=== PATIENT | female | born 1985 | race Caucasian/White ===

== ENCOUNTER 2017-05-18 12:57 | Emergency (ER) | payer OTHER, SELFPAY | END 2017-05-18 15:18 | disposition home or self-care (01) | PROVIDERS: Emergency Provider Nurse Practitioner Family; Visit Provider Nurse Practitioner Family | DX: N39.0 Urinary tract infection, site not specified (principal); R31.9 Hematuria, unspecified; F17.210 Nicotine dependence, cigarettes, uncomplicated; J45.909 Unspecified asthma, uncomplicated | CPT/HCPCS: 36415; 80053; 81003; 81025; 85025; 87086; 87804; 99201 ==

== ENCOUNTER 2017-05-21 15:09 | Emergency (ER) | payer OTHER, SELFPAY | END 2017-05-21 18:29 | disposition home or self-care (01) | PROVIDERS: Emergency Provider Emergency Medicine; Visit Provider Emergency Medicine | DX: R31.9 Hematuria, unspecified (principal); R30.0 Dysuria; J45.909 Unspecified asthma, uncomplicated; Z88.1 Allergy status to other antibiotic agents; Z88.0 Allergy status to penicillin; Z88.8 Allergy status to other drugs, medicaments and biological substances | CPT/HCPCS: 74177; 80053; 81003; 81025; 82150; 83690; 84703; 85025; 96374; 96375; 99284; J2405; Q9967 ==

== ENCOUNTER → 2017-06-22 10:43 | Outpatient (REF) | payer MEDICAID, SELFPAY ==
[2017-06-22 13:31] LABS: Basophils % 0.6 % (0.1-2.0); Eosinophils # 0.3 K/mm3 (0.0-0.4); Eosinophils % 3.8 % (0.1-12.0); Hematocrit 45.5 % (37.0-47.0); Hemoglobin 15.1 g/dL (12.2-16.2); Lymphocytes # 2.2 K/mm3 (0.7-4.5); Lymphocytes % 32.3 K/mm3 (10-50); Mean Corpuscular HGB Conc 33.1 g/dL (31.8-35.4); Mean Corpuscular Hemoglobin 29.9 pg (27.0-31.2); Mean Corpuscular Volume 90.3 fl (81-99); Mean Platelet Volume 7.8 fl (7.4-10.4); Monocytes # 0.4 K/mm3 (0.1-1.0); Monocytes % 5.1 % (1.7-9.3); Neutrophils % 58.2 % (37.0-80.0); Platelet Count 277 K/mm3 (142-424); Red Blood Count 5.04 M/mm3 (4.20-5.40); Red Cell Distribution Width 12.4 % (11.5-17.5); White Blood Count 6.9 K/mm3 (4.8-10.8)
[2017-06-22 13:44] LABS: Alanine Aminotransferase 34 U/L (12-78); Albumin Level 4.4 gm/dL (3.4-5.0); Albumin/Globulin Ratio 1.4 (1.1-1.8); Alkaline Phosphatase 64 U/L (46-116); Anion Gap 12.5 mEq/L (5-15); Aspartate Amino Transferase 17 U/L (15-37); Bilirubin,Total 0.4 mg/dL (0.2-1.0); Blood Urea Nitrogen 10 mg/dL (7-18); Carbon Dioxide 26 mmol/L (21.0-32.0); Chloride 104 mmol/L (98-107); Chol/HDL Ratio 4.1 (1-3.5); Cholesterol 203 mg/dL (140-200); Creatinine,Serum 0.58 mg/dL (0.55-1.02); Estimated Glomerular Filt Rate 123 ml/min (>60); GFR (African American) 149 ML/MIN (>60); Globulin 3.1 gm/dl (1.3-3.2); Glucose 93 mg/dL (74-106); HDL Cholesterol 49 mg/dL (29-89); LDL Cholesterol 114 mg/dL (0-130); Potassium 4.5 mmoL/L (3.5-5.1); Sodium 138 mmol/L (136-145); Thyroid Stimulating Hormone 2.61 uIU/ml (0.358-3.740); Total Protein,Serum 7.5 gm/dL (6.4-8.2); Triglycerides 201 mg/dL (30-200); VLDL Cholesterol 40 mg/dL (0-40)
[2017-06-23 12:17] LABS: Folate 10.5 ng/mL (>3.0); Vitamin B12 498 pg/mL (232-1245); Vitamin D 25 Hydroxy 25.4 ng/mL (30.0-100.0)
== END ==
LOC: LAB 10:43
PROVIDERS: Visit Provider Physician Assistant
DX: R07.89 Other chest pain (principal)
CPT/HCPCS: 80053; 80061; 82607; 82652; 82746; 84443; 85025

== ENCOUNTER → 2017-06-23 08:42 | Outpatient (CLI) | payer MEDICAID, SELFPAY ==
--- NOTE | 2017-06-23 08:46 | XR_ITS ---
XR chest 2V HISTORY: ITS.REASON: chest pain ORDERING PHYSICIAN: IRMA Camejo PATIENT AGE: 31 years COMPARISON: 11/01/2016 FINDINGS: The cardiomediastinal silhouette and pulmonary vascularity are within normal limits. The lungs are clear without infiltrates, suspicious nodules, or pleural effusions. No acute bony abnormalities. IMPRESSION: Negative chest, no acute finding
== END ==
PROVIDERS: PCP Physician Assistant; Visit Provider Physician Assistant
DX: R07.9 Chest pain, unspecified (principal)
CPT/HCPCS: 71046

== ENCOUNTER → 2018-01-10 13:32 | Outpatient (CLI) | payer MEDICAID, SELFPAY ==
--- NOTE | 2018-01-10 13:34 | MR_ITS ---
MR head/brain wo con HISTORY: Visual loss in the right eye with headache and blurred vision ITS.REASON: Vision loss ORDERING PHYSICIAN: IRMA Camejo PATIENT AGE: 32 years Comparison: 05/23/2014 TECHNIQUE: Standard multiplanar multiecho sequences are performed without contrast. FINDINGS: No midline shift, mass effect, intracranial hemorrhage, or hydrocephalus. No evidence of acute infarction. There is normal bettencourt-white matter differentiation. No abnormal white matter signal intensity evident. No obvious orbital or ocular mass. The pituitary gland is unremarkable as is the optic chiasm. The hippocampal gyri are unremarkable in the temporal horns are symmetric. Unremarkable craniocervical junction Minimal amount of fluid noted in the mastoid sinuses. No sinus air-fluid level. IMPRESSION: Negative MRI of the brain without contrast, no acute finding
== END ==
PROVIDERS: PCP Physician Assistant; Visit Provider Physician Assistant
DX: H54.61 Unqualified visual loss, right eye, normal vision left eye (principal)
CPT/HCPCS: 70551

== ENCOUNTER → 2018-02-28 10:53 | Outpatient (REF) | payer MEDICAID, SELFPAY | LOC: LAB 10:53 | PROVIDERS: Visit Provider Nurse Practitioner Family | DX: N39.0 Urinary tract infection, site not specified (principal); R31.9 Hematuria, unspecified | CPT/HCPCS: 87086; 87088; 87186 ==

== ENCOUNTER → 2018-05-08 18:18 | Outpatient (CLI) | payer MEDICAID, SELFPAY ==
[2018-05-08 19:10] LABS: HCG,Quantitative 0 mIU/mL
[2018-05-09 08:23] LABS: Basophils # 0.1 K/mm3 (0-0.2); Basophils % 1.1 % (0.1-2.0); Eosinophils # 0.2 K/mm3 (0.0-0.4); Eosinophils % 2.6 % (0.1-12.0); Hematocrit 45.4 % (37.0-47.0); Hemoglobin 14.5 g/dL (12.2-16.2); Lymphocytes # 1.5 K/mm3 (0.7-4.5); Lymphocytes % 22.2 % (10-50); Mean Corpuscular Hemoglobin 30.6 pg (27.0-31.2); Mean Corpuscular Volume 95.6 fl (81-99); Mean Platelet Volume 8.5 fl (7.4-10.4); Monocytes # 0.4 K/mm3 (0.1-1.0); Monocytes % 6.2 % (1.7-9.3); Neutrophils # 4.6 K/mm3 (1.8-7.8); Neutrophils % 67.9 % (37.0-80.0); Platelet Count 329 K/mm3 (142-424); Red Blood Count 4.75 M/mm3 (4.20-5.40); Red Cell Distribution Width 13.5 % (11.5-17.5); White Blood Count 6.8 K/mm3 (4.8-10.8)
[2018-05-09 09:11] LABS: Alanine Aminotransferase 45 U/L (12-78); Albumin/Globulin Ratio 1.3 (1.1-1.8); Alkaline Phosphatase 70 U/L (46-116); Anion Gap 14.4 mEq/L (5-15); Aspartate Amino Transferase 22 U/L (15-37); Bilirubin,Total 0.3 mg/dL (0.2-1.0); Blood Urea Nitrogen 8 mg/dL (7-18); Calcium 9.1 mg/dL (8.5-10.1); Carbon Dioxide 24 mmol/L (21.0-32.0); Chloride 104 mmol/L (98-107); Chol/HDL Ratio 3.3 (1-3.5); Cholesterol 187 mg/dL (140-200); Estimated Glomerular Filt Rate 117 ml/min (>60); GFR (African American) 142 ML/MIN (>60); Globulin 3.2 gm/dl (1.3-3.2); Glucose 89 mg/dL (74-106); HDL Cholesterol 57 mg/dL (29-89); LDL Cholesterol 94 mg/dL (0-130); Potassium 4.4 mmoL/L (3.5-5.1); Sodium 138 mmol/L (136-145); T4 (Thyroxine) 6.3 ug/dl (4.7-13.3); Thyroid Stimulating Hormone 1.62 uIU/ml (0.358-3.740); Total Protein,Serum 7.2 gm/dL (6.4-8.2); Triglycerides 182 mg/dL (30-200); VLDL Cholesterol 36 mg/dL (0-40)
[2018-05-10 14:20] LABS: Vitamin D 25 Hydroxy 27.9 ng/mL (30.0-100.0)
== END ==
PROVIDERS: Visit Provider Physician Assistant
DX: R53.81 Other malaise (principal); R23.8 Other skin changes
CPT/HCPCS: 80053; 80061; 82652; 84436; 84443; 84702; 85025; 87086

== ENCOUNTER → 2018-05-16 10:28 | Outpatient (CLI) | payer MEDICAID, SELFPAY ==
[2018-05-16 12:03] LABS: Activated Partial Thrombo Time 26.8 seconds (23.6-34.0); INR 0.98 (0.9-1.1); Prothrombin Time 10.1 seconds (9.4-11.8)
[2018-05-16 12:15] LABS: Erythrocyte Sedimentation Rate 11 mm/hr (0-20)
[2018-05-17 13:17] LABS: Anti-Centromere B Antibodies <0.2 AI (0.0-0.9); Anti-Jo-1 <0.2 AI (0.0-0.9); Anti-Smith Antibody <0.2 AI (0.0-0.9); Antichromatin Antibodies <0.2 AI (0.0-0.9); Antiscleroderma-70 Antibodies <0.2 AI (0.0-0.9); RNP Antibodies <0.2 AI (0.0-0.9); Sjogren's Anti-SS-A <0.2 AI (0.0-0.9); Sjogren's Anti-SS-B <0.2 AI (0.0-0.9)
[2018-05-17 15:42] LABS: Anti-DNA (DS) Ab Qn <1 IU/mL (0-9)
[2018-05-18 21:13] LABS: PTT-LA 36.4 sec (0.0-51.9); dRVVT 44.7 sec (0.0-47.0)
[2018-05-19 06:04] LABS: Lupus Reflex Interpretation Comment: (.)
== END ==
PROVIDERS: Visit Provider Physician Assistant
DX: R58 Hemorrhage, not elsewhere classified (principal)
CPT/HCPCS: 36415; 85610; 85613; 85651; 85730; 86225; 86235

== ENCOUNTER → 2018-05-23 10:32 | Outpatient (CLI) | payer MEDICAID, SELFPAY ==
--- NOTE | 2018-05-23 10:35 | US_ITS ---
US Arterial Ankle Brachial Ind History: ITS.REASON: bilateral foot pain, diminished pulses bilateral claudication, bilateral weak pulses, bilateral rest pain, current smoker ORDERING PHYSICIAN: IRMA Camejo PATIENT AGE: 32 years TECHNIQUE: Segmental pressures obtained of both right and left leg. These are compared to brachial blood pressure to yield index at each level sampled including summary ADRIANA. The data sheets from the procedure are available in PACS FINDINGS Rest study only performed today No prior studies available for comparison. Blood pressures reported are in millimeters mercury. RIGHT LEG ADRIANA = 1.2. RIGHT LEG TBI=0.9 Brachial BP: 132 Thigh BP: 137 Calf BP: 139 Ankle PT: 158 Ankle DP : 152 Digit =113 LEFT LEG ADRIANA = 1.1 LEFT LEG TBI= 1.0 Brachial BPD: 133 Thigh BP: 136 Calf BP: 141 Ankle PT:152 Ankle DP: 142 Digit = 135 Pulses and waveforms: Normal IMPRESSION: The ABIs as reported above are within normal limits. Waveforms and pulses are also unremarkable.
== END ==
PROVIDERS: PCP Physician Assistant; Visit Provider Physician Assistant
DX: M79.671 Pain in right foot (principal); M79.672 Pain in left foot; R09.89 Other specified symptoms and signs involving the circulatory and respiratory systems; R58 Hemorrhage, not elsewhere classified
CPT/HCPCS: 93922

== ENCOUNTER 2018-08-28 12:43 | Outpatient (RCR) | payer MEDICAID, SELFPAY ==
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
== END 2018-08-28 12:45 | disposition home or self-care (01) ==
LOC: PT 12:43
PROVIDERS: Visit Provider Emergency Medicine
DX: S89.91XA Unspecified injury of right lower leg, initial encounter (principal); M25.561 Pain in right knee
CPT/HCPCS: 97163

== ENCOUNTER → 2018-08-28 15:58 | Outpatient (CLI) | payer MEDICAID, SELFPAY ==
--- NOTE | 2018-08-28 15:59 | MR_ITS ---
MR knee RT wo con HISTORY: Right knee pain anteriorly with popping ITS.REASON: R knee pain, X-Ray WNL, extreme pain ORDERING PHYSICIAN: Faisal Kunz PATIENT AGE: 32 years Comparison: 08/14/2018 TECHNIQUE: Standard multiplanar multiecho sequences are performed without contrast. FINDINGS: The cruciate ligaments, collateral ligaments, patellar tendon, and quadriceps tendon have an unremarkable appearance. Patellar cartilage is well preserved. No evidence of meniscal tear. There is a small knee joint effusion. Varices are noted along the medial aspect of the knee within the subcutaneous soft tissues. The joint spaces are well-preserved. No bone bruise or bone marrow edema evident IMPRESSION: 1.Small knee joint effusion 2. Otherwise negative Negative MRI of the right knee with no evidence of internal derangement
== END ==
PROVIDERS: PCP Nurse Practitioner Family; Visit Provider Nurse Practitioner Family
DX: M25.561 Pain in right knee (principal)
CPT/HCPCS: 73721

== ENCOUNTER 2019-04-17 16:25 | Outpatient (CLI) | payer OTHER, SELFPAY ==
[2019-04-17 16:35] VITALS: BP 135/95; PULSE 109; RESP 18; O2SAT 95
[2019-04-17 17:37] VITALS: BP 135/94; PULSE 89; RESP 18
== END 2019-04-17 17:37 | disposition home or self-care (01) ==
LOC: INF 16:26
PROVIDERS: PCP Physician Assistant; Visit Provider Physician Assistant
DX: E86.0 Dehydration (principal); R11.2 Nausea with vomiting, unspecified
CPT/HCPCS: 96360; 96375

== ENCOUNTER → 2019-08-14 09:14 | Outpatient (CLI) | payer OTHER, SELFPAY ==
--- NOTE | 2019-08-14 09:45 | CT_ITS ---
PROCEDURE: CT ANGIO CHEST CLINCIAL INDICATION: Dyspnea, chest pain, HTN, tachycardia Shortness of breath, chest pain, hypertension COMPARISON: XR CHEST 2V from 08/02/2019 TECHNIQUE: IV Contrast: 70ML OPTIRAY 350 Axial images obtained with sagittal and coronal reformats. All CT scans at the facility use one or more dose reduction, viz: automated exposure control, ma/kV adjustment per patient size (including targeted exams where dose is matched to indication, i.e. head), or iterative reconstruction technique. FINDINGS: HEART AND MEDIASTINAL STRUCTURES: No evidence of aortic aneurysm, pulmonary embolus, or aortic dissection. LUNGS AND PLEURAL SPACES: 4 mm noncalcified nodule right upper lobe nonspecific too small to categorize image 35 series 3. No other abnormalities are evident. BONY STRUCTURES: No acute bony abnormalities apparent. UPPER ABDOMEN: Unremarkable. ADDITIONAL FINDINGS: No other significant abnormalities. IMPRESSION: No acute finding. Dictated by: Cristi Guy MD 08/14/2019 12:11 Electronically signed by Cristi Guy MD in [place] 08/14/2019 12:11
== END ==
PROVIDERS: PCP Physician Assistant; Visit Provider Physician Assistant
DX: R06.00 Dyspnea, unspecified (principal); R00.0 Tachycardia, unspecified; R07.9 Chest pain, unspecified; I10 Essential (primary) hypertension
CPT/HCPCS: 71275; 93306; Q9967

== ENCOUNTER → 2019-08-24 08:56 | Outpatient (CLI) | payer OTHER, SELFPAY ==
--- NOTE | 2019-08-24 | CA_ITS ---
APPROVED REPORT Exam: Exercise Treadmill Technologist: Lachelle Hubbard, Ht: 5 ft 8 in Wt: 223 lbs BSA: 2.14 m2 HR: 108 bpm BP: 129/86 mmHg Medical History Medical History: HTN Medications: BuspAR,,,,, PropANOLOL,,,,, Cardiac Risk Factors: HTN, FHX of CAD Stress Test Details Test: Dejon HR Resting HR: 102 bpm Max Heart Rate (APMHR): 189 bpm Max HR Achieved: 172 bpm Target HR (85% APMHR): 160 bpm % of APMHR: 91 Recovery HR: 122 bpm BP Resting BP: 131.0/87.0 mmHg Max BP: 158.0/90.0 mmHg Recovery BP: 154.0/100.0 mmHg ECG Resting ECG: SINUS TACHYCARDIA Clinical Exercise duration: 07:17 min Highest Stage Achieved: Exercise capacity: 10.1 METs Stress ECG Conclusion DEJON PROTOCOL COMPLETED. EXERCISED 7:17. METS =10.1. TEST STOPPED DUE TO SHORTNESS OF BREATH RESOLVED IN RECOVERY. NO CHEST PAIN. POSITIVE SOA AT PEAK EXERICSE. NO ECTOPY NOTED. LESS THAN 1.5MM ST DEPRESSION. GXT ONLY. APPROPRIATE BP RESPONSE. NO ECTOPY. GOOD EXERCISE CAPACITY. NORMAL GXT Test Summary REST . . . . . . . Standing REST . . . . . . . Sitting REST 02:51 0.0 0.0 102 . 131/ 87 . . Stage 1 01:00 10.0 1.7 119 . . . . Stage 1 02:00 10.0 1.7 131 . . . . Stage 1 03:00 10.0 1.7 129 . 142/ 90 . . Stage 2 01:00 12.0 2.5 144 . . . . Stage 2 02:00 12.0 2.5 151 . 158/ 90 . . Stage 2 03:00 12.0 2.5 154 . 158/ 90 . . Stage 3 01:00 14.0 3.4 169 . . . . Stage 3 01:17 14.0 3.4 171 . . . Stop exercise at 07:17 RECOVERY 01:00 0.0 0.0 149 . . . . RECOVERY 02:00 0.0 0.0 127 . 154/100 . . RECOVERY 03:00 0.0 0.0 126 . 144/ 97 . . RECOVERY 04:00 0.0 0.0 117 . 151/ 92 . . RECOVERY 05:00 0.0 0.0 116 . 151/ 92 . . RECOVERY 05:37 0.0 0.0 106 . 138/ 88 . . Electronically signed by : Will Le, 08/27/2019 13:45:17
== END ==
PROVIDERS: PCP Physician Assistant; Visit Provider Nurse Practitioner Family
DX: R07.9 Chest pain, unspecified (principal); R06.02 Shortness of breath
CPT/HCPCS: 93017

== ENCOUNTER 2019-10-13 21:52 | Emergency (ER) | payer OTHER, SELFPAY ==
[2019-10-13 22:05] VITALS: BP 138/98; PULSE 112; RESP 18; TEMP 36.7; O2SAT 99; BMI 32.1
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
[2019-10-13 22:21] VITALS: BP 142/74; PULSE 81; RESP 19; TEMP 36.7; O2SAT 98
== END 2019-10-13 22:31 | disposition home or self-care (01) ==
PROVIDERS: Emergency Provider Emergency Medicine; PCP Physician Assistant
DX: T23.061A Burn of unspecified degree of back of right hand, initial encounter (principal); Y92.89 Other specified places as the place of occurrence of the external cause; X17.XXXA Contact with hot engines, machinery and tools, initial encounter; F41.8 Other specified anxiety disorders; I10 Essential (primary) hypertension; Z87.442 Personal history of urinary calculi; F17.210 Nicotine dependence, cigarettes, uncomplicated; Z88.0 Allergy status to penicillin; Z90.09 Acquired absence of other part of head and neck
CPT/HCPCS: 99281

== ENCOUNTER → 2019-10-15 09:58 | Outpatient (CLI) | payer OTHER, SELFPAY ==
--- NOTE | 2019-10-15 10:09 | XR_ITS ---
PROCEDURE: XR CHEST 2V CLINICAL HISTORY: Cough (COVID 19 negative) COMPARISON: CXR CHEST(2 VIEWS-NOT PORTABLE) from 11/01/2016 CXR2V XR chest 2V from 06/23/2017 XR CHEST 2V from 08/02/2019 FINDINGS: The cardiomediastinal silhouette and pulmonary vascularity are within normal limits. The lungs are clear without infiltrates, suspicious nodules, or pleural effusions. No acute bony abnormalities. IMPRESSION: No acute findings. Dictated by: Cristi Guy MD 10/15/2019 10:55 Electronically signed by Cristi Guy MD in [place] 10/15/2019 10:55
== END ==
PROVIDERS: PCP Physician Assistant; Visit Provider Physician Assistant
DX: R05 Cough (principal)
CPT/HCPCS: 71046

== ENCOUNTER → 2019-10-30 15:27 | Outpatient (CLI) | payer OTHER, SELFPAY ==
[2019-10-30 22:56] LABS: Coronavirus 19 IgG Antibody Negative (Negative); Coronavirus 19 IgM Antibody Negative (Negative)
== END ==
PROVIDERS: Visit Provider Physician Assistant
DX: Z03.818 Encounter for observation for suspected exposure to other biological agents ruled out (principal)
CPT/HCPCS: 36415; 86328

== ENCOUNTER → 2020-02-07 16:00 | Outpatient (CLI) | payer OTHER, SELFPAY ==
[2020-02-12 16:01] LABS: Adenovirus F 40/41, stool Not Detected (NotDetected); Astrovirus Not Detected (NotDetected); Campylobacter Not Detected (NotDetected); Clostridium Difficile A/B, PCR Not Detected (NotDetected); Cryptosporidium Not Detected (NotDetected); Cyclospora Cayetanesis Not Detected (NotDetected); Entamoeba histolytica Not Detected (NotDetected); Enteroaggregative E coli Not Detected (NotDetected); Enteropathogenic E coli Not Detected (NotDetected); Enterotoxigenic E coli Not Detected (NotDetected); Giardia lamblia Not Detected (NotDetected); Norovirus Not Detected (NotDetected); Plesimonas Shigalloides, PCR Not Detected (NotDetected); Rotavirus A Not Detected (NotDetected); Salmonella, PCR Not Detected (NotDetected); Sapovirus Not Detected (NotDetected); Shiga-like toxin E coli Not Detected (NotDetected); Shigella Enterovasive E coli Not Detected (NotDetected); Vibrio Cholerae Not Detected (NotDetected); Vibrio, PCR Not Detected (NotDetected); Yersinia Entercolitica, PCR Not Detected (NotDetected)
== END ==
PROVIDERS: Visit Provider Nurse Practitioner Family
DX: R19.7 Diarrhea, unspecified (principal)
CPT/HCPCS: 87506

== ENCOUNTER → 2020-02-27 16:25 | Outpatient (CLI) | payer OTHER, SELFPAY | PROVIDERS: Visit Provider Physician Assistant | DX: N20.0 Calculus of kidney (principal) | CPT/HCPCS: 87086; 87088; 87186 ==

== ENCOUNTER 2020-02-29 15:20 | Outpatient (CLI) | payer OTHER, SELFPAY ==
[2020-02-29 15:22] VITALS: BMI 32.5
[2020-02-29 15:43] LABS: Chloride 106 mmol/L (98-107); Sodium 137 mmol/L (136-145)
[2020-02-29 15:44] LABS: Potassium 3.5 mmoL/L (3.5-5.1)
[2020-02-29 15:45] VITALS: BP 131/91; PULSE 85; RESP 20; TEMP 36.4; O2SAT 95
[2020-02-29 15:46] LABS: Blood Urea Nitrogen 12 mg/dl (7-17)
[2020-02-29 15:47] LABS: Anion Gap 12.5 mEq/L (5-15); Calcium 9.1 mg/dl (8.4-10.2); Carbon Dioxide 22 mmol/L (22.0-30.0); Creatinine Clearance Estimated 206 mL/min (50-200); Estimated Glomerular Filt Rate 116 ml/min (>60); GFR (African American) 140 ML/MIN (>60); Glucose 166 mg/dl (74-100)
== END 2020-02-29 15:45 | disposition home or self-care (01) ==
LOC: INF 15:20
PROVIDERS: Visit Provider Nurse Practitioner Family
DX: N39.0 Urinary tract infection, site not specified (principal); Z16.12 Extended spectrum beta lactamase (ESBL) resistance
CPT/HCPCS: 80048; 96372; J1335

== ENCOUNTER 2020-03-01 06:47 | Outpatient (CLI) | payer OTHER, SELFPAY ==
[2020-03-01 07:12] VITALS: BP 113/69; PULSE 88; RESP 18; O2SAT 97
== END 2020-03-01 07:30 | disposition home or self-care (01) ==
LOC: INF 06:48
PROVIDERS: PCP Physician Assistant; Visit Provider Nurse Practitioner Family
DX: N39.0 Urinary tract infection, site not specified (principal); Z16.12 Extended spectrum beta lactamase (ESBL) resistance
CPT/HCPCS: 96372; 96374; J1335

== ENCOUNTER 2020-03-02 06:42 | Outpatient (CLI) | payer OTHER, SELFPAY ==
[2020-03-02 06:52] VITALS: BMI 32.5
[2020-03-02 07:15] VITALS: BP 131/84; PULSE 99; RESP 20; TEMP 36.9; O2SAT 95
--- NOTE | 2020-03-02 07:15 | PC.NURSE ---
verified reconstitution dose and substance with agata nath from pharmacy. 3.2 ml of lidocaine
[2020-03-02 07:16] VITALS: BP 131/84; PULSE 99; RESP 20; TEMP 36.9; O2SAT 95
--- NOTE | 2020-03-02 07:21 | PC.NURSE ---
tolerated both IM injections well to both left and right gluteus medius.
--- NOTE | 2020-03-02 07:25 | PC.NURSE ---
pt reports throat soreness and pain. nurse examined throat. told patient we would talk with md to see about ordering something because that likelihood of her developing thrush
[2020-03-02 07:30] VITALS: BP 131/84; PULSE 99; RESP 20; TEMP 36.9; O2SAT 95
--- NOTE | 2020-03-02 07:30 | PC.NURSE ---
patient off unit at this time. no distress noted
== END 2020-03-02 07:30 | disposition home or self-care (01) ==
LOC: INF 06:43
PROVIDERS: PCP Physician Assistant; Visit Provider Nurse Practitioner Family
DX: N39.0 Urinary tract infection, site not specified (principal); Z16.12 Extended spectrum beta lactamase (ESBL) resistance
CPT/HCPCS: 96372; 96374; J1335

== ENCOUNTER 2020-03-03 08:10 | Outpatient (CLI) | payer OTHER, SELFPAY ==
[2020-03-03 08:27] VITALS: BP 128/70; PULSE 102; RESP 18; TEMP 36.8; O2SAT 96
== END 2020-03-03 08:27 | disposition home or self-care (01) ==
LOC: INF 08:12
PROVIDERS: Visit Provider Nurse Practitioner Family
DX: N39.0 Urinary tract infection, site not specified (principal); Z16.12 Extended spectrum beta lactamase (ESBL) resistance
CPT/HCPCS: 96372; J1335

== ENCOUNTER → 2020-03-04 11:52 | Outpatient (CLI) | payer OTHER, SELFPAY ==
[2020-03-04 11:56] VITALS: BMI 32.5
--- NOTE | 2020-03-04 12:26 | XR_ITS ---
PROCEDURE: XR CHEST PORTABLE PICC PLAC CLINICAL HISTORY: PICC line placement COMPARISON: CR CXR2V XR chest 2V from 06/23/2017 CR XR CHEST 2V from 08/02/[address] ANGIO CHEST from 08/14/2019 DX XR CHEST 2V from 10/15/2019 FINDINGS: A PICC line has been inserted by the left subclavian approach. The tip is in satisfactory position in the region of the superior vena cava. Normal heart size. The lungs are clear without infiltrates, suspicious nodules, or pleural effusions. No acute bony abnormalities. IMPRESSION: PICC line in good position. Dictated by: Cristi Guy MD 03/04/2020 12:45 Cristi Guy MD in [place] 03/04/2020 12:45
[2020-03-04 13:00] VITALS: BP 122/74; PULSE 78; RESP 20; TEMP 36.9; O2SAT 95
[2020-03-04 13:30] VITALS: BP 118/74; PULSE 78; RESP 20; TEMP 36.9; O2SAT 95
== END ==
PROVIDERS: Visit Provider Nurse Practitioner Family
DX: N39.0 Urinary tract infection, site not specified (principal); Z16.12 Extended spectrum beta lactamase (ESBL) resistance
CPT/HCPCS: 36569; 71045; 96365; C1751; J1335

== ENCOUNTER → 2020-03-05 08:25 | Outpatient (CLI) | payer OTHER, SELFPAY ==
[2020-03-05 08:42] VITALS: BP 137/87; PULSE 88; RESP 18; TEMP 37.3; O2SAT 97
[2020-03-05 09:25] VITALS: BP 137/91; PULSE 76; RESP 18; TEMP 37.1; O2SAT 97
== END ==
PROVIDERS: Visit Provider Nurse Practitioner
DX: N39.0 Urinary tract infection, site not specified (principal); Z16.12 Extended spectrum beta lactamase (ESBL) resistance
CPT/HCPCS: 96365; J1335

== ENCOUNTER → 2020-03-05 15:11 | Outpatient (CLI) | payer OTHER, SELFPAY ==
[2020-03-05 16:58] LABS: Hemoglobin A1C 5.5 % (4.0-6.0)
[2020-03-05 22:11] LABS: Adenovirus F 40/41, stool Not Detected (NotDetected); Astrovirus Not Detected (NotDetected); Campylobacter Not Detected (NotDetected); Clostridium Difficile A/B, PCR Not Detected (NotDetected); Cryptosporidium Not Detected (NotDetected); Cyclospora Cayetanesis Not Detected (NotDetected); Enteroaggregative E coli Not Detected (NotDetected); Enteropathogenic E coli Not Detected (NotDetected); Enterotoxigenic E coli Not Detected (NotDetected); Giardia lamblia Not Detected (NotDetected); Norovirus Not Detected (NotDetected); Plesimonas Shigalloides, PCR Not Detected (NotDetected); Rotavirus A Not Detected (NotDetected); Salmonella, PCR Not Detected (NotDetected); Sapovirus Not Detected (NotDetected); Shiga-like toxin E coli Not Detected (NotDetected); Shigella Enterovasive E coli Not Detected (NotDetected); Vibrio Cholerae Not Detected (NotDetected); Vibrio, PCR Not Detected (NotDetected); Yersinia Entercolitica, PCR Not Detected (NotDetected)
[2020-03-06 00:40] LABS: Entamoeba histolytica Not Detected (NotDetected)
== END ==
PROVIDERS: Physician Assistant; Visit Provider Nurse Practitioner Family
DX: E11.9 Type 2 diabetes mellitus without complications (principal); A04.72 Enterocolitis due to Clostridium difficile, not specified as recurrent; R13.10 Dysphagia, unspecified
CPT/HCPCS: 83036; 87507

== ENCOUNTER 2020-03-06 08:18 | Outpatient (CLI) | payer OTHER, SELFPAY ==
[2020-03-06 08:21] VITALS: BP 148/82; PULSE 80; RESP 18; TEMP 36.6; O2SAT 98
[2020-03-06 09:05] VITALS: BP 132/74; PULSE 74; RESP 16; TEMP 36.6; O2SAT 98
== END 2020-03-06 09:05 | disposition home or self-care (01) ==
LOC: INF 08:19
PROVIDERS: Visit Provider Physician Assistant
DX: N39.0 Urinary tract infection, site not specified (principal); Z16.12 Extended spectrum beta lactamase (ESBL) resistance
CPT/HCPCS: 96365; J1335

== ENCOUNTER 2020-03-07 08:11 | Outpatient (CLI) | payer OTHER, SELFPAY ==
[2020-03-07 08:51] VITALS: BMI 32.5
[2020-03-07 09:05] LABS: Microscopic, Urine URINE MICROSCOPIC (MICROSCOPIC)
[2020-03-07 09:08] LABS: Appearance,Urine CLEAR (Clear); Bilirubin,Urine Negative (Negative); Blood, Urine Negative (Negative); Color,Urine DK YELLOW (Yellow); Glucose,Urine (UA) Negative (Negative); Ketones,Urine Negative (Negative); Leukocyte Esterase,Urine 1+ (Negative); Nitrate,Urine POSITIVE (Negative); PH,Urine 7.5 (5.0-8.5); Protein,Urine Negative (Negative); Specific Gravity, Urine 1.015 (1.005-1.030); Urobilinogen,Urine 0.2 EU/dl (0.2)
[2020-03-07 09:25] LABS: Bacteria,Urine 2+ /lpf; WBC,Urine 20-50 #/hpf (0-3)
== END 2020-03-07 09:05 | disposition home or self-care (01) ==
LOC: INF 08:11
PROVIDERS: Visit Provider Physician Assistant
DX: N39.0 Urinary tract infection, site not specified (principal); Z16.12 Extended spectrum beta lactamase (ESBL) resistance
CPT/HCPCS: 81001; 87086; G0463

== ENCOUNTER → 2020-04-23 10:56 | Outpatient (CLI) | payer OTHER, SELFPAY | PROVIDERS: PCP Physician Assistant; Visit Provider Physician Assistant | DX: Z03.818 Encounter for observation for suspected exposure to other biological agents ruled out (principal) | CPT/HCPCS: U0003 ==

== ENCOUNTER → 2020-04-24 11:39 | Outpatient (CLI) | payer OTHER, SELFPAY ==
--- NOTE | 2020-04-24 11:43 | XR_ITS ---
PROCEDURE: XR ANKLE LT MIN 3V CLINICAL INDICATION: left ankle pain COMPARISON: No exams were available for comparison FINDINGS: No fracture or dislocation. No lytic or blastic change. There is normal mineralization. The joint spaces are well-preserved. No significant degenerative/arthritic changes. No erosive changes evident. Other findings:None. IMPRESSION: No acute findings. Dictated by: Cristi Guy MD 04/24/2020 11:55 Cristi Guy MD in [place] 04/24/2020 11:55
== END ==
PROVIDERS: PCP Physician Assistant; Visit Provider Physician Assistant
DX: M25.572 Pain in left ankle and joints of left foot (principal)
CPT/HCPCS: 73610

== ENCOUNTER 2020-04-24 11:55 | Outpatient (RCR) | payer OTHER, SELFPAY | END 2020-04-24 12:30 | disposition home or self-care (01) | LOC: PT 11:55 | PROVIDERS: Visit Provider Physician Assistant | DX: M25.572 Pain in left ankle and joints of left foot (principal) ==

== ENCOUNTER → 2020-06-16 15:14 | Outpatient (CLI) | payer OTHER, SELFPAY | PROVIDERS: PCP Physician Assistant; Visit Provider Physician Assistant | DX: Z11.52 Encounter for screening for COVID-19 (principal) | CPT/HCPCS: U0003 ==

== ENCOUNTER → 2020-07-10 17:00 | Outpatient (CLI) | payer OTHER, SELFPAY | PROVIDERS: Visit Provider Physician Assistant | DX: L02.216 Cutaneous abscess of umbilicus (principal); T14.8XXA Other injury of unspecified body region, initial encounter | CPT/HCPCS: 87070; 87077; 87186; 87205 ==

== ENCOUNTER → 2020-10-17 11:54 | Outpatient (CLI) | payer OTHER, SELFPAY ==
[2020-10-17 12:30] LABS: Basophils # 0.1 K/mm3 (0-0.2); Basophils % 0.5 % (0.1-2.0); Eosinophils # 0.2 K/mm3 (0.0-0.4); Eosinophils % 2.1 % (0.1-12.0); Hematocrit 45.5 % (37.0-47.0); Lymphocytes # 2.3 K/mm3 (0.7-4.5); Lymphocytes % 21.9 % (10-50); Mean Corpuscular Volume 90.9 fl (81-99); Mean Platelet Volume 7.5 fl (7.4-10.4); Monocytes # 0.4 K/mm3 (0.1-1.0); Monocytes % 3.4 % (1.7-9.3); Neutrophils # 7.5 K/mm3 (1.8-7.8); Neutrophils % 72.1 % (37.0-80.0); Platelet Count 340 K/mm3 (142-424); Red Blood Count 5.01 M/mm3 (4.20-5.40); Red Cell Distribution Width 12.8 % (11.5-17.5); White Blood Count 10.4 K/mm3 (4.8-10.8)
[2020-10-17 12:43] LABS: Alanine Aminotransferase 26 U/L (12-78); Albumin Level 4.8 g/dl (3.5-5.0); Albumin/Globulin Ratio 1.7 (1.1-1.8); Alkaline Phosphatase 69 U/L (38-126); Aspartate Amino Transferase 25 U/L (14-36); Bilirubin,Total 0.5 mg/dl (0.2-1.3); Blood Urea Nitrogen 13 mg/dl (7-17); Carbon Dioxide 29 mmol/L (22.0-30.0); Chloride 106 mmol/L (98-107); Estimated Glomerular Filt Rate 96 ml/min (>60); GFR (African American) 117 ML/MIN (>60); Globulin 2.9 g/dL (1.3-3.2); Glucose 104 mg/dl (74-100); Sodium 140 mmol/L (136-145); Total Protein,Serum 7.7 g/dl (6.3-8.2)
[2020-10-17 12:45] LABS: Amphetamine/Metha Screen,Urine Negative ng/ml (<1000); Benzodiazepines Screen,Urine Negative ng/ml (<200)
[2020-10-17 12:46] LABS: Barbiturates Screen,Urine Negative ng/ml (<200)
[2020-10-17 12:47] LABS: Cannabinoid Screen,Urine Positive ng/ml (<50); Methadone Screen,Urine Negative ng/ml (<300)
[2020-10-17 12:48] LABS: Cocaine Screen,Urine Negative ng/ml (<300); Opiate Screen,Urine Negative ng/ml (<300)
[2020-10-17 12:49] LABS: Phencyclidine Screen,Urine Negative ng/ml (<25)
== END ==
PROVIDERS: Visit Provider Nurse Practitioner Psychiatric/Mental Health
DX: Z00.00 Encounter for general adult medical examination without abnormal findings (principal); Z02.83 Encounter for blood-alcohol and blood-drug test; F31.9 Bipolar disorder, unspecified; F10.20 Alcohol dependence, uncomplicated; Z79.899 Other long term (current) drug therapy
CPT/HCPCS: 36415; 80053; 80305; 85025

== ENCOUNTER 2020-11-17 17:54 | Emergency (ER) | payer OTHER, SELFPAY ==
[2020-11-17 17:59] VITALS: BP 132/77; PULSE 109; RESP 16; TEMP 36.8; O2SAT 98; BMI 30.4
--- NOTE | 2020-11-17 18:26 | HMH.EDUTC ---
[facility] [place]ression: Pleurisy Acute bronchitis Qualifiers: Bronchitis organism: unspecified organism Qualified Code(s): J20.9 - Acute bronchitis, unspecified Disposition: Home, Self-Care Condition on Discharge: Good Instructions: DI for Acute Bronchitis, Preventing the Spread of Coronavirus Discharge Instructions Additional Instructions: Drink plenty of fluids. Take tylenol for pain or fever. Return if you begin to have difficulty breathing. Follow up with your regular doctor. GO TO THE ER FOR ANY WORSENING SYMPTOMS Prescriptions: Brompheniramine/Pseudoephed/Dm [Bromfed Dm Cough Syrup] 5 ml PO Q6HP PRN #240 syrup PRN Reason: Cough Transmission Status: Received by [facility] methylPREDNISolone [Medrol] 4 mg PO DIRECTED 6 Days #21 tab.ds.pk Transmission Status: Received by [facility] Azithromycin [Z-Stoney 250mg Tab*] 250 mg PO UD DOSE PK #6 tab Transmission Status: Received by [facility] Referrals: Neema Leslie PA [Primary Care Provider] - Forms: Work/School Release Time of Disposition: 19:07 Medical Decision Making - Medical Records Medical records reviewed: No: I reviewed the patient's medical records. - Louie Inquiry Pt receiving controlled substance: No Vital Signs: 11/17/20 17:59 11/17/20 18:37 Temperature 98.3 F 98.3 F Temperature Source Oral Pulse Rate 109 H Pulse Rate [Left] 109 H Respiratory Rate 16 20 Blood Pressure 132/77 Blood Pressure [Right Arm] 132/77 Blood Pressure Mean [Right Arm] 95 02 Sat by Pulse Oximetry 98 - Lab Data Lab Results 11/17/20 18:38: Influenza Type A Ag Negative, Influenza Type B Ag Negative 11/17/20 18:38: Strep Scn [facility] Negative Orders (Tests/Meds): ED MEDICATIONS Discontinued Medications Generic Name Dose Route Start Last Admin Trade Name Freq PRN Reason Stop Dose Admin Azithromycin 500 mg 11/17/20 19:00 11/17/20 19:08 Azithromycin 250mg Tablet PO 11/17/20 19:01 500 mg ONCE ONE Administration Protocol Ibuprofen 800 mg 11/17/20 19:00 11/17/20 19:08 Ibuprofen 400 Mg Tablet PO 11/17/20 19:01 800 mg ONCE ONE Administration [facility] [place] - General Stated complaint: pain when breathing, fever Time Seen by Provider: 11/17/20 18:27 Mode of Arrival: Ambulatory Source of Information: Patient Limitations: No Limitations Description of Symptoms (Recalled from Triage Doc. by RN): Pt states that she has had a fever, right flank pain going into the hip and painful breathing for two days. HEENT Symptoms (Recalled from RN notes): No Resp Symptoms (Recalled from RN notes): Yes Skin Symptoms (Recalled from RN notes): No MS Symptoms (Recalled from RN notes): No Functional Status (Recalled from RN notes): wnl - History of Present Illness Provider Complaint: She states that for the past 2 days she has had chilling, body aches, cough and she has felt bad. She has not been vaccinated against covid. She denies sore throat. - Related Data Previous Rx's Medication Instructions Recorded ascorbic acid (vitamin C) 1,000 mg 1 g PO DAILY #90 tab 09/01/20 tablet cholecalciferol (vitamin D3) 50 100 mcg PO DAILY #180 cap 09/01/20 mcg (2,000 unit) capsule multivitamin 1 tab PO DAILY #90 tab 09/01/20 vitamin B complex 1 tab PO DAILY #90 tab 09/01/20 ammonium lactate 5 % lotion 1 applic TOPICAL BID #226 g 09/16/20 bupropion HCl 150 mg 24 hr tablet, 150 mg PO DAILY #90 tab 11/14/20 extended release cariprazine 1.5 mg capsule 1.5 mg PO DAILY #30 cap 11/14/20 fluoxetine 20 mg capsule 20 mg PO DAILY #14 cap 11/14/20 prazosin 2 mg capsule 2 mg PO QHS #30 cap 11/14/20 Azithromycin [Z-Stoney 250mg Tab*] 250 mg PO UD DOSE PK #6 tab 11/17/20 Brompheniramine/Pseudoephed/Dm 5 ml PO Q6HP PRN #240 syrup 11/17/20 [Bromfed Dm Cough Syrup] methylPREDNISolone [Medrol] 4 mg PO DIRECTED 6 Days #21 11/17/20 tab.ds.pk Allergies
[2020-11-17 18:37] VITALS: BP 132/77; PULSE 109; RESP 20; TEMP 36.8; O2SAT 98
[2020-11-17 18:46] LABS: UTC Strep Screen (Rapid) Negative (Negative)
[2020-11-17 18:48] LABS: UTC Influenza A Antigen Negative (Negative)
[2020-11-17 18:49] LABS: UTC Influenza B Antigen Negative (Negative)
== END 2020-11-17 19:09 | disposition home or self-care (01) ==
PROVIDERS: Emergency Provider Nurse Practitioner Family; PCP Physician Assistant
DX: R09.1 Pleurisy (principal); J20.9 Acute bronchitis, unspecified; I10 Essential (primary) hypertension; F41.8 Other specified anxiety disorders; F17.210 Nicotine dependence, cigarettes, uncomplicated
CPT/HCPCS: 87804; 87880; 99202; G0463

== ENCOUNTER 2021-01-24 17:28 | Emergency (ER) | payer OTHER, SELFPAY ==
[2021-01-24 18:30] VITALS: BP 102/76; PULSE 86; RESP 19; TEMP 37; O2SAT 99; BMI 30.4
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
[2021-01-24 19:02] VITALS: BP 102/76; PULSE 86; RESP 19; TEMP 37; O2SAT 99
== END 2021-01-24 19:05 | disposition home or self-care (01) ==
PROVIDERS: Emergency Provider Nurse Practitioner; PCP Physician Assistant
DX: Z20.822 Contact with and (suspected) exposure to COVID-19 (principal); R11.10 Vomiting, unspecified; F41.8 Other specified anxiety disorders; I10 Essential (primary) hypertension; Z87.442 Personal history of urinary calculi; F17.210 Nicotine dependence, cigarettes, uncomplicated
CPT/HCPCS: 99202; G0463; U0003

== ENCOUNTER → 2021-03-30 09:15 | Outpatient (CLI) | payer OTHER, SELFPAY ==
[2021-03-30 09:58] LABS: Basophils # 0.1 K/mm3 (0-0.2); Eosinophils # 0.3 K/mm3 (0.0-0.4); Eosinophils % 3.1 % (0.1-12.0); Hematocrit 46.3 % (37.0-47.0); Hemoglobin 15.5 g/dL (12.2-16.2); Lymphocytes # 2.4 K/mm3 (0.7-4.5); Lymphocytes % 27.1 % (10-50); Mean Corpuscular HGB Conc 33.5 g/dL (31.8-35.4); Mean Corpuscular Hemoglobin 31.8 pg (27.0-31.2); Mean Corpuscular Volume 94.9 fl (81-99); Mean Platelet Volume 7.8 fl (7.4-10.4); Monocytes # 0.5 K/mm3 (0.1-1.0); Monocytes % 5.8 % (1.7-9.3); Neutrophils # 5.5 K/mm3 (1.8-7.8); Platelet Count 338 K/mm3 (142-424); Red Blood Count 4.88 M/mm3 (4.20-5.40); Red Cell Distribution Width 14.2 % (11.5-17.5); White Blood Count 8.7 K/mm3 (4.8-10.8)
[2021-03-30 10:37] LABS: Chloride 109 mmol/L (98-107); Potassium 4.2 mmoL/L (3.5-5.1); Sodium 140 mmol/L (136-145)
[2021-03-30 10:39] LABS: Alanine Aminotransferase 25 U/L (12-78); Alkaline Phosphatase 72 U/L (38-126); Aspartate Amino Transferase 27 U/L (14-36); Blood Urea Nitrogen 5 mg/dl (7-17); Estimated Glomerular Filt Rate 142 ml/min (>60); GFR (African American) 172 ML/MIN (>60)
[2021-03-30 10:40] LABS: Albumin Level 3.7 g/dl (3.5-5.0); Albumin/Globulin Ratio 1.6 (1.1-1.8); Anion Gap 11.2 mEq/L (5-15); Carbon Dioxide 24 mmol/L (22.0-30.0); Globulin 2.3 g/dL (1.3-3.2); Glucose 89 mg/dl (74-100); Iron 66 ug/dL (37-170)
[2021-03-30 10:44] LABS: Bilirubin,Total 0.1 mg/dl (0.2-1.3)
[2021-03-30 10:50] LABS: Total Iron Binding Capacity 373 ug/dL (265-497)
[2021-03-30 10:53] LABS: 25-OH Vitamin D, Total 47.5 ng/mL (30-100)
[2021-03-30 11:11] LABS: Thyroid Stimulating Hormone 3.38 uIU/mL (0.465-4.68)
[2021-03-30 11:15] LABS: Ferritin 26.7 ng/ml (6.24-137)
== END ==
PROVIDERS: PCP Physician Assistant; Visit Provider Physician Assistant
DX: R00.0 Tachycardia, unspecified (principal); E66.3 Overweight; Z68.31 Body mass index [BMI] 31.0-31.9, adult
CPT/HCPCS: 36415; 80053; 82306; 82728; 83540; 83550; 84443; 85025; 93225; 93226

== ENCOUNTER → 2021-04-13 13:26 | Outpatient (CLI) | payer OTHER, SELFPAY ==
--- NOTE | 2021-04-13 13:27 | CA_ITS ---
APPROVED REPORT EXAM: Comprehensive 2D, Doppler, and color-flow Echocardiogram Dispatcher Maintenance Service: Karrie Metz RVT Ht: 5 ft 8 in Wt: 204lbs BSA: 2.06 BP: 122/70 mmHg Indications: TACHYCARDIA,SMOKER,HTN 2D Dimensions LVOT 2.15 cm (M/F) 1.5-2.5 LA Volume 31.40 mL LA Volume Index 15.24 mL/m2 (M/F) 16-34 M-Mode Dimensions RVDd 3.11 cm (0.9-2.6) LA Diam 3.25 cm (1.9-4.0) LVDd 3.33 cm (3.5-5.7) Ao Diam 2.89 cm (2.0-3.7) LVDs 2.04 cm (3.5-5.7) IVSd 1.14 cm (0.6-1.1) PWd 1.07 cm (0.6-1.1) EF (Teich) 70.30% FS 38.70% EDV (Teich) 45.10 mL TAPSE 1.90 (<1.7) ESV (Teich) 13.40 mL LV Diastology E Decel Time 150.00 (160-240 msec) E/A Ratio 0.7 MED E' 3.80 (< 7 cm/sec) E'/MED E' Ratio 17.50 (>14) LAT E' 15.40 (<10 cm/sec) E/LAT E' Ratio 4.32 (>14) Aortic Valve AO VTI 19.76 (18-25 cm) Mitral Valve MV E Max Russel. 66.00 (40-130 cm/s) MV A Velocity 98.00 (40-130 cm/s) E/A Ratio 0.68 MV Decel. Time 150.00 (160-240 ms) MV PHT 44.00 ms Pulmonary Valve PV Peak Velocity 118.00 (50-150 cm/s) Tricuspid Valve TR P. Velocity 146.00 cm/s RAP Estimate 10.00 mmHg RVSP 18.50 mmHg Left Ventricle Left atrium is upper limit of normal size, left ventricle is normal size, hyperdynamic left ventricular systolic function, visually estimated ejection fraction 55 to 60% with no obvious regional wall motion abnormality. Diastolic parameters are inconclusive. Right Ventricle Right atrium and right ventricle qualitatively normal size and contractility. Aortic Valve Aortic valve is grossly normal, there is no aortic stenosis or aortic insufficiency. Mitral Valve Mitral valve grossly normal, there is trace mitral regurgitation. Tricuspid Valve Tricuspid valve grossly normal, there is trace tricuspid regurgitation, tricuspid regurgitation jet velocity is inadequate for calculation of the right ventricular systolic pressure. Pulmonic Valve Pulmonic valve is poorly visualized. Great Vessels Aortic root is normal size. Inferior vena cava is normal size with normal inspiratory collapse. Pericardium No significant pericardial effusion noted. Conclusion 1. Technically difficult study, patient was tachycardic throughout the study, normal left ventricular size, hyperdynamic left ventricular systolic function, visually estimated ejection fraction 55 to 60% with no regional wall motion abnormality, diastolic parameters are inconclusive. 2. Trace mitral and tricuspid regurgitation. 3. No significant pericardial effusion noted. 4. Inferior vena cava is normal size with normal inspiratory collapse. Electronically signed by : Kwabena Rider MD 04/14/2021 06:36:42
== END ==
PROVIDERS: PCP Physician Assistant; Visit Provider Physician Assistant
DX: R00.0 Tachycardia, unspecified (principal)
CPT/HCPCS: 93306

== ENCOUNTER → 2021-06-10 18:24 | Outpatient (CLI) | payer OTHER, SELFPAY ==
[2021-06-12 22:07] LABS: Neisseria gonorrhoeae, NAA Negative (Negative)
== END ==
PROVIDERS: Visit Provider Nurse Practitioner Family
DX: L29.2 Pruritus vulvae (principal); R20.8 Other disturbances of skin sensation; N76.0 Acute vaginitis
CPT/HCPCS: 87491; 87591

== ENCOUNTER → 2021-07-02 13:07 | Outpatient (CLI) | payer OTHER, SELFPAY | PROVIDERS: Visit Provider Nurse Practitioner | DX: Z20.822 Contact with and (suspected) exposure to COVID-19 (principal) | CPT/HCPCS: C9803; U0003; U0005 ==

== ENCOUNTER → 2021-09-15 16:25 | Outpatient (CLI) | payer OTHER, SELFPAY ==
[2021-09-15 17:36] LABS: Basophils # 0.1 K/mm3 (0-0.2); Basophils % 1.5 % (0.1-2.0); Eosinophils # 0.3 K/mm3 (0.0-0.4); Eosinophils % 3.5 % (0.1-12.0); Hematocrit 43.7 % (37.0-47.0); Hemoglobin 14.5 g/dL (12.2-16.2); Lymphocytes # 2.4 K/mm3 (0.7-4.5); Mean Corpuscular HGB Conc 33.1 g/dL (31.8-35.4); Mean Corpuscular Hemoglobin 31.7 pg (27.0-31.2); Mean Corpuscular Volume 95.7 fl (81-99); Mean Platelet Volume 8.3 fl (7.4-10.4); Monocytes # 0.5 K/mm3 (0.1-1.0); Monocytes % 5.9 % (1.7-9.3); Neutrophils # 4.6 K/mm3 (1.8-7.8); Neutrophils % 58.1 % (37.0-80.0); Platelet Count 352 K/mm3 (142-424); Red Blood Count 4.57 M/mm3 (4.20-5.40); Red Cell Distribution Width 13.5 % (11.5-17.5); White Blood Count 7.9 K/mm3 (4.8-10.8)
[2021-09-15 18:33] LABS: Alanine Aminotransferase 88 U/L (12-78); Albumin Level 4.2 g/dl (3.5-5.0); Albumin/Globulin Ratio 1.7 (1.1-1.8); Alkaline Phosphatase 69 U/L (38-126); Amylase 37 U/L (30-110); Anion Gap 10.8 mEq/L (5-15); Aspartate Amino Transferase 44 U/L (14-36); Bilirubin,Total 0.3 mg/dl (0.2-1.3); Blood Urea Nitrogen 9 mg/dl (7-17); Calcium 9.4 mg/dl (8.4-10.2); Carbon Dioxide 26 mmol/L (22.0-30.0); Chloride 108 mmol/L (98-107); Estimated Glomerular Filt Rate 114 ml/min (>60); GFR (African American) 138 ML/MIN (>60); Globulin 2.5 g/dL (1.3-3.2); Glucose 79 mg/dl (74-100); Lipase 58 U/L (23-300); Potassium 4.8 mmoL/L (3.5-5.1); Sodium 140 mmol/L (136-145); Total Protein,Serum 6.7 g/dl (6.3-8.2)
[2021-09-15 18:55] LABS: HCG,Quantitative < 2 mIU/ml (0-5.42)
== END ==
PROVIDERS: PCP Physician Assistant; Visit Provider Physician Assistant
DX: R10.13 Epigastric pain (principal); R11.2 Nausea with vomiting, unspecified
CPT/HCPCS: 36415; 80053; 82150; 83690; 84702; 85025

== ENCOUNTER → 2021-10-03 13:54 | Outpatient (CLI) | payer OTHER, SELFPAY | PROVIDERS: PCP Physician Assistant; Visit Provider Physician Assistant | DX: Z11.52 Encounter for screening for COVID-19 (principal) | CPT/HCPCS: C9803; U0003; U0005 ==

== ENCOUNTER 2021-10-06 09:12 | Day surgery (SDC) | payer OTHER, SELFPAY ==
[2021-10-05 09:05] VITALS: BMI 34.3
[2021-10-06 09:33] LABS: Urine Pregnancy, HCG Qual. Negative (Negative)
[2021-10-06 09:37] VITALS: BP 117/79; PULSE 83; RESP 16; TEMP 36.4; O2SAT 96
--- NOTE | 2021-10-06 09:38 | P.PN_ITS ---
[facility] Anest[facility] Check[facility] - Patient Identification Patient Identification: Arm Band - Structural Data Admitted From: Home Planned Operative Procedure/s: EGD Consent for Planned Operative Procedure(s) Verified: Yes - NPO Status Verified Time NPO: 00:00 - Airway Assessment C-Spine Mobility Assessed: Yes TMJ Mobility Assessed: Yes Dentition: Good Dentition - Neurological Assessment Level of Consciousness: Awake Hx Seizures: No Numbness or tingling in extremities: No - Anesthesia Plan Anesthesia Risk discussed: Yes Anesthesia Plan: Verified ASA Class: II Anesthesia Type: [facility] History I have reviewed the patient's past medical history: Yes Medical History: Reports:: Anxiety, Depression, Hypertension, Kidney Stones Denies:: Cancer, Diabetes Mellitus Type 1, Diabetes Mellitus Type 2, Internal Pacemaker, MRSA *Have you ever received a pneumonia vaccine?: No *Have you received a flu vaccine this season?: No Other Medical History: Reports: Other Anesthesia experience/problems:: None Laterality Cases: Bilateral: Myringotomy (Ear Tubes), Tonsillectomy Other Surgeries: Yes: Tubal Ligation, Other. No: Pacemaker Amputation: No Fractures: No - *Social History Last grade of school completed: High school graduate Smoking Status: Current every day smoker Tobacco Type: cigarettes # Packs/Day (cigarettes): 1 Alcohol Intake: current Alcohol Intake Frequency:: a few times a week Substance Use Type: marijuana *Occupational Status:: unemployed Housing: apartment Household Members: children *Travel in the last 8 weeks: None - Psychiatric History Pschychiatric History:: Reports:: Anxiety, Depression Family Hx:: Cancer
[2021-10-06 09:51] VITALS: O2SAT 97
--- NOTE | 2021-10-06 10:03 | [facility].SCOPE ---
- Procedure: Date: 10/06/21 Patient Date of :: 1985 Procedure Performed:: Esophagogastroduodenoscopy with biopsy Indications:: Melena Epigastric pain History of peptic ulcer disease Nausea/vomiting Performing Provider:: Joseph Olsno MD Referring Provider:: . Sedation:: Monitored anesthesia care Procedure:: After informed consent was obtained the patient was taken to the endoscopy suite. Sedation ensued after the patient was transferred to the left lateral decubitus position. Pulse, blood pressure, and oxygen saturation were monitored throughout the procedure. The endoscope was advanced beyond the duodenal bulb. Retroflexion within the gastric lumen was accomplished. The gastroscope was carefully removed and the patient was transferred to recovery in stable condition. Please see findings and specimens below for detail. Findings:: Gastroesophageal junction at 36 cm Sliding hiatal hernia Mild gastritis No obvious ulceration No sign of active or recent hemorrhage Specimens:: Antral biopsy Recommendations:: Follow-up pathology Consider UGI/SBFT followed by capsule endoscopy Consider gastric emptying scan Complications:: No immediate Estimated blood obtained (mL): 1
[2021-10-06 10:04] VITALS: BP 111/68; PULSE 110; RESP 16; TEMP 36.5; O2SAT 95
[2021-10-06 10:14] VITALS: BP 130/79; PULSE 83; RESP 16; O2SAT 97
[2021-10-06 10:24] VITALS: BP 126/76; PULSE 82; RESP 16; O2SAT 98
[2021-10-06 10:38] VITALS: BP 121/77; PULSE 80; RESP 16; TEMP 36.5; O2SAT 97
== END 2021-10-06 10:38 | disposition home or self-care (01) ==
LOC: OUTP 09:13
PROVIDERS: PCP Physician Assistant; Visit Provider Surgery
PROC: 0DJ08ZZ Inspection of Upper Intestinal Tract, Via Natural or Artificial Opening Endoscopic (ICD-10-PCS; CPT 43235; principal; 2021-10-06 11:30)
DX: K92.1 Melena (principal); Z87.11 Personal history of peptic ulcer disease; K29.70 Gastritis, unspecified, without bleeding; K44.9 Diaphragmatic hernia without obstruction or gangrene; R10.13 Epigastric pain; R11.2 Nausea with vomiting, unspecified; F41.9 Anxiety disorder, unspecified; F32.A Depression, unspecified; I10 Essential (primary) hypertension; Z72.0 Tobacco use; Z80.9 Family history of malignant neoplasm, unspecified; Z88.1 Allergy status to other antibiotic agents
CPT/HCPCS: 43239; 81025

== ENCOUNTER → 2021-12-16 14:23 | Outpatient (CLI) | payer OTHER, SELFPAY ==
[2021-12-16 13:45] LABS: Adenovirus,PCR Not Detected (NotDetected); Bordetella Pertussis Not Detected (NotDetected); Chlamydophila Pneumoniae, PCR Not Detected (NotDetected); Coronavirus 19, PCR Not Detected (NotDetected); Coronavirus 229E Not Detected (NotDetected); Coronavirus NL63 Not Detected (NotDetected); Coronavirus OC43 Not Detected (NotDetected); Coronovirus HKU1,PCR Not Detected (NotDetected); Human Metapneumovirus Not Detected (NotDetected); Influenza A, PCR Not Detected (NotDetected); Influenza AH1, 2009 Not Detected (NotDetected); Influenza AH1, PCR Not Detected (NotDetected); Influenza AH3,PCR Not Detected (NotDetected); Influenza B, PCR Not Detected (NotDetected); Mycoplasma Pneumoniae, PCR Not Detected (NotDetected); Parainfluenza 1, PCR Not Detected (NotDetected); Parainfluenza 2, PCR Not Detected (NotDetected); Parainfluenza 3, PCR Not Detected (NotDetected); Parainfluenza 4, PCR Not Detected (NotDetected); Respiratory Syncytial Virus Not Detected (NotDetected); Rhinovirus/Enterovirus Not Detected (NotDetected)
== END ==
PROVIDERS: PCP Nurse Practitioner Family; Visit Provider Nurse Practitioner Family
DX: Z20.822 Contact with and (suspected) exposure to COVID-19 (principal); R05.9 Cough, unspecified
CPT/HCPCS: 87581; 87632; 87798; C9803; U0003; U0005

== ENCOUNTER → 2022-05-04 15:59 | Outpatient (CLI) | payer OTHER, SELFPAY ==
--- NOTE | 2022-05-04 16:01 | CA_ITS ---
FINAL REPORT TECHNIQUE: Graded compression, spectral analysis and ultrasound images of the venous system of the right upper extremity were obtained. CLINICAL HISTORY: pain swelling picc line. Patient had PICC line placed today at outside hospital. She received antibiotics and heparin thru the PICC. She states it's been bleeding so came to one of our providers. Provider had dressing changed and ordered Ultrasound to rule out DVT. Patient in extreme pain proximal to PICC into the neck and collarbone area, FINDINGS: The jugular vein, subclavian vein, axillary vein, brachial vein, cephalic vein and basilic venous system are fully compressible and demonstrate no evidence of thrombosis. Multiple attempts to localize the intravascular portion of the PICC line were unsuccessful. IMPRESSION: No evidence of thrombosis of the venous system of the right upper extremity. Reviewed, Interpreted and Dictated by Jett Pimentel MD Transcribed by Kimberlee Owusu Authenticated and . [facility]
== END ==
PROVIDERS: PCP Physician Assistant; Visit Provider Physician Assistant
DX: T82.838A Hemorrhage due to vascular prosthetic devices, implants and grafts, initial encounter (principal)
CPT/HCPCS: 93971

== ENCOUNTER 2022-05-04 17:03 | Emergency (ER) | payer OTHER, SELFPAY ==
[2022-05-04 18:20] VITALS: BP 136/89; PULSE 104; RESP 16; TEMP 36.5; O2SAT 97; BMI 32.8
--- NOTE | 2022-05-04 18:20 | XR_ITS ---
PROCEDURE INFORMATION: Exam: XR Chest Exam date and time: 05/04/2022 6:31 PM Age: 36 years old Clinical indication: Other: Generalized pain; Patient HX: Patient had a picc line placed at another facility today. She is having arm, shoulder, and chest pain. Additional info: Picc line placement TECHNIQUE: Imaging protocol: Radiologic exam of the chest. Views: 2 views. COMPARISON: CR XR CHEST PORTABLE PICC PLAC 03/04/2020 12:28 PM FINDINGS: Tubes, catheters and devices: Right subclavian PICC line is present, distal tip overlying the approximate location of the proximal SVC. Lungs: The lungs appear clear. No focal areas of consolidation. Minor elevation the right hemidiaphragm is stable. Pleural spaces: No pleural effusions or appreciable adenopathy. Negative for pneumothorax. Heart/Mediastinum: Cardiac silhouette and pulmonary vasculature are within range of normal. Bones/joints: There is no evidence of acute fracture. IMPRESSION: Negative for an acute cardiopulmonary abnormality. Right subclavian PICC line distal tip overlying the approximate location of the proximal SVC.
--- NOTE | 2022-05-04 18:23 | PC.NURSE ---
pt triaged and back to lobby related no bed available at this time in ER, pt verbalized understanding. ER MD aware of pt presenting s/s and verbal orders were received from ER MD
--- NOTE | 2022-05-04 19:49 | PC.NURSE ---
shift change report given to coltrn
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
[2022-05-04 20:04] VITALS: BP 0/0; PULSE 0; RESP 0; TEMP -17.7; TEMP 0
== END 2022-05-04 20:23 | disposition left against medical advice (07) ==
PROVIDERS: Emergency Provider Emergency Medicine; PCP Physician Assistant
DX: M79.601 Pain in right arm (principal); Z53.21 Procedure and treatment not carried out due to patient leaving prior to being seen by health care provider
CPT/HCPCS: 71046; 99211

== ENCOUNTER → 2022-05-11 08:27 | Outpatient (CLI) | payer OTHER, SELFPAY ==
--- NOTE | 2022-05-11 08:27 | CT_ITS ---
FINAL REPORT TECHNIQUE: Axial images were obtained from the lung apex to the mid abdomen by computed tomography. Coronal reformatted images were obtained. This study was performed with techniques to keep radiation doses as low as reasonably achievable, (ALARA). Individualized dose reduction techniques using automated exposure control or adjustment of mA and/or kV according to the patient''s size were employed. CLINICAL HISTORY: right sided chest pain h/o abscess hysterectomy mar 16, hx abscesses since surgery COMPARISON: 04/14/2022 and 12/10/2021 FINDINGS: A right-sided PICC line is present. There is no axillary adenopathy. There is no hilar or mediastinal adenopathy. Heart size is normal. There is no pericardial or pleural effusion. Limited images of the upper abdomen are unremarkable. There is a stable 4 mm ground-glass nodule in the right upper lobe. IMPRESSION: Stable 4 mm ground-glass nodule in the right upper lobe. Reviewed, Interpreted and Dictated by Power Jonas III, MD Transcribed by Kimberlee Owusu Authenticated and [facility]
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
== END ==
PROVIDERS: PCP Physician Assistant; Visit Provider Physician Assistant
DX: R07.9 Chest pain, unspecified (principal); L02.91 Cutaneous abscess, unspecified
CPT/HCPCS: 71250; 74176

== ENCOUNTER → 2022-09-16 18:02 | Outpatient (CLI) | payer OTHER, SELFPAY ==
[2022-09-24 09:08] LABS: Adenovirus F 40/41, stool Not Detected (NotDetected); Astrovirus Not Detected (NotDetected); Campylobacter Not Detected (NotDetected); Cryptosporidium Not Detected (NotDetected); Cyclospora Cayetanesis Not Detected (NotDetected); Entamoeba histolytica Not Detected (NotDetected); Enteroaggregative E coli Not Detected (NotDetected); Enteropathogenic E coli Not Detected (NotDetected); Enterotoxigenic E coli Not Detected (NotDetected); Giardia lamblia Not Detected (NotDetected); Norovirus Not Detected (NotDetected); Plesimonas Shigalloides, PCR Not Detected (NotDetected); Rotavirus A Not Detected (NotDetected); Salmonella, PCR Not Detected (NotDetected); Sapovirus Not Detected (NotDetected); Shiga-like toxin E coli Not Detected (NotDetected); Shigella Enterovasive E coli Not Detected (NotDetected); Vibrio Cholerae Not Detected (NotDetected); Vibrio, PCR Not Detected (NotDetected)
[2022-09-24 13:12] LABS: Clostridium Difficile A/B, PCR Detected (NotDetected)
[2022-09-24 13:13] LABS: Yersinia Entercolitica, PCR Detected (NotDetected)
== END ==
PROVIDERS: PCP Nurse Practitioner Family; Visit Provider Nurse Practitioner Family
DX: M54.50 Low back pain, unspecified (principal); B96.1 Klebsiella pneumoniae [K. pneumoniae] as the cause of diseases classified elsewhere
CPT/HCPCS: 87086; 87088; 87186; 87507

== ENCOUNTER → 2022-09-19 10:03 | Outpatient (CLI) | payer OTHER, SELFPAY | LOC: LAB 10:20 → LAB.DROPOF 10:28 | PROVIDERS: PCP Physician Assistant; Visit Provider Nurse Practitioner Family | DX: M54.50 Low back pain, unspecified (principal) ==

== ENCOUNTER → 2022-09-23 10:39 | Outpatient (CLI) | payer OTHER, SELFPAY ==
--- NOTE | 2022-09-23 10:48 | US_ITS ---
FINAL REPORT CLINICAL HISTORY: .pelvic pain FINDINGS: Transvaginal sonographic images of the pelvis were obtained. The uterus is surgically absent. There is large postvoid residual of the bladder. The right ovary measures 3.5 x 2.8 x 2.5 cm. The left ovary measures 3.1 x 2.6 x 2.7 cm. Right ovarian cysts are identified measuring up to 2.2 cm. There is a left ovarian cyst measuring 1.7 cm. There is nonspecific complex free fluid, abscess is not excluded. IMPRESSION: Bilateral ovarian cysts. Complex free fluid, abscess is not excluded. If indicated, consider follow-up ultrasound or CT. Reviewed, Interpreted and Dictated by Power Jonas III, MD Transcribed by Alka Galvan Authenticated and [facility]
== END ==
PROVIDERS: PCP Physician Assistant; Visit Provider Nurse Practitioner Family
DX: N83.201 Unspecified ovarian cyst, right side (principal); N83.202 Unspecified ovarian cyst, left side
CPT/HCPCS: 76830

== ENCOUNTER → 2022-09-25 08:37 | Outpatient (CLI) | payer OTHER, SELFPAY ==
[2022-09-25 08:54] LABS: Basophils % 0.4 % (0.1-2.0); Eosinophils # 0.4 K/mm3 (0.0-0.4); Eosinophils % 4.1 % (0.1-12.0); Hematocrit 45.5 % (37.0-47.0); Hemoglobin 15.2 g/dL (12.2-16.2); Mean Corpuscular HGB Conc 33.3 g/dL (31.8-35.4); Mean Corpuscular Hemoglobin 32.1 pg (27.0-31.2); Mean Corpuscular Volume 96.4 fl (81-99); Mean Platelet Volume 7.5 fl (7.4-10.4); Monocytes # 0.4 K/mm3 (0.1-1.0); Monocytes % 3.9 % (1.7-9.3); Neutrophils # 6.5 K/mm3 (1.8-7.8); Neutrophils % 62.5 % (37.0-80.0); Platelet Count 312 K/mm3 (142-424); Red Blood Count 4.72 M/mm3 (4.20-5.40); Red Cell Distribution Width 14.1 % (11.5-17.5); White Blood Count 10.4 K/mm3 (4.8-10.8)
[2022-09-25 09:12] LABS: Hemoglobin A1C 5.4 % (4.0-6.0)
[2022-09-25 09:21] LABS: Alanine Aminotransferase 39 U/L (12-78); Albumin Level 4.1 g/dl (3.5-5.0); Albumin/Globulin Ratio 1.7 (1.1-1.8); Alkaline Phosphatase 71 U/L (38-126); Anion Gap 10.8 mEq/L (5-15); Aspartate Amino Transferase 34 U/L (14-36); Bilirubin,Total 0.4 mg/dl (0.2-1.3); Blood Urea Nitrogen 12 mg/dl (7-17); Calcium 8.8 mg/dl (8.4-10.2); Carbon Dioxide 26 mmol/L (22.0-30.0); Chloride 105 mmol/L (98-107); Chol/HDL Ratio 3.4 (1-3.5); Cholesterol 227 mg/dl (140-200); Estimated Glomerular Filt Rate 114 ml/min (>60); GFR (African American) 138 ML/MIN (>60); Globulin 2.4 g/dL (1.3-3.2); Glucose 93 mg/dl (74-100); HDL Cholesterol 66 mg/dl (40-60); Potassium 4.8 mmoL/L (3.5-5.1); Sodium 137 mmol/L (136-145); Total Protein,Serum 6.5 g/dl (6.3-8.2); Triglycerides 189 mg/dl (30-150); VLDL Cholesterol 38 mg/dL (0-40)
[2022-09-25 09:32] LABS: Direct LDL Cholesterol 113.26 mg/dL (100-129)
[2022-09-25 09:36] LABS: 25-OH Vitamin D, Total 31.2 ng/mL (30-100)
[2022-09-25 09:50] LABS: Thyroid Stimulating Hormone 2.43 uIU/mL (0.465-4.68)
== END ==
PROVIDERS: PCP Nurse Practitioner Family; Visit Provider Nurse Practitioner Family
DX: R53.83 Other fatigue (principal); E11.9 Type 2 diabetes mellitus without complications; E55.9 Vitamin D deficiency, unspecified
CPT/HCPCS: 36415; 80053; 80061; 82306; 83036; 84443; 85025

== ENCOUNTER → 2022-10-05 15:33 | Outpatient (CLI) | payer OTHER, SELFPAY ==
--- NOTE | 2022-10-05 15:33 | US_ITS ---
FINAL REPORT CLINICAL HISTORY: N83.201 - Unspecified ovarian cyst, right side COMPARISON: 09/23/2022 FINDINGS: Sonographic images of the pelvis were obtained. The uterus is surgically absent. There are small anechoic structures in the right ovary which are favored to represent small follicles. Previously noted 2.2 cm complex cyst is a not seen on today's exam. Within the left ovary, there is a 2.0 cm benign-appearing cyst which appears similar to the prior exam. There is no significant free fluid in the pelvis. IMPRESSION: Stable left ovarian cyst. Resolution of previously noted complex right ovarian cyst. Reviewed, Interpreted and Dictated by Jaun Mg MD Transcribed by Alisson Fox Authenticated and [facility]
== END ==
PROVIDERS: PCP Nurse Practitioner Family; Visit Provider Nurse Practitioner Family
DX: N83.201 Unspecified ovarian cyst, right side (principal); N83.202 Unspecified ovarian cyst, left side
CPT/HCPCS: 76830

== ENCOUNTER 2022-10-26 20:12 | Emergency (ER) | payer OTHER, SELFPAY ==
[2022-10-26 20:13] VITALS: BP 144/93; PULSE 120; RESP 17; TEMP 37.3; O2SAT 98; BMI 32.8
[2022-10-26 20:14] VITALS: BMI 32.8
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
--- NOTE | 2022-10-26 20:34 | PC.NURSE ---
Dr. Cai s/w MISTIAD
[2022-10-26 20:35] LABS: Basophils # 0.1 K/mm3 (0-0.2); Basophils % 0.8 % (0.1-2.0); Eosinophils # 0.3 K/mm3 (0.0-0.4); Eosinophils % 2.9 % (0.1-12.0); Hemoglobin 14.2 g/dL (12.2-16.2); Lymphocytes # 2.3 K/mm3 (0.7-4.5); Lymphocytes % 25.2 % (10-50); Mean Corpuscular HGB Conc 33.8 g/dL (31.8-35.4); Mean Corpuscular Volume 94.8 fl (81-99); Mean Platelet Volume 7.2 fl (7.4-10.4); Monocytes # 0.4 K/mm3 (0.1-1.0); Monocytes % 4.3 % (1.7-9.3); Neutrophils % 66.8 % (37.0-80.0); Platelet Count 346 K/mm3 (142-424); Red Blood Count 4.43 M/mm3 (4.20-5.40); Red Cell Distribution Width 14.1 % (11.5-17.5)
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
[2022-10-26 20:46] LABS: Chloride 101 mmol/L (98-107)
[2022-10-26 20:47] LABS: Potassium 3.2 mmoL/L (3.5-5.1); Sodium 141 mmol/L (136-145)
[2022-10-26 20:50] LABS: Alanine Aminotransferase 42 U/L (12-78); Albumin Level 4.8 g/dl (3.5-5.0); Albumin/Globulin Ratio 1.7 (1.1-1.8); Alkaline Phosphatase 58 U/L (38-126); Anion Gap 16.2 mEq/L (5-15); Aspartate Amino Transferase 50 U/L (14-36); Bilirubin,Total 0.5 mg/dl (0.2-1.3); Blood Urea Nitrogen 7 mg/dl (7-17); Calcium 9.6 mg/dl (8.4-10.2); Carbon Dioxide 27 mmol/L (22.0-30.0); Creatinine Clearance Estimated 173 mL/min (50-200); Estimated Glomerular Filt Rate 95 ml/min (>60); GFR (African American) 115 ML/MIN (>60); Globulin 2.9 g/dL (1.3-3.2); Glucose 96 mg/dl (74-100); Total Protein,Serum 7.7 g/dl (6.3-8.2)
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
[2022-10-26 21:55] VITALS: BP 144/93; PULSE 79; RESP 19; TEMP 36.8; O2SAT 98
== END 2022-10-26 22:14 | disposition home or self-care (01) ==
PROVIDERS: Emergency Provider Emergency Medicine; PCP Emergency Medicine
DX: S06.0XAA Concussion with loss of consciousness status unknown, initial encounter (principal); S16.1XXA Strain of muscle, fascia and tendon at neck level, initial encounter; M25.521 Pain in right elbow; V47.0XXA Car driver injured in collision with fixed or stationary object in nontraffic accident, initial encounter; F17.210 Nicotine dependence, cigarettes, uncomplicated
CPT/HCPCS: 70450; 71045; 72125; 72170; 73080; 73090; 80053; 85025; 96361; 96374; 96375; 99284; 99285; J2405

== ENCOUNTER → 2022-10-28 11:02 | Outpatient (CLI) | payer OTHER, SELFPAY ==
--- NOTE | 2022-10-28 11:07 | XR_ITS ---
FINAL REPORT CLINICAL HISTORY: right shoulder pain COMPARISON: None FINDINGS: RIGHT SHOULDER Four views demonstrate no acute fracture or dislocation. The joint spaces appear normal. The visualized bony structures are well aligned. No soft tissue abnormality is seen. IMPRESSION: No acute bony abnormality. Reviewed, Interpreted and Dictated by Power Jonas III, MD Transcribed by Adamaris Cole Authenticated and [facility]
== END ==
PROVIDERS: PCP Physician Assistant; Visit Provider Physician Assistant
DX: M25.511 Pain in right shoulder (principal)
CPT/HCPCS: 73030

== ENCOUNTER → 2022-12-30 11:24 | Outpatient (CLI) | payer OTHER, SELFPAY ==
--- NOTE | 2022-12-30 11:30 | XR_ITS ---
FINAL REPORT CLINICAL HISTORY: left foot pain COMPARISON: None FINDINGS: Three views of the left foot show no evidence of acute displaced fracture or dislocation of the visualized bony architecture. The joint spaces appear normal. IMPRESSION: Unremarkable exam. Reviewed, Interpreted and Dictated by Jett Pimetnel MD Transcribed by Adamaris Cole Authenticated and [facility]
--- NOTE | 2022-12-30 11:30 | XR_ITS ---
FINAL REPORT CLINICAL HISTORY: left ankle pain COMPARISON: None FINDINGS: Three views of the left ankle show no evidence of acute displaced fracture or dislocation of the visualized bony architecture. The joint spaces appear normal. IMPRESSION: Unremarkable exam. Reviewed, Interpreted and Dictated by Jett Pimentel MD Transcribed by Adamaris Cole Authenticated and [facility]
== END ==
PROVIDERS: PCP Physician Assistant; Visit Provider Physician Assistant
DX: M25.572 Pain in left ankle and joints of left foot (principal); M79.672 Pain in left foot
CPT/HCPCS: 73610; 73630

== ENCOUNTER 2022-12-30 12:18 | Outpatient (RCR) | payer OTHER, SELFPAY | END 2022-12-30 13:30 | disposition home or self-care (01) | LOC: PT 12:18 | PROVIDERS: Visit Provider Physician Assistant | DX: S93.402A Sprain of unspecified ligament of left ankle, initial encounter (principal) | CPT/HCPCS: 97760 ==

== ENCOUNTER → 2023-01-31 23:41 | Outpatient (CLI) | payer OTHER, SELFPAY | PROVIDERS: PCP Student in an Organized Health Care Education/Training Program; Visit Provider Student in an Organized Health Care Education/Training Program | DX: R11.2 Nausea with vomiting, unspecified (principal); R10.11 Right upper quadrant pain; J02.9 Acute pharyngitis, unspecified | CPT/HCPCS: 87086; 87635 ==

== ENCOUNTER → 2023-02-08 08:55 | Outpatient (CLI) | payer OTHER, SELFPAY ==
--- NOTE | 2023-02-08 09:04 | US_ITS ---
FINAL REPORT CLINICAL HISTORY: ruq pain COMPARISON: None FINDINGS: Sonographic images of the right upper quadrant were obtained. The pancreas is partially obscured. There is mild fatty infiltration of the liver. The gallbladder appears normal without evidence of gallstones.There is no evidence of biliary ductal dilatation.The common duct measures 3 mm. Limited images of the right kidney are unremarkable. IMPRESSION: Mild fatty infiltration of the liver. Reviewed, Interpreted and Dictated by Power Jonas III, MD Transcribed by Vivi Arvizu Authenticated and . [facility]
== END ==
PROVIDERS: PCP Student in an Organized Health Care Education/Training Program; Visit Provider Student in an Organized Health Care Education/Training Program
DX: R10.11 Right upper quadrant pain (principal)
CPT/HCPCS: 76705

== ENCOUNTER → 2023-02-22 09:41 | Outpatient (CLI) | payer OTHER, SELFPAY ==
--- NOTE | 2023-02-22 09:44 | XR_ITS ---
FINAL REPORT CLINICAL HISTORY: abd pain for 2 weeks. surgery in mar to remove abscess in intestines FINDINGS: Flat and upright views of the abdomen demonstrate a nonobstructive bowel gas pattern. There is no free air. There is a 1.3 cm stone in the lower pole of the left kidney. IMPRESSION: Left renal stone. Reviewed, Interpreted and Dictated by Jaun Mg MD Transcribed by Brigido Nath Authenticated and [facility]
[2023-02-22 10:08] LABS: Microscopic, Urine URINE MICROSCOPIC (MICROSCOPIC)
[2023-02-22 10:34] LABS: Appearance,Urine CLEAR (Clear); Bilirubin,Urine Negative (Negative); Blood, Urine Negative (Negative); Color,Urine YELLOW (Yellow); Glucose,Urine (UA) Negative (Negative); Ketones,Urine Negative (Negative); Leukocyte Esterase,Urine Negative (Negative); Nitrate,Urine Negative (Negative); PH,Urine 7.5 (5.0-8.5); Protein,Urine TRACE (Negative)
[2023-02-22 10:39] LABS: Basophils % 0.5 % (0.1-2.0); Eosinophils # 0.1 K/mm3 (0.0-0.4); Hematocrit 49.9 % (37.0-47.0); Hemoglobin 16.1 g/dL (12.2-16.2); Lymphocytes # 2.1 K/mm3 (0.7-4.5); Lymphocytes % 26.7 % (10-50); Mean Corpuscular HGB Conc 32.2 g/dL (31.8-35.4); Mean Corpuscular Volume 96.1 fl (81-99); Mean Platelet Volume 7.9 fl (7.4-10.4); Monocytes # 0.4 K/mm3 (0.1-1.0); Monocytes % 5.1 % (1.7-9.3); Neutrophils # 5.3 K/mm3 (1.8-7.8); Neutrophils % 66.6 % (37.0-80.0); Platelet Count 329 K/mm3 (142-424); Red Blood Count 5.19 M/mm3 (4.20-5.40); Red Cell Distribution Width 13.2 % (11.5-17.5)
[2023-02-22 11:03] LABS: Alanine Aminotransferase 30 U/L (12-78); Albumin Level 4.9 g/dl (3.5-5.0); Albumin/Globulin Ratio 1.6 (1.1-1.8); Alkaline Phosphatase 69 U/L (38-126); Amylase 33 U/L (30-110); Anion Gap 14.3 mEq/L (5-15); Aspartate Amino Transferase 28 U/L (14-36); Bilirubin,Total 0.7 mg/dl (0.2-1.3); Blood Urea Nitrogen 7 mg/dl (7-17); Calcium 9.3 mg/dl (8.4-10.2); Carbon Dioxide 24 mmol/L (22.0-30.0); Chloride 104 mmol/L (98-107); Chol/HDL Ratio 3.5 (1-3.5); Cholesterol 214 mg/dl (140-200); Estimated Glomerular Filt Rate 114 ml/min (>60); GFR (African American) 138 ML/MIN (>60); Glucose 106 mg/dl (74-100); HDL Cholesterol 62 mg/dl (40-60); Potassium 4.3 mmoL/L (3.5-5.1); Sodium 138 mmol/L (136-145); Total Protein,Serum 7.9 g/dl (6.3-8.2); Triglycerides 177 mg/dl (30-150); VLDL Cholesterol 35 mg/dL (0-40)
[2023-02-22 11:05] LABS: Bacteria,Urine 1+ /lpf
[2023-02-22 11:06] LABS: Amorphous Sediment,Urine 1+ /lpf
[2023-02-22 11:14] LABS: Direct LDL Cholesterol 101.68 mg/dL (100-129)
[2023-02-22 11:34] LABS: Erythrocyte Sedimentation Rate 36 mm/hr (0-20)
[2023-02-23 07:00] LABS: HBsAg Screen Negative (Negative); HCV Ab Non Reactive (Non Reactive); Hep A Ab, IGM Negative (Negative); Hep B Core Ab, IgM Negative (Negative)
[2023-02-23 12:48] LABS: C-Reactive Protein 1.6 mg/L (0-4)
[2023-02-23 13:45] LABS: Rapid Plasma Reagin Ab Titer Non Reactive titer (NonRea<1:1)
== END ==
LOC: RAD 09:42
PROVIDERS: PCP Physician Assistant; Visit Provider Nurse Practitioner Family
DX: R10.11 Right upper quadrant pain (principal); R11.2 Nausea with vomiting, unspecified; R19.7 Diarrhea, unspecified; K76.0 Fatty (change of) liver, not elsewhere classified
CPT/HCPCS: 36415; 74019; 80053; 80061; 80074; 81001; 82150; 85025; 85651; 86140; 86593; 87086

== ENCOUNTER → 2023-04-05 10:27 | Outpatient (CLI) | payer OTHER, SELFPAY ==
--- NOTE | 2023-04-05 10:30 | XR_ITS ---
FINAL REPORT CLINICAL HISTORY: Chest pain, SOA FINDINGS: Two views of the chest were obtained. The heart size and pulmonary vascularity are within normal limits. The mediastinum is normal. No acute pulmonary abnormality is identified. There is no pneumothorax. The bony thorax is intact. IMPRESSION: No active cardiopulmonary disease. Reviewed, Interpreted and Dictated by Power Jonas III, MD Transcribed by Alka Galvan Authenticated and [facility]
== END ==
PROVIDERS: PCP Physician Assistant; Visit Provider Nurse Practitioner Family
DX: R06.02 Shortness of breath (principal); R07.89 Other chest pain
CPT/HCPCS: 71046

== ENCOUNTER → 2023-04-05 14:35 | Outpatient (CLI) | payer OTHER, SELFPAY ==
[2023-04-05 10:24] LABS: Microscopic, Urine URINE MICROSCOPIC (MICROSCOPIC)
[2023-04-05 10:32] LABS: Basophils # 0.1 K/mm3 (0-0.2); Basophils % 0.5 % (0.1-2.0); Eosinophils # 0.2 K/mm3 (0.0-0.4); Eosinophils % 1.4 % (0.1-12.0); Hematocrit 49.4 % (37.0-47.0); Lymphocytes % 24.4 % (10-50); Mean Corpuscular HGB Conc 34.4 g/dL (31.8-35.4); Mean Corpuscular Hemoglobin 32.6 pg (27.0-31.2); Mean Corpuscular Volume 94.8 fl (81-99); Mean Platelet Volume 7.5 fl (7.4-10.4); Monocytes # 0.5 K/mm3 (0.1-1.0); Monocytes % 3.9 % (1.7-9.3); Neutrophils # 8.5 K/mm3 (1.8-7.8); Neutrophils % 69.9 % (37.0-80.0); Platelet Count 346 K/mm3 (142-424); Red Blood Count 5.21 M/mm3 (4.20-5.40); Red Cell Distribution Width 13.2 % (11.5-17.5); White Blood Count 12.1 K/mm3 (4.8-10.8)
[2023-04-05 10:44] LABS: Chloride 105 mmol/L (98-107); Sodium 140 mmol/L (136-145)
[2023-04-05 10:45] LABS: Potassium 4.5 mmoL/L (3.5-5.1)
[2023-04-05 10:47] LABS: Alanine Aminotransferase 40 U/L (12-78); Albumin Level 5.5 g/dl (3.5-5.0); Albumin/Globulin Ratio 1.7 (1.1-1.8); Alkaline Phosphatase 64 U/L (38-126); Amylase 31 U/L (30-110); Anion Gap 15.5 mEq/L (5-15); Aspartate Amino Transferase 34 U/L (14-36); Bilirubin,Total 0.6 mg/dl (0.2-1.3); Blood Urea Nitrogen 11 mg/dl (7-17); Calcium 9.8 mg/dl (8.4-10.2); Carbon Dioxide 24 mmol/L (22.0-30.0); Estimated Glomerular Filt Rate 95 ml/min (>60); GFR (African American) 115 ML/MIN (>60); Globulin 3.2 g/dL (1.3-3.2); Glucose 99 mg/dl (74-100); Lipase 42 U/L (23-300); Magnesium 1.7 mg/dl (1.6-2.3); Total Protein,Serum 8.7 g/dl (6.3-8.2)
[2023-04-05 10:48] LABS: Appearance,Urine CLEAR (Clear); Bilirubin,Urine Negative (Negative); Blood, Urine Negative (Negative); Color,Urine YELLOW (Yellow); Glucose,Urine (UA) Negative (Negative); Ketones,Urine Negative (Negative); Leukocyte Esterase,Urine Negative (Negative); Nitrate,Urine Negative (Negative); Protein,Urine 1+ (Negative); Specific Gravity, Urine >= 1.030 (1.005-1.030); Urobilinogen,Urine 0.2 EU/dl (0.2)
[2023-04-05 10:55] LABS: WBC,Urine Occasional #/hpf (0-3)
[2023-04-05 10:56] LABS: Bacteria,Urine Trace /lpf; Mucus,Urine Trace /lpf; Squamous Epithelial Cell,Urine Occasional #/hpf (0-5)
[2023-04-05 11:18] LABS: Thyroid Stimulating Hormone 4.13 uIU/mL (0.465-4.68)
[2023-04-05 11:44] LABS: Troponin I < 0.01 ng/ml (0.00-0.034)
== END ==
PROVIDERS: PCP Nurse Practitioner Family; Visit Provider Nurse Practitioner Family
DX: R06.02 Shortness of breath (principal); R07.89 Other chest pain; R11.10 Vomiting, unspecified; R10.11 Right upper quadrant pain; D72.829 Elevated white blood cell count, unspecified
CPT/HCPCS: 80053; 81001; 82150; 83690; 83735; 84443; 84484; 85025

== ENCOUNTER → 2023-04-21 08:32 | Outpatient (CLI) | payer OTHER, SELFPAY ==
--- NOTE | 2023-04-21 08:33 | CT_ITS ---
FINAL REPORT TECHNIQUE: Axial CT images of the abdomen were obtained with IV contrast only. Coronal and sagittal reformatted images were also obtained. This study was performed with techniques to keep radiation doses as low as reasonably achievable (ALARA). Individualized dose reduction techniques using automated exposure control or adjustment of mA and/or kV according to the patient's size were employed. CLINICAL HISTORY: RUQ abd pain, vomiting, elevated WBC count COMPARISON: 05/11/2022 FINDINGS: The lung bases are clear. The liver reveals mild fatty infiltration, without evidence of mass. The gallbladder appears normal without evidence of gallstones. There is no evidence of biliary ductal dilatation. The pancreas appears normal. The spleen size is within normal limits. There is a 1.5 cm nonobstructing renal stone present in the left kidney, lower pole, stable since the prior CT. There is no evidence of adenopathy. No abnormal fluid collection is seen. No localized inflammatory processes identified. The appendix is unremarkable in appearance. IMPRESSION: No mass or localized inflammatory process identified. 1.5 cm nonobstructing renal stone lower pole left kidney, stable since prior CT of 2021. Reviewed, Interpreted and Dictated by Jaun Mg MD Transcribed by Vivi Arvizu Authenticated and . [facility]
== END ==
PROVIDERS: PCP Nurse Practitioner Family; Visit Provider Nurse Practitioner Family
DX: D72.829 Elevated white blood cell count, unspecified (principal); R10.11 Right upper quadrant pain; R11.10 Vomiting, unspecified
CPT/HCPCS: 74160; Q9967

== ENCOUNTER 2023-06-02 22:22 | Emergency (ER) | payer OTHER, SELFPAY ==
[2023-06-02 22:24] VITALS: BP 132/99; PULSE 115; RESP 18; TEMP 36.8; O2SAT 98; BMI 30.4
[2023-06-02 22:30] VITALS: BP 132/99; PULSE 113; O2SAT 98
--- NOTE | 2023-06-02 22:50 | ED_ITS ---
Discharge Plan Disposition Patient Disposition: Home, Self-Care Condition: Good Prescriptions Prescriptions: New lidocaine [Lidoderm] 5 % adhesive patch,medicated 1 patch topical DAILY Qty: 15 0RF Rx Instructions: leave on most painful area for up to 12 hrs methocarbamol 750 mg tablet 750 mg PO Q8H PRN (Reason: pain) Qty: 20 0RF No Action ondansetron 4 mg tablet,disintegrating 4 mg PO Q8H PRN (Reason: nausea and vomiting) Qty: 30 0RF omeprazole 20 mg capsule,delayed release(DR/EC) 20 mg PO DAILY Qty: 30 2RF Referrals Follow up/Referrals: Power Cohen MD [Staff Physician] - See instructions Kena Lynne APRN [Primary Care Provider] - See instructions Activity Restrictions/Add. Instructions Additional Instructions/Restrictions: You were evaluated in the emergency department today. Please follow-up with general surgery for further evaluation and management. I recommend follow-up with your primary care provider as well. As an outpatient, providers can do more testing than we can do in the emergency department, such as MRI and other testing as indicated. Return to the emergency department for new or worsening symptoms. 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 Clinical Impressions Clinical Impression: Postprandial RUQ pain, Chronic right flank pain Instructions Patient Instructions: DI for Low Back Pain Discharge ED Provider: Anjali Andrews General Adult HPI <J Faisal Ivey MD - Last Filed: 06/02/23 22:55> General Chief complaint: Back Pain/Injury Stated complaint: RT side abd pain, SOA Time Seen by Provider: 06/02/23 22:39 Mode of Arrival: Ambulatory Source of Information: Patient Limitations: No Limitations Description of Symptoms (Recalled from ER Triage Doc. by RN): pt reports increase in upper right side pain that radiates back around to spine after a coughing spell. reports having this pain for awhile but worse since coughing s melinda a couple hours ago, reports taking tylenol and motrin and no help. reports it as a burning pain. History of Present Illness HPI narrative: Patient is a 37-year-old female who presents today with chronic right flank pain. This has been ongoing for 3 to 4 months she has had multiple CT scans with contrast including here and at [facility] without any abnormalities noted to explain her symptoms. Of note she has been diagnosed with a 1.5 intrarenal stone on the left side but no symptoms on the right. She also had a right upper quadrant ultrasound done in February that showed fatty liver but no other abnormality specifically no evidence of stone. Patient states that her symptoms are postprandial in nature. Looking on the right side of the right upper quadrant radiating to the right flank area. Denies any hematuria frequency urgency dysuria. Related Data Previous Rx's Medication Instructions Recorded omeprazole 20 mg capsule,delayed 20 mg PO DAILY #30 caps 01/31/23 release ondansetron 4 mg disintegrating 4 mg PO Q8H PRN nausea and 04/05/23 tablet vomiting #30 tabs lidocaine 5 % topical patch 1 patch topical DAILY #15 ea 06/03/23 (Lidoderm) methocarbamol 750 mg tablet 750 mg PO Q8H PRN pain #20 tabs 06/03/23 Allergies Allergy/AdvReac Type Severity Reaction Status Date / Time amoxicillin Allergy Mild Rash Verified 04/05/23 09:21 [facility] <Tom Ivey MD - Last Filed: 06/02/23 22:55> [facility] Disclaimer: The information contained in this section may have been updated after the patient was seen, as this information can be updated by other users. Medical History Acute lumbar myofascial strain Alcoholism Anxiety Anxiety and depression Attention deficit hyperactivity disorder (ADHD) Bipolar depression Chest pain Depression Diarrhea Insomnia OCD (obsessive compulsive disorder) Restless leg syndrome Right sided sciatica UTI (urinary tract infection), uncomplicated Vision loss of right eye Vitamin D deficiency (~06/2017) Surgical History No significant past surgical history Family History Family/Other No significant family history Social History Smoking Status: Current every day smoker tobacco type: cigarettes packs per day: 1 second hand exposure: No alcohol intake: current substance use type: marijuana current occupational status: unemployed Travel in the last 8 weeks: None household members: children housing: apartment number of children: 2 current occupation: [employer] current occupational exposures/hazards: No caffeine: Yes <Tom Ivey MD - Last Filed: 06/02/23 22:55> ROS Obtained: Yes All systems reviewed & no additional complaints except as documented Physical Exam <Tom Ivey MD - Last Filed: 06/02/23 22:55> General General appearance: alert and anxious (Crying) Respiratory Respiratory exam: Present normal lung sounds bilaterally and respiratory distress Cardiovascular Cardiovascular exam: Present regular rate; Absent tachycardia Abdominal Exam Abdominal exam: Present soft; Absent distention, tenderness or guarding Back Exam Back exam: Absent CVA tenderness (R) or CVA tenderness (L) Neurological Exam Neurological exam: Present alert and oriented X3 Medical Decision Making <Tom Ivey MD - Last Filed: 06/02/23 22:55> Louie Inquiry Pt receiving controlled substance: No Vital Signs: 06/02/23 22:24 06/02/23 22:30 06/02/23 23:00 Temperature 98.3 F Temperature Source Oral Pulse Rate 113 H 98 H Pulse Rate [Right] 115 H Respiratory Rate 18 Blood Pressure 132/99 H 123/77 Blood Pressure [Right Arm] 132/99 H Blood Pressure Mean [Right Arm] 110 Blood Pressure Source [Right Arm] Automatic Cuff Blood Pressure Position [Right Arm] Sitting 02 Sat by Pulse Oximetry 98 98 96 Oxygen Delivery Method Room Air 06/02/23 23:30 06/03/23 00:16 Temperature 97.8 F Temperature Source Pulse Rate 98 H 99 H Pulse Rate [Right] Respiratory Rate 15 Blood Pressure 115/76 129/86 Blood Pressure [Right Arm] Blood Pressure Mean [Right Arm] Blood Pressure Source [Right Arm] Blood Pressure Position [Right Arm] 02 Sat by Pulse Oximetry 94 L Oxygen Delivery Method Lab Data Lab Results 06/02/23 22:25: WBC 10.1, RBC 4.66, Hgb 15.1, Hct 43.7, MCV 93.8, MCH 32.4 H, MCHC 34.6, RDW 13.5, Plt Count 326, MPV 7.4, Neut % (Auto) 83.2 H, Lymph % (Auto) 11.5, [place] % (Auto) 3.3, Eos % (Auto) 1.5, Baso % (Auto) 0.4, Neut # (Auto) 8.4 H, Lymph # (Auto) 1.2, [place] # (Auto) 0.3, Eos # (Auto) 0.2, Baso # (Auto) 0.0, Sodium 139, Potassium 3.8, Chloride 105, Carbon Dioxide 23, Anion Gap 14.8, BUN 8, Creatinine 0.80, Estimated Creat Clear 141, Estimated GFR 82, Est GFR ( Amer) 99, Glucose 120 H, Calcium 9.4, Total Bilirubin 0.6, AST 34, ALT 35, Alkaline Phosphatase 69, Total Protein 7.7, Albumin 4.7, Globulin 3.0, Albumin/Globulin Ratio 1.6, Lipase 48, Urine Color Yellow, Urine Appearance Clear, Urine pH 6.5, Ur Specific [place] 1.025, Urine Protein Negative, Urine Glucose (UA) Negative, Urine Ketones Negative, Urine Blood Negative, Urine Nitrate Negative, Urine Bilirubin Negative, Urine Urobilinogen 0.2, Ur Leukocyte Esterase Negative, Urine RBC None, Urine WBC None, Ur Squamous Epith Cells Occasional, Urine Bacteria None 06/02/23 22:25 06/02/23 22:25 Orders (Tests/Meds): ED MEDICATIONS Discontinued Medications Generic Name Dose Route Start Last Admin Trade Name Freq PRN Reason Stop Dose Admin Belladonna Alkaloids 60 ml 06/02/23 22:49 06/02/23 23:17 Belladonna Alkaloids 60 Ml Ml PO 06/02/23 22:50 60 ml ONCE ONE Administration Famotidine 20 mg 06/02/23 22:49 06/02/23 23:17 Famotidine 20mg/2ml Vial IV 06/02/23 22:50 20 mg ONCE ONE Administration Lactated Ringer's 1,000 mls @ 999 mls/hr 06/02/23 23:00 06/02/23 23:17 Lactated Ringer's 1000 Ml Bag IV 06/03/23 00:00 999 mls/hr .Q1H1M BRODERICK Administration Ketorolac Tromethamine 15 mg 06/02/23 22:49 06/02/23 23:17 Ketorolac 30mg/Ml Vial IV 06/02/23 22:50 15 mg ONCE ONE Administration Lidocaine 1 each 06/03/23 00:04 06/03/23 00:09 Lidocaine 5% Transdermal Patch TP 06/03/23 00:05 1 each ONCE ONE Administration Methocarbamol 1,000 mg 06/03/23 00:04 06/03/23 00:09 Methocarbamol 500mg Tablet PO 06/03/23 00:05 1,000 mg ONCE ONE Administration Sodium Chloride 8 ml 06/02/23 22:49 Sodium Chloride 0.9% 10ml Vial IV 07/02/23 22:48 NEEDED PRN dilute pepcid ORDERS Category Date Time Status CBC w/Auto Diff [Complete Blood Count Auto Diff] Stat Lab 06/02/23 22:25 Completed CMP [Comprehensive Metabolic Panel] Stat Lab 06/02/23 22:25 Completed Lipase Stat Lab 06/02/23 22:25 Completed UA [Urinalysis and Microscopic] Stat Lab 06/02/23 22:25 Completed Medical Decision Narrative: Is a tearful 37-year-old with chronic right flank pain has had multiple CAT scans and ultrasounds which were unremarkable. I did another bedside ultrasound of her right upper quadrant and right renal area which was all normal no evidence of cholecystitis choledocholithiasis \cholelithiasis or evidence of hydronephrosis. Will hold off on further CAT scan imaging as she had significant radiation exposure. Will give her Pepcid and GI cocktail Toradol and reassess. I advised that she follow-up with the surgeon to have an endoscopy done to evaluate for possible peptic ulcer disease causing her symptoms as it has been primarily postprandial in nature also she may choose in consultation with a surgeon to have a HIDA scan and further evaluation of functional abnormalities of her gallbladder. Care will be transitioned to Dr. Anjali Andrews at 11 PM for further evaluation and treatment. <Anjali Andrews, DO - Last Filed: 06/03/23 01:16> Vital Signs: 06/02/23 22:24 06/02/23 22:30 06/02/23 23:00 Temperature 98.3 F Temperature Source Oral Pulse Rate 113 H 98 H Pulse Rate [Right] 115 H Respiratory Rate 18 Blood Pressure 132/99 H 123/77 Blood Pressure [Right Arm] 132/99 H Blood Pressure Mean [Right Arm] 110 Blood Pressure Source [Right Arm] Automatic Cuff Blood Pressure Position [Right Arm] Sitting 02 Sat by Pulse Oximetry 98 98 96 Oxygen Delivery Method Room Air 06/02/23 23:30 06/03/23 00:16 Temperature 97.8 F Temperature Source Pulse Rate 98 H 99 H Pulse Rate [Right] Respiratory Rate 15 Blood Pressure 115/76 129/86 Blood Pressure [Right Arm] Blood Pressure Mean [Right Arm] Blood Pressure Source [Right Arm] Blood Pressure Position [Right Arm] 02 Sat by Pulse Oximetry 94 L Oxygen Delivery Method Lab Data Lab Results 06/02/23 22:25: WBC 10.1, RBC 4.66, Hgb 15.1, Hct 43.7, MCV 93.8, MCH 32.4 H, MCHC 34.6, RDW 13.5, Plt Count 326, MPV 7.4, Neut % (Auto) 83.2 H, Lymph % (Auto) 11.5, [place] % (Auto) 3.3, Eos % (Auto) 1.5, Baso % (Auto) 0.4, Neut # (Auto) 8.4 H, Lymph # (Auto) 1.2, [place] # (Auto) 0.3, Eos # (Auto) 0.2, Baso # (Auto) 0.0, Sodium 139, Potassium 3.8, Chloride 105, Carbon Dioxide 23, Anion Gap 14.8, BUN 8, Creatinine 0.80, Estimated Creat Clear 141, Estimated GFR 82, Est GFR ( Amer) 99, Glucose 120 H, Calcium 9.4, Total Bilirubin 0.6, AST 34, ALT 35, Alkaline Phosphatase 69, Total Protein 7.7, Albumin 4.7, Globulin 3.0, Albumin/Globulin Ratio 1.6, Lipase 48, Urine Color Yellow, Urine Appearance Clear, Urine pH 6.5, Ur Specific [place] 1.025, Urine Protein Negative, Urine Glucose (UA) Negative, Urine Ketones Negative, Urine Blood Negative, Urine Nitrate Negative, Urine Bilirubin Negative, Urine Urobilinogen 0.2, Ur Leukocyte Esterase Negative, Urine RBC None, Urine WBC None, Ur Squamous Epith Cells Occasional, Urine Bacteria None Orders (Tests/Meds): ED MEDICATIONS Discontinued Medications Generic Name Dose Route Start Last Admin Trade Name Freq PRN Reason Stop Dose Admin Belladonna Alkaloids 60 ml 06/02/23 22:49 06/02/23 23:17 Belladonna Alkaloids 60 Ml Ml PO 06/02/23 22:50 60 ml ONCE ONE Administration Famotidine 20 mg 06/02/23 22:49 06/02/23 23:17 Famotidine 20mg/2ml Vial IV 06/02/23 22:50 20 mg ONCE ONE Administration Lactated Ringer's 1,000 mls @ 999 mls/hr 06/02/23 23:00 06/02/23 23:17 Lactated Ringer's 1000 Ml Bag IV 06/03/23 00:00 999 mls/hr .Q1H1M BRODERICK Administration Ketorolac Tromethamine 15 mg 06/02/23 22:49 06/02/23 23:17 Ketorolac 30mg/Ml Vial IV 06/02/23 22:50 15 mg ONCE ONE Administration Lidocaine 1 each 06/03/23 00:04 06/03/23 00:09 Lidocaine 5% Transdermal Patch TP 06/03/23 00:05 1 each ONCE ONE Administration Methocarbamol 1,000 mg 06/03/23 00:04 06/03/23 00:09 Methocarbamol 500mg Tablet PO 06/03/23 00:05 1,000 mg ONCE ONE Administration Sodium Chloride 8 ml 06/02/23 22:49 Sodium Chloride 0.9% 10ml Vial IV 07/02/23 22:48 NEEDED PRN dilute pepcid ORDERS Category Date Time Status CBC w/Auto Diff [Complete Blood Count Auto Diff] Stat Lab 06/02/23 22:25 Completed CMP [Comprehensive Metabolic Panel] Stat Lab 06/02/23 22:25 Completed Lipase Stat Lab 06/02/23 22:25 Completed UA [Urinalysis and Microscopic] Stat Lab 06/02/23 22:25 Completed Medical Decision Narrative: Roshni a tearful 37-year-old with chronic right flank pain has had multiple CAT scans and ultrasounds which were unremarkable. I did another bedside ultrasound of her right upper quadrant and right renal area which was all normal no evidence of cholecystitis choledocholithiasis \cholelithiasis or evidence of hydronephrosis. Will hold off on further CAT scan imaging as she had significant radiation exposure. Will give her Pepcid and GI cocktail Toradol an d reassess. I advised that she follow-up with the surgeon to have an endoscopy done to evaluate for possible peptic ulcer disease causing her symptoms as it has been primarily postprandial in nature also she may choose in consultation with a surgeon to have a HIDA scan and further evaluation of functional abnormalities of her gallbladder. Care will be transitioned to Dr. Anjali Andrews at 11 PM for further evaluation and treatment. Darryl DO: On my. The patient, she complains of continued pain. It appears to musculoskeletal with tenderness to palpation of her right paraspinal and lower back muscles. Her labs and urinalysis are reassuring. She was given oral Robaxin and a topical Lidoderm patch for symptomatic improvement. At this time, based on reassuring workup and exam, feel she is appropriate for discharge. I counseled her on the importance of close a patient follow-up, as more studies and testing can be ordered as an outpatient to determine the etiology of her chronic pain. She was given strict return precautions and was discharged in stable condition. Procedures <Tom Ivey MD - Last Filed: 06/02/23 22:55> Miscellaneous Procedure Procedure Performed: Limited RUQ ultrasound Indication: Flank pain Identified structures: -Gallbladder -Gallbladder wall -Common bile duct -Liver Findings: Negative sonographic Valenzuela's no evidence of gallstones sludge anterior bladder wall is normal no pericholecystic fluid common bile duct visualized and is normal Impression: Normal gallbladder without any evidence of cholecystitis cholelithiasis or choledocholithiasis Images were saved to permanent archive The study was technically adequate CPT 90796-06 This study was performed by tn, and I personally interpreted all images/videos. Based on my clinical judgement, these images were adequate and did not necessitate further imaging. Limited renal ultrasound Indication: A focused ultrasound of the kidneys was performed to evaluate for hydronephrosis and nephrolithiasis. The ultrasound was performed with the following indications, as noted in the H&P: Flank pain Identified structures: Right kidney Findings: No evidence of hydronephrosis Impression: No evidence of hydronephrosis or renal calculi Images were saved to permanent archive The study was technically adequate CPT: 51408-00 This study was performed by tn, and I personally interpreted all images/videos. Based on my clinical judgement, these images were adequate and did not necessitate further imaging. Critical Care <Tom Ivey MD - Last Filed: 06/02/23 22:55> Critical Care Time Critical Care Time: No
[2023-06-02 22:56] LABS: Basophils % 0.4 % (0.1-2.0); Eosinophils # 0.2 K/mm3 (0.0-0.4); Eosinophils % 1.5 % (0.1-12.0); Hematocrit 43.7 % (37.0-47.0); Hemoglobin 15.1 g/dL (12.2-16.2); Lymphocytes # 1.2 K/mm3 (0.7-4.5); Lymphocytes % 11.5 % (10-50); Mean Corpuscular HGB Conc 34.6 g/dL (31.8-35.4); Mean Corpuscular Hemoglobin 32.4 pg (27.0-31.2); Mean Corpuscular Volume 93.8 fl (81-99); Mean Platelet Volume 7.4 fl (7.4-10.4); Monocytes # 0.3 K/mm3 (0.1-1.0); Monocytes % 3.3 % (1.7-9.3); Neutrophils # 8.4 K/mm3 (1.8-7.8); Neutrophils % 83.2 % (37.0-80.0); Platelet Count 326 K/mm3 (142-424); Red Blood Count 4.66 M/mm3 (4.20-5.40); Red Cell Distribution Width 13.5 % (11.5-17.5); White Blood Count 10.1 K/mm3 (4.8-10.8)
[2023-06-02 22:57] LABS: Chloride 105 mmol/L (98-107); Potassium 3.8 mmoL/L (3.5-5.1); Sodium 139 mmol/L (136-145)
[2023-06-02 23:00] VITALS: BP 123/77; PULSE 98; O2SAT 96
[2023-06-02 23:00] LABS: Alanine Aminotransferase 35 U/L (12-78); Albumin Level 4.7 g/dl (3.5-5.0); Albumin/Globulin Ratio 1.6 (1.1-1.8); Alkaline Phosphatase 69 U/L (38-126); Anion Gap 14.8 mEq/L (5-15); Aspartate Amino Transferase 34 U/L (14-36); Bilirubin,Total 0.6 mg/dl (0.2-1.3); Blood Urea Nitrogen 8 mg/dl (7-17); Calcium 9.4 mg/dl (8.4-10.2); Carbon Dioxide 23 mmol/L (22.0-30.0); Creatinine Clearance Estimated 141 mL/min (50-200); Estimated Glomerular Filt Rate 82 ml/min (>60); GFR (African American) 99 ML/MIN (>60); Glucose 120 mg/dl (74-100); Lipase 48 U/L (23-300); Total Protein,Serum 7.7 g/dl (6.3-8.2)
[2023-06-02 23:13] LABS: Microscopic, Urine URINE MICROSCOPIC (MICROSCOPIC)
[2023-06-02] MEDS: KETOROLAC 30MG/ML VIAL 15 MG IV (23:17)
[2023-06-02] MEDS: FAMOTIDINE 20MG/2ML VIAL 20 MG IV (23:17)
[2023-06-02] MEDS: LACTATED RINGERS 1000ML 1,000 ML 999 ML IV (23:17)
[2023-06-02] MEDS: BELLADONNA ALKALOIDS 60 ML ML PO (23:17)
[2023-06-02 23:30] VITALS: BP 115/76; PULSE 98; O2SAT 94
[2023-06-02 23:36] LABS: Appearance,Urine CLEAR (Clear); Bilirubin,Urine Negative (Negative); Blood, Urine Negative (Negative); Color,Urine YELLOW (Yellow); Glucose,Urine (UA) Negative (Negative); Ketones,Urine Negative (Negative); Leukocyte Esterase,Urine Negative (Negative); Nitrate,Urine Negative (Negative); PH,Urine 6.5 (5.0-8.5); Protein,Urine Negative (Negative); Specific Gravity, Urine 1.025 (1.005-1.030); Urobilinogen,Urine 0.2 EU/dl (0.2)
[2023-06-02 23:46] LABS: Squamous Epithelial Cell,Urine Occasional #/hpf (0-5)
--- NOTE | 2023-06-02 23:59 | PC.NURSE ---
in room talking with patient at this time.
[2023-06-03] MEDS: METHOCARBAMOL 500MG TABLET 1000 MG PO (00:09)
[2023-06-03] MEDS: LIDOCAINE 5% TRANSDERMAL PATCH 1 EACH TP (00:09)
[2023-06-03 00:16] VITALS: BP 129/86; PULSE 99; RESP 15; TEMP 36.6; O2SAT 96
== END 2023-06-03 00:18 | disposition home or self-care (01) ==
PROVIDERS: Student in an Organized Health Care Education/Training Program; Emergency Provider Emergency Medicine; PCP Nurse Practitioner Family
DX: R10.11 Right upper quadrant pain (principal); F17.210 Nicotine dependence, cigarettes, uncomplicated
CPT/HCPCS: 80053; 81001; 83690; 85025; 96361; 96374; 96375; 99285

== ENCOUNTER → 2023-06-03 14:21 | Outpatient (CLI) | payer OTHER, SELFPAY ==
--- NOTE | 2023-06-03 14:29 | XR_ITS ---
FINAL REPORT CLINICAL HISTORY: Precordial chest pain FINDINGS: COMPARISON: None FINDINGS: Two views of the chest were obtained. The heart size is normal. The mediastinum is normal. No acute pulmonary abnormality is identified. There is no pneumothorax. The bony thorax is intact. IMPRESSION: No acute cardiopulmonary process. Reviewed, Interpreted and Dictated by Krissy Guillaume MD Transcribed by Alisson Fox Authenticated and [facility]
== END ==
LOC: RAD 14:24
PROVIDERS: PCP Physician Assistant; Visit Provider Family Medicine
DX: R07.89 Other chest pain (principal); R05.9 Cough, unspecified
CPT/HCPCS: 71046; 87635

== ENCOUNTER 2023-06-20 15:28 | Emergency (ER) | payer OTHER, SELFPAY ==
--- NOTE | 2023-06-20 15:27 | ECG_ITS ---
APPROVED REPORT Exam: Resting ECG HR:102 bpm ECG Measurements Heart Rate 102 AXES AR 164 P 55 QRSd 93 QRS 61 QT 326 T 34 QTc 384 Conclusion SINUS TACHYCARDIA ABNORMAL RHYTHM ECG UNCONFIRMED REPORT Electronically signed by : Edson Colin MD 06/20/2023 20:15:14
[2023-06-20 15:28] VITALS: BP 145/114; PULSE 99; RESP 18; TEMP 36.7; O2SAT 100; BMI 30.4
--- NOTE | 2023-06-20 15:35 | XR_ITS ---
FINAL REPORT CLINICAL HISTORY: chest pressure, soa smoker COMPARISON: 06/03/2023 FINDINGS: A single portable view of the chest was obtained. The heart size and pulmonary vascularity are within normal limits. The mediastinum is within normal limits. Mild bronchial wall thickening is present worrisome for bronchitis. The bony thorax is intact. IMPRESSION: Mild bronchial wall thickening is present, worrisome for bronchitis. Reviewed, Interpreted and Dictated by Power Jonas III, MD Transcribed by Vivi Arvizu Authenticated and [facility]
[2023-06-20 15:36] VITALS: PULSE 102
--- NOTE | 2023-06-20 15:41 | PC.NURSE ---
Dr. Joseph at [facility] for pt eval
[2023-06-20 15:45] LABS: Basophils # 0.1 K/mm3 (0-0.2); Basophils % 0.8 % (0.1-2.0); Eosinophils # 0.2 K/mm3 (0.0-0.4); Eosinophils % 1.5 % (0.1-12.0); Hematocrit 47.5 % (37.0-47.0); Hemoglobin 16.4 g/dL (12.2-16.2); Lymphocytes # 2.4 K/mm3 (0.7-4.5); Lymphocytes % 23.7 % (10-50); Mean Corpuscular HGB Conc 34.4 g/dL (31.8-35.4); Mean Corpuscular Hemoglobin 32.5 pg (27.0-31.2); Mean Corpuscular Volume 94.5 fl (81-99); Mean Platelet Volume 7.9 fl (7.4-10.4); Monocytes # 0.4 K/mm3 (0.1-1.0); Monocytes % 3.8 % (1.7-9.3); Neutrophils # 7.1 K/mm3 (1.8-7.8); Platelet Count 331 K/mm3 (142-424); Red Blood Count 5.03 M/mm3 (4.20-5.40); White Blood Count 10.1 K/mm3 (4.8-10.8)
--- NOTE | 2023-06-20 15:52 | [facility].EDCP ---
Discharge Plan Disposition Patient Disposition: Home, Self-Care Prescriptions Prescriptions: New prednisone 20 mg tablet 40 mg PO DAILY 5 Days Qty: 10 0RF No Action omeprazole 20 mg capsule,delayed release(DR/EC) 20 mg PO DAILY Qty: 30 2RF albuterol sulfate 90 mcg/actuation HFA aerosol inhaler inhalation ondansetron 4 mg tablet,disintegrating 4 mg PO DAILY 5 Days Qty: 5 0RF lidocaine [Lidoderm] 5 % adhesive patch,medicated 1 patch topical DAILY Qty: 15 0RF Rx Instructions: leave on most painful area for up to 12 hrs methocarbamol 750 mg tablet 750 mg PO Q8H PRN (Reason: pain) Qty: 20 0RF Referrals Follow up/Referrals: Neema Leslie PA [Primary Care Provider] - See instructions Activity Restrictions/Add. Instructions Additional Instructions/Restrictions: Call your family doctor to establish care for this visit to the emergency department and schedule follow-up within 48 hours to ensure improvement. If you have any worsening of your condition or any other concerning signs or symptoms, return to the emergency department or your primary care doctor for further evaluation. Prednisone every day for 5 days with food and water. Clinical Impressions Clinical Impression: Bronchitis Discharge ED Provider: Huy Joseph HPI General Chief Complaint: Chest Pain Stated Complaint: Chest Pressure Time Seen by Provider: 06/20/23 15:30 Mode of Arrival: Ambulatory Source of Information: Patient Limitations: No Limitations Description of Symptoms (Recalled from ER Triage Doc. by RN): Patient complaint of pain and chest pressure since 3am on Tuesday. States that it began to radiate to her left arm and left side of her face today. History of Present Illness HPI narrative: 37 female history of anxiety, depression, hysterectomy without oophorectomy presenting with shortness of breath and chest pain. Patient states 3 AM on 06/19 she began having chest pain and pressure substernally and left of sternum. Since that time, it has intermittently radiated to her left shoulder. It is a pressure at baseline, intermittently turns into a stabbing pain and radiates to her left shoulder. Associated with shortness of breath. Patient denies weakness, nausea or vomiting, diaphoresis, or any other concerns Related Data Home Medications Medication Instructions Recorded Confirmed albuterol sulfate 90 mcg/actuation inhalation 12/29/23 01/15/24 aerosol inhaler Previous Rx's Medication Instructions Recorded omeprazole 20 mg capsule,delayed 20 mg PO DAILY #30 caps 01/31/23 release lidocaine 5 % topical patch 1 patch topical DAILY #15 ea 06/03/23 (Lidoderm) methocarbamol 750 mg tablet 750 mg PO Q8H PRN pain #20 tabs 06/03/23 ondansetron 4 mg disintegrating 4 mg PO DAILY 5 days #5 tabs 06/03/23 tablet prednisone 20 mg tablet 40 mg PO DAILY 5 days #10 tabs 06/20/23 Allergies Allergy/AdvReac Type Severity Reaction Status Date / Time amoxicillin Allergy Mild Rash Verified 06/20/23 15:03 aspirin AdvReac Rash Verified 06/20/23 15:36 [facility] Disclaimer: The information contained in this section may have been updated after the patient was seen, as this information can be updated by other users. Medical History Acute lumbar myofascial strain Alcoholism Anxiety Anxiety and depression Attention deficit hyperactivity disorder (ADHD) Bipolar depression Chest pain Depression Diarrhea Insomnia OCD (obsessive compulsive disorder) Restless leg syndrome Right sided sciatica UTI (urinary tract infection), uncomplicated Vision loss of right eye Vitamin D deficiency (~06/2017) Surgical History No significant past surgical history Family History Family/Other No significant family history Social History Smoking Status: Current every day smoker tobacco type: cigarettes packs per day: 1 second hand exposure: No alcohol intake: current substance use type: marijuana current occupational status: unemployed Travel in the last 8 weeks: None household members: children housing: apartment number of children: 2 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[employer] current occupational exposures/hazards: No caffeine: Yes ROS Obtained: Yes All systems reviewed & no additional complaints except as documented Physical Exam General General appearance: alert and anxious Neck Neck exam: Present trachea midline Chest Chest inspection: Present normal inspection and symmetric chest wall rise Respiratory Respiratory exam: Present normal lung sounds bilaterally and other (Tachypneic 25-27 breaths/min); Absent respiratory distress, wheezes, stridor, accessory muscle use or prolonged expiratory phase Cardiovascular Cardiovascular exam: Present normal rhythm and tachycardia Extremities Exam Extremities exam: Absent edema Neurological Exam Neurological exam: Present alert, oriented X3 and CN II-XII intact Skin Skin exam: Present warm and dry; Absent cyanosis, diaphoresis or pallor HEART Score HEART Score HEART Score assessment performed?: Yes History (anamnesis): Slightly suspicious ECG: Normal Age: <45 years Risk factors: No known risk factors Troponin: </= normal limit HEART Score: 0 Critical Care Critical Care Time Critical Care Time: No Medical Decision Making Medical Records Medical records reviewed: Yes I reviewed the patient's medical records. Louie Inquiry Pt receiving controlled substance: No Louie was queried for this patient: No Vital Signs Vital Signs: 06/20/23 15:28 06/20/23 16:30 06/20/23 17:00 Temperature 98.1 F Temperature Source Oral Pulse Rate 99 H 93 H Pulse Rate [Radial] 99 H Respiratory Rate 18 13 20 Blood Pressure 122/91 H 123/86 Blood Pressure [Right Arm] 145/114 H Blood Pressure Mean [Right Arm] 124 Blood Pressure Source [Right Arm] Automatic Cuff Blood Pressure Position [Right Arm] Sitting 02 Sat by Pulse Oximetry 100 95 99 Oxygen Delivery Method Room Air Room Air Room Air Lab Data Labs: Lab Results 06/20/23 15:29: WBC 10.1, RBC 5.03, Hgb 16.4 H, Hct 47.5 H, MCV 94.5, MCH 32.5 H, MCHC 34.4, RDW 14.0, Plt Count 331, MPV 7.9, Neut % (Auto) 70.0, Lymph % (Auto) 23.7, [place] % (Auto) 3.8, Eos % (Auto) 1.5, Baso % (Auto) 0.8, Neut # (Auto) 7.1, Lymph # (Auto) 2.4, [place] # (Auto) 0.4, Eos # (Auto) 0.2, Baso # (Auto) 0.1, D-Dimer 0.48, Sodium 138, Potassium 4.3, Chloride 103, Carbon Dioxide 29, Anion Gap 10.3, BUN 9, Creatinine 0.70, Estimated Creat Clear 161, Estimated GFR 95, Est GFR ( Amer) 115, Glucose 109 H, Calcium 9.8, Total Bilirubin 0.7, AST 39 H, ALT 34, Alkaline Phosphatase 85, Troponin I < 0.01, NT-Pro-B Natriuret Pep < 20.0, Total Protein 8.1, Albumin 4.9, Globulin 3.2, Albumin/Globulin Ratio 1.5, TSH 4.29, Thyroxine (T4) 8.2 06/20/23 15:29 06/20/23 15:29 Response Orders (Tests/Meds): ED MEDICATIONS Discontinued Medications Generic Name Dose Route Start Last Admin Trade Name Christy PRN Reason Stop Dose Admin Albuterol/Ipratropium 3 ml 06/20/23 15:48 06/20/23 16:02 Ipratropium/Albuterol 3 Ml Neb IH 06/20/23 15:49 3 ml ONCE ONE Administration Dexamethasone 10 mg 06/20/23 16:44 06/20/23 17:12 Dexamethasone 4mg Tablet PO 06/20/23 16:45 10 mg ONCE ONE Administration Lactated Ringer's 1,000 mls @ 999 mls/hr 06/20/23 15:51 06/20/23 16:02 Lactated Ringer's 1000 Ml Bag IV 06/20/23 16:51 999 mls/hr .Q1H1M ONE Administration ORDERS Category Date Time Status XR chest portable Stat Exams 06/20/23 15:35 Completed Brain Natriuretic Peptide Stat Lab 06/20/23 15:29 Completed Complete Blood Count Auto Diff Stat Lab 06/20/23 15:29 Completed Comprehensive Metabolic Panel Stat Lab 06/20/23 15:29 Completed D-Dimer Stat Lab 06/20/23 15:29 Completed T4 (Thyroxine) Stat Lab 06/20/23 15:29 Completed TSH [Thyroid Stimulating Hormone] Stat Lab 06/20/23 15:29 Completed Troponin I Q3H Lab 06/20/23 18:45 Ordered Troponin I Q3H Lab 06/20/23 21:45 Ordered Troponin I Stat Lab 06/20/23 15:29 Completed ECG initial Besson Routine Y 06/20/23 15:27 Completed MDM Narrative Medical Decision Narrative: 37 female history of anxiety, depression, hysterectomy without oophorectomy presenting with shortness of breath and chest pain. Patient states 3 AM on 06/19 she began having chest pain and pressure substernally and left of sternum. Since that time, it has intermittently radiated to her left shoulder. It is a pressure at baseline, intermittently turns into a stabbing pain and radiates to her left shoulder. Associated with shortness of breath. Patient denies weakness, nausea or vomiting, diaphoresis, or any other concerns. History was obtained via conversation with patient. Patient was seen at her family doctor today and sent here out of concern for heart attack. On arrival, patient hemodynamically stable, alert, oriented x4, appropriate, GCS 15, moving all extremities spontaneously, pupils equal and reactive to light. Full physical exam performed and significant for anxious appearing woman in no acute distress. She is tachypneic 25 to 27 breaths/min. Saturating appropriately on room air. Intermittently tachycardic, but sitting right around 90 bpm at baseline. Speaking in partial sentences. Lungs clear to auscultation bilaterally, heart sounds normal. Pulses equal and symmetric. No lower extremity edema. Differential includes PE, pneumothorax, anxiety, ACS, [place], pneumonia, bronchitis, among others. Patient was given DuoNeb and LR for symptomatic management and correction of underlying abnormalities. Aspirin was offered, but patient declined stating rash allergy. Workup independently interpreted and significant for nonactionable CBC, but she is mildly hemoconcentrated. D-dimer negative. Chemistry nonactionable and troponin negative. BNP also negative. Unremarkable. Chest x-ray with no acute consolidation, but she does have bronchial wall thickening concerning for bronchitis. See radiology read for full review of final results. Independent interpretation of EKG shows sinus tachycardia [address] or T wave changes concerning for acute ischemia. RI, QRS, QT intervals within normal limits. No delta or epsilon waves. No Brugada pattern. No evidence of right heart strain. Heart score 0. Observation and serial troponins was considered, but deemed unnecessary due to patient feeling much better on reevaluation. On reevaluation, patient feeling back to her baseline and no longer short of breath. Saturating appropriately on room air and nontachycardic. Given patient presentation, workup, history, this most likely represents bronchitis. Because patient at baseline without signs or symptoms of clinical decompensation, deemed appropriate for discharge. Results were relayed to patient who voiced understanding and were agreeable to outpatient management and follow up. At the time of discharge the patient was hemodynamically stable, tolerating PO, and mobilizing appropriately. Given prednisone for home-going.
[2023-06-20 15:58] LABS: Alanine Aminotransferase 34 U/L (12-78); Albumin Level 4.9 g/dl (3.5-5.0); Albumin/Globulin Ratio 1.5 (1.1-1.8); Alkaline Phosphatase 85 U/L (38-126); Anion Gap 10.3 mEq/L (5-15); Aspartate Amino Transferase 39 U/L (14-36); Bilirubin,Total 0.7 mg/dl (0.2-1.3); Blood Urea Nitrogen 9 mg/dl (7-17); Calcium 9.8 mg/dl (8.4-10.2); Carbon Dioxide 29 mmol/L (22.0-30.0); Chloride 103 mmol/L (98-107); Creatinine Clearance Estimated 161 mL/min (50-200); Estimated Glomerular Filt Rate 95 ml/min (>60); GFR (African American) 115 ML/MIN (>60); Globulin 3.2 g/dL (1.3-3.2); Glucose 109 mg/dl (74-100); Potassium 4.3 mmoL/L (3.5-5.1); Sodium 138 mmol/L (136-145); Total Protein,Serum 8.1 g/dl (6.3-8.2)
--- NOTE | 2023-06-20 16:00 | PC.NURSE ---
XR AT BEDSIDE
[2023-06-20] MEDS: IPRATROPIUM/ALBUTEROL 3 ML NEB IH (16:02)
[2023-06-20] MEDS: LACTATED RINGERS 1000ML 1,000 ML 999 ML IV (16:02)
[2023-06-20 16:03] LABS: D-Dimer 0.48 ug/mL (0.0-0.5)
[2023-06-20 16:13] LABS: Troponin I < 0.01 ng/ml (0.00-0.034)
[2023-06-20 16:17] LABS: T4 (Thyroxine) 8.2 ug/dl (5.53-11.0)
[2023-06-20 16:21] LABS: NT Pro Brain Natriuretic Pep. < 20.0 pg/mL (0-125)
[2023-06-20 16:30] VITALS: BP 122/91; PULSE 99; RESP 13; O2SAT 95
[2023-06-20 16:30] LABS: Thyroid Stimulating Hormone 4.29 uIU/mL (0.465-4.68)
[2023-06-20 17:00] VITALS: BP 123/86; PULSE 93; RESP 20; O2SAT 99
[2023-06-20] MEDS: DEXAMETHASONE 4MG TABLET 10 MG PO (17:12)
[2023-06-20 17:45] VITALS: BP 133/72; PULSE 90; RESP 18; TEMP 36.7
== END 2023-06-20 17:50 | disposition home or self-care (01) ==
PROVIDERS: Emergency Provider Emergency Medicine; PCP Physician Assistant
DX: R07.89 Other chest pain (principal); J40 Bronchitis, not specified as acute or chronic; M79.602 Pain in left arm; R06.02 Shortness of breath; F31.9 Bipolar disorder, unspecified; G25.81 Restless legs syndrome; F17.210 Nicotine dependence, cigarettes, uncomplicated
CPT/HCPCS: 71045; 80053; 83880; 84436; 84443; 84484; 85025; 85378; 93005; 96360; 99285

== ENCOUNTER 2023-08-08 13:00 | Outpatient (CLI) | payer OTHER, SELFPAY ==
[2023-08-08 13:18] LABS: Basophils # 0.1 K/mm3 (0-0.2); Basophils % 0.8 % (0.1-2.0); Eosinophils # 0.3 K/mm3 (0.0-0.4); Eosinophils % 2.8 % (0.1-12.0); Hematocrit 48.7 % (37.0-47.0); Hemoglobin 16.2 g/dL (12.2-16.2); Lymphocytes # 2.7 K/mm3 (0.7-4.5); Lymphocytes % 22.1 % (10-50); Mean Corpuscular HGB Conc 33.2 g/dL (31.8-35.4); Mean Corpuscular Hemoglobin 32.3 pg (27.0-31.2); Mean Corpuscular Volume 97.4 fl (81-99); Mean Platelet Volume 7.6 fl (7.4-10.4); Monocytes # 0.5 K/mm3 (0.1-1.0); Monocytes % 3.8 % (1.7-9.3); Neutrophils # 8.5 K/mm3 (1.8-7.8); Neutrophils % 70.5 % (37.0-80.0); Platelet Count 322 K/mm3 (142-424); Red Cell Distribution Width 13.1 % (11.5-17.5)
[2023-08-08 13:30] LABS: D-Dimer 0.34 ug/mL (0.0-0.5)
[2023-08-08 13:48] LABS: Alanine Aminotransferase 28 U/L (12-78); Albumin Level 5.4 g/dl (3.5-5.0); Albumin/Globulin Ratio 1.9 (1.1-1.8); Alkaline Phosphatase 68 U/L (38-126); Anion Gap 17.4 mEq/L (5-15); Aspartate Amino Transferase 27 U/L (14-36); Bilirubin,Total 0.6 mg/dl (0.2-1.3); Blood Urea Nitrogen 18 mg/dl (7-17); Calcium 10.6 mg/dl (8.4-10.2); Carbon Dioxide 19 mmol/L (22.0-30.0); Chloride 108 mmol/L (98-107); Chol/HDL Ratio 5.3 (1-3.5); Cholesterol 230 mg/dl (140-200); Estimated Glomerular Filt Rate 51 ml/min (>60); GFR (African American) 62 ML/MIN (>60); Globulin 2.8 g/dL (1.3-3.2); Glucose 101 mg/dl (74-100); HDL Cholesterol 43 mg/dl (40-60); Magnesium 2.2 mg/dl (1.6-2.3); Potassium 4.4 mmoL/L (3.5-5.1); Sodium 140 mmol/L (136-145); Total Protein,Serum 8.2 g/dl (6.3-8.2); Triglycerides 186 mg/dl (30-150); VLDL Cholesterol 37 mg/dL (0-40)
[2023-08-08 13:51] LABS: Alanine Aminotransferase 28 U/L (12-78); Albumin Level 5.3 g/dl (3.5-5.0); Alkaline Phosphatase 66 U/L (38-126); Anion Gap 15.4 mEq/L (5-15); Aspartate Amino Transferase 26 U/L (14-36); Bilirubin,Direct 0.2 mg/dl (0.0-0.4); Bilirubin,Indirect 0.5 mg/dL (0.0-0.9); Bilirubin,Total 0.7 mg/dl (0.2-1.3); Bilirubin,Unconjugated 0.5 mg/dL (0.0-1.1); Blood Urea Nitrogen 18 mg/dl (7-17); Calcium 10.5 mg/dl (8.4-10.2); Carbon Dioxide 19 mmol/L (22.0-30.0); Chloride 109 mmol/L (98-107); Estimated Glomerular Filt Rate 51 ml/min (>60); GFR (African American) 62 ML/MIN (>60); Glucose 101 mg/dl (74-100); Potassium 4.4 mmoL/L (3.5-5.1); Sodium 139 mmol/L (136-145); Total Protein,Serum 8.2 g/dl (6.3-8.2)
[2023-08-08 13:59] LABS: C-Reactive Protein 5.6 mg/L (0-4); Direct LDL Cholesterol 117.24 mg/dL (100-129); Troponin I < 0.01 ng/ml (0.00-0.034)
[2023-08-08 14:05] LABS: Free T4 (Free Thyroxine) 0.95 ng/dl (0.78-2.19)
[2023-08-08 14:14] LABS: Erythrocyte Sedimentation Rate 43 mm/hr (0-20)
[2023-08-08 14:18] LABS: Thyroid Stimulating Hormone 3.93 uIU/mL (0.465-4.68)
[2023-08-08 14:25] LABS: Ferritin 70.6 ng/ml (6.24-137)
== END 2023-08-08 23:59 ==
LOC: LAB 13:00
PROVIDERS: Nurse Practitioner; PCP Nurse Practitioner Family; Visit Provider Nurse Practitioner Family
DX: E78.1 Pure hyperglyceridemia (principal); I10 Essential (primary) hypertension; K21.9 Gastro-esophageal reflux disease without esophagitis; R94.31 Abnormal electrocardiogram [ECG] [EKG]; R06.00 Dyspnea, unspecified; R00.0 Tachycardia, unspecified; R06.02 Shortness of breath; F17.210 Nicotine dependence, cigarettes, uncomplicated
CPT/HCPCS: 36415; 80048; 80053; 80061; 80076; 82728; 83735; 84439; 84443; 84484; 85025; 85378; 85651; 86140

== ENCOUNTER 2023-08-19 11:54 | Outpatient (CLI) | payer OTHER, SELFPAY ==
--- NOTE | 2023-08-19 | CA_ITS ---
APPROVED REPORT Exam: Exercise Treadmill Technologist: Lindsey Mata, Ht: 5 ft 8 in Wt: 197 lbs BSA: 2.03 m2 HR: 82 bpm BP: 119/70 mmHg Rhythm: NSR Medical History Medical History: HTN, Hyperlipidemia, , Smoking Medications: Buspirone,,,,, FOLIC ACID,,,,, Protonix,,,,, Vitamin B,,,,, INdomethacin,,,,, Quetiapine,,,,, Escitalopram Oxalate,,,,, ColCHIcine,,,,, Metorpolol succinate ER,,,,, SeMvastatin,,,,, Allergies: AMOXICILLIN, ASPIRIN Cardiac Risk Factors: HTN, Hyperlipidemia, Smoking Stress Test Details Test: Dejon HR Resting HR: 92 bpm Max Heart Rate (APMHR): 185 bpm Max HR Achieved: 164 bpm Target HR (85% APMHR): 157 bpm % of APMHR: 89 Recovery HR: 100 bpm HR response to stress: Normal HR response to stress BP Resting BP: 106.0/77 mmHg Max BP: 147/96 mmHg Recovery BP: 130.0/85.0 mmHg BP response to stress: Normal blood pressure response to stress. ECG Resting ECG: NSR Stress EC.[address] depression Arrhythmia: None Recovery ECG: Return to baseline within 3 minutes of recovery Recovery Arrhythmia: None Clinical Exercise duration: 07:00 min Highest Stage Achieved: Stage 3: 3.4 mph at 14% grade. Exercise capacity: 10.1 METs Overall Exercise Capacity for Age: Average Stress ECG Conclusion The patient was able to exercise for a total of 7 minutes, 0 seconds. She achieved a total of 10.1 METS. She has average exercise capacity compared to age and sex matched peers. She has normal HR and BP response to exercise. MAX HR: 164 % OF PM: 89% MAX BP: 147/96 METS: 10.1 The test was eventually stopped due to dyspnea and mild chest discomfort. Ectopy: None ST changes: < 0.[address] depression Conclusion: Average exercise capacity. No ECG evidence of ischemia at peak stress. Myoview images are reported separately. Test Summary REST . . . . . . . Sitting REST . . . . . . . Standing REST 02:51 0.0 0.0 92 . 106/ 77 . . Stage 1 01:00 10.0 1.7 110 . . . . Stage 1 02:00 10.0 1.7 115 . . . . Stage 1 03:00 10.0 1.7 119 . 124/ 64 . . Stage 2 01:00 12.0 2.5 131 . . . . Stage 2 02:00 12.0 2.5 140 . . . . Stage 2 03:00 12.0 2.5 150 . 146/ 70 . . Stage 3 01:00 14.0 3.4 163 . . . Stop exercise at 07:00 RECOVERY 01:00 0.0 0.0 138 . . . . RECOVERY 02:00 0.0 0.0 119 . . . . RECOVERY 03:00 0.0 0.0 111 . 147/ 96 . . RECOVERY 04:00 0.0 0.0 103 . 146/ 85 . . RECOVERY 05:00 0.0 0.0 98 . 130/ 85 . . RECOVERY 05:14 0.0 0.0 98 . 130/ 85 . . Electronically signed by : Jud Morrow MD 08/23/2023 11:22:17
[2023-08-19] MEDS: SODIUM CHLORIDE 0.9% 10ML SYR (RAD ONLY) 10 ML IV ×2 (01:15→14:08)
--- NOTE | 2023-08-19 11:57 | NM_ITS ---
APPROVED REPORT Exam: Nuclear Stress Test Indication: HTN, TOB USE, FM HX, C.P., SOB, PALPITATIONS, SYNCOPE, FATIGUE, TACHYCARDIA Patient Location: Outpatient Stress Tech: Lindsey Squires [place] Tech:Zayra Britton, ARRT RT (R)(N)(M) Ht: 5 ft 8 in Wt: 195 lbs Bra Size: 42D HR: 82 bpm BP: 119/70 mmHg BSA: 2.02 m2 Rhythm: NSR TID: 1.29 BMI: 29.6 History: HTN, TOB USE, FM HX, C.P., SOB, PALPITATIONS, SYNCOPE, FATIGUE, TACHYCARDIA Procedure: Patient exercised on Dejon protocol 7:00 minutes and sec, resting heart rate 82 bpm, resting blood pressure 119/70 mmHg, with exercise maximum heart rate achived was 164 bpm which is 89 % of the maximum predicted heart rate and blood pressure was 147/96 mmHg. Test was stopped due to FATIGUE, SOB. Patient denied any complaint of chest pain. Patient has exercise capacity, achieved 10.1 METs of workload on treadmill, the blood pressure response to exercise was . Cardiac Stress and Resting SPECT Images: Cardiac Stress and Resting SPECT images were obtained using technetium 99m Myoview 31.6 mCi stress and 10.80 mCi at rest. Resting and stress imaging and supine) positions demonstrate no evidence of fixed or reversible perfusion defects. There is increased transient ischemic dilatation ratio (TID 1.29), suggestive of possible multivessel disease or balanced ischemia. Gated imaging demonstrates normal global and regional LV systolic function. LVEF is calculated at 53%. Conclusion: No evidence of fixed or reversible perfusion defects. There is increased transient ischemic dilatation ratio (TID 1.29), suggestive of possible multivessel disease or balanced ischemia. Gated imaging demonstrates normal global and regional LV systolic function. LVEF is calculated at 53%. In the setting of young patient with presence of TID and normal LVEF, further evaluation with noninvasive testing (i.e. CCTA) first is recommended prior to proceeding with invasive angiography. Electronically signed by : Jud Morrow MD 08/23/2023 11:24:12
--- NOTE | 2023-08-19 13:25 | CA_ITS ---
APPROVED REPORT EXAM: Comprehensive 2D, Doppler, and color-flow Echocardiogram Yard Supervisor: Karrie Metz RVT Ht: 5 ft 8 in Wt: 197lbs BSA: 2.03 BP: 113/67 mmHg Indications: SOA,TACHYCARDIA,ABN EKG 2D Dimensions LA Volume 45.90 mL LA Volume Index 22.61 mL/m2 (M/F) 16-34 M-Mode Dimensions RVDd 2.62 cm (0.9-2.6) LA Diam 3.60 cm (1.9-4.0) LVDd 3.99 cm (3.5-5.7) LVDs 2.58 cm (3.5-5.7) IVSd 0.65 cm (0.6-1.1) PWd 0.57 cm (0.6-1.1) EF (Teich) 65.40% FS 35.30% EDV (Teich) 69.60 mL TAPSE 2.74 (<1.7) ESV (Teich) 24.10 mL LV Diastology E Decel Time 150 (160-240 msec) E/A Ratio 0.9 Aortic Valve SHAHNAZ Index 1.87 cm2/m2 AoV Peak Russel. 120.0 (50-130 cm/s) AO Peak GR. 5.70 mmHg AO Mean GR. 2.90 (<5 mmHg) AO VTI 19.4 (18-25 cm) SHAHNAZ (VTI) 3.89 (2.5-4.5 cm2) Mitral Valve MV E Max Russel. 66.0 (40-130 cm/s) MV A Velocity 73.0 (40-130 cm/s) E/A Ratio 0.90 MV PHT 44.0 ms Pulmonary Valve PV Peak Velocity 73.0 (50-150 cm/s) Tricuspid Valve TR P. Velocity 210.00 cm/s RAP Estimate 10.00 mmHg RVSP 27.60 mmHg Left Ventricle The left ventricle is normal size. The left ventricular systolic function is normal. The left ventricular ejection fraction is within the normal range. There is normal left ventricular wall thickness. There is normal LV segmental wall motion. The left ventricular diastolic function is normal. LVEF is 55%. Right Ventricle The right ventricle is normal size. The right ventricular systolic function is normal. Atria The left atrium size is normal. The right atrium size is normal. There is no Doppler evidence of interatrial shunt. Aortic Valve The aortic valve opens well. Trace aortic regurgitation. There is no aortic valvular stenosis. Mitral Valve The mitral valve is normal in structure. No evidence of mitral valve stenosis. Trace mitral regurgitation. Tricuspid Valve The tricuspid valve leaflets are thin and pliable. Trace tricuspid regurgitation. There is insufficient TR jet to estimate RVSP. Pulmonic Valve The pulmonary valve is normal in structure. Trace pulmonic regurgitation. Great Vessels The aortic root is normal in size. The ascending aorta is not well-visualized. IVC is normal in size and collapses >50% with inspiration. Pericardium There is no pericardial effusion. Other Information Study Quality: Fair Conclusion Normal biventricular systolic function. No significant valvular stenosis or regurgitation. Electronically signed by : Jud Morrow MD 08/21/2023 23:31:02
[2023-08-19] MEDS: ISOTOPE MYOVIEW (PER STUDY) 1 DOSE IV (14:08)
== END 2023-08-19 23:59 ==
LOC: RAD 11:55
PROVIDERS: PCP Nurse Practitioner Family; Visit Provider Nurse Practitioner
DX: R06.09 Other forms of dyspnea (principal); R07.89 Other chest pain; R94.31 Abnormal electrocardiogram [ECG] [EKG]; I10 Essential (primary) hypertension; E78.1 Pure hyperglyceridemia
CPT/HCPCS: 78452; 93017; 93018; 93306; A9502

== ENCOUNTER 2023-09-09 11:51 | Outpatient (CLI) | payer OTHER, SELFPAY ==
[2023-09-09 12:38] LABS: Blood Urea Nitrogen 14 mg/dl (7-17); Estimated Glomerular Filt Rate 113 ml/min (>60); GFR (African American) 137 ML/MIN (>60)
[2023-09-09 13:15] LABS: Intact Parathyroid Hormone 76.9 pg/mL (7.5-53.5)
[2023-09-09 13:19] LABS: 25-OH Vitamin D, Total 43.3 ng/mL (30-100)
[2023-09-12 13:45] LABS: Calcium, Ionized 5.1 mg/dL (4.5-5.6)
== END 2023-09-09 23:59 ==
PROVIDERS: Internal Medicine; PCP Nurse Practitioner Family; Visit Provider Nurse Practitioner Family
DX: E83.52 Hypercalcemia (principal); I10 Essential (primary) hypertension
CPT/HCPCS: 36415; 82306; 82330; 82565; 83970; 84520

== ENCOUNTER 2023-09-19 11:44 | Outpatient (CLI) | payer OTHER, SELFPAY ==
--- NOTE | 2023-09-19 11:44 | CT_ITS ---
APPROVED REPORT [facility] [place]: CLINICAL INDICATION Chest Pain, nuclear stress test showing transient ischemic dilatation (TID) TECHNIQUE Image Acquisition: A 128 slice MDCT scanner (Xfluentiala View) was used for data acquisition. A noncontrast coronary calcium scan was performed. A CT attenuation threshold of 130 Hounsfield units (HU) was used for the detection of calcium in contiguous voxels of 1 sq mm in area to be counted as individual lesions. Bolus tracking in the ascending aorta with a threshold of 180 HU was performed. Immediately afterwards, ECG synchronized cardiac CT was then performed from the cardiac base to apex using retrospective gating with ECG tube current modulation. A total of 85 mL of Isovue 370 mg/mL contrast medium was administered at 5 mL/sec followed by a saline flush using a biphasic injection protocol. A tube voltage of 120 KVp was used. The average heart rate at the time of acquisition was 54 bpm and regular. Image Reconstruction Transaxial images were reconstructed at 0.67 mm slide thickness. Data was reviewed interactively on an advanced workstation capable of 2 and 3-dimensional displays in all conventional reconstruction formats, including multiplanar reformations, maximum intensity projections, curved multiplanar reformations, and volume rendered reconstructions. When applicable, selected routine images describing the relevant coronary anatomy and pathology were saved and sent to PACS. Complications None Technical Quality Overall image quality was good. Coronary artery opacification was adequate. Total DLP (Dose-Length Product) is 1242.3 mGy-cm. The reported value represents the total of one or more individual components during the CT acquisition of this date and at this time, and as such, the same value may appear in more than one CT report depending on the interpreting/reporting physicians. COMPARISON None FINDINGS CT Coronary Calcium Scoring LMA (Left Main Artery) = 0 LAD (Left Anterior Descending) = 0 LCX (Left Coronary Circumflex) = 0 RCA (Right Coronary Artery) = 0 Total Calcium Score = 0 using the AJ-130 method. The interpretation of the calcium heart score is based on the following continuum*: 0 = no calcified plaque detected (risk of coronary artery disease is very low ??? less than 5%) 1-10 = calcium detected in extremely minimal levels (risk of coronary diseases is still low ??? less than 10%) 11-100 = mild levels of plaque detected with certainty (mild or minimal narrowing of heart arteries is likely) 101-400 = definite,at least moderate levels of plaque detected (relatively high risk of a heart attack within 3-5 years) >401-999 = extensive levels of plaque detected (high risk of heart attack, high levels of vascular disease are present, high likelihood of at least one significant coronary narrowing) *The calcium heart score quantifies the burden of coronary calcification/plaque in the coronary arteries. The calcium heart score is not able to evaluate the presence or burden of non-calcified (i.e. soft) plaque. There is no identifiable calcification in the aortic valve, mitral annulus or mitral valve, pericardium, or myocardium. Coronary CT Angiography The coronary arterial system is right dominant. Quantitative Stenosis Grading: Left Main (LM): The left main originates normally from the left sinus of Valsalva. The LM bifurcates into the left anterior descending artery and left circumflex artery. The LM is patent with no evidence of atherosclerosis. Left Anterior Descending (LAD) and Diagonal Branches: The LAD gives off 3 diagonal branch(es). The LAD and its branches are patent with no evidence of atherosclerosis. There is no evidence of LAD-myocardial bridge. Left Circumflex (LCX) and Obtuse Marginals (OM): The LCX gives off 1 Obtuse Marginal (OM) branch(es). The LCX and its branches are patent with no evidence of atherosclerosis. Right Coronary Artery (RCA): The RCA originates normally from the right sinus of Valsalva. The RCA gives off a posterior descending artery (PDA) and posterolateral (PL) branches. The RCA and its branches are patent with no evidence of atherosclerosis. Non-Coronary Cardiac Findings: Analysis of the left ventricular (LV) structure and function was performed after 3-D reconstruction of the LV from axial images, with user-corrected automatic contouring for assessment of LV volumes and user-defined reconstruction from oblique planes for measurement of 3-D cardiac structure and function. -The left ventricle systolic function is normal. -There is no left atrial appendage filling defect. Two right pulmonary veins and two left pulmonary veins drain normally into the left atrium. -No pericardial thickening or calcification. -Central and branch pulmonary arteries in the [id number] are unremarkable. -Thoracic aorta within the visualized thoracic aortic-branches in the [id number] is unremarkable. Extracardiac Structures No significant extra-cardiac findings. Note, however, that this study is focused on the cardiac findings. IMPRESSION -No coronary calcification with an Agatston score = 0 using the AJ-130 method. -No evidence of significant flow-limiting atherosclerosis of the coronary arteries. -No evidence of coronary anomalies or myocardial bridges. -CAD-RADS 0. Management recommendations per ACC/AHA guidelines*, as clinically appropriate. *Recommendations: CAD RADS 0: Reassurance. Consider non-atherosclerotic causes of chest pain. CAD RADS 1: Consider non-atherosclerotic causes of chest pain. Consider preventive therapy and risk factor modification. CAD RADS 2: Consider non-atherosclerotic causes of chest pain. Consider preventive therapy and risk factor modification, particularly for patients with nonobstructive plaque in multiple segments. CAD RADS 3: Consider further functional testing. Consider symptom-guided anti-ischemic and preventive pharmacotherapy as well as risk factor modification per published guideline statements. CAD RADS 4A: Consider further functional testing or invasive coronary angiography with revascularization per published guideline statements. Consider symptom-guided anti-ischemic and preventive pharmacotherapy as well as risk factor modification per published guideline statements. CAD RADS 4B: Invasive coronary angiography recommended with revascularization per published guideline statements. Consider symptom-guided anti-ischemic and preventive pharmacotherapy as well as risk factor modification per published guideline statements. CAD RADS 5: Consider invasive angiography and/or viability assessment with revascularization per published guideline statements. Consider symptom-guided anti-ischemic and preventive pharmacotherapy as well as risk factor modification per published guideline statements. CRITICAL RESULT None COMMUNICATION Per this written report The coronary and cardiac findings of this CCTA were reviewed, reported, and signed by Domingo Morrow MD (Environmental Science Professor) Conclusion Electronically signed by : Jud Morrow MD 09/19/2023 20:22:24
[2023-09-19 12:07] VITALS: BMI 31.0
[2023-09-19 12:14] VITALS: BMI 31.0
[2023-09-19] MEDS: IVABRADINE HCL 7.5MG TABLET PO (12:23)
[2023-09-19] MEDS: METOPROLOL TARTRATE 50MG TABLET PO ×2 (12:24→13:22)
[2023-09-19] MEDS: METOPROLOL TARTRATE 25MG TABLET 25 MG ×2 (12:25→13:23)
[2023-09-19 14:06] VITALS: BP 122/83; PULSE 61; RESP 16; O2SAT 98
[2023-09-19] MEDS: NITROGLYCERIN 0.4MG SL TABLET SL (14:06)
[2023-09-19 14:09] VITALS: BP 113/79; PULSE 67; RESP 18; O2SAT 99
[2023-09-19 14:12] VITALS: BP 99/59; PULSE 60; RESP 16; O2SAT 99
[2023-09-19 14:23] VITALS: BP 117/73; PULSE 74; RESP 16; O2SAT 98
[2023-09-19] MEDS: IOPAMIDOL-370 (76%);100ML BOTTLE 85 ML IV (14:24)
[2023-09-19] MEDS: 0.9 % SODIUM CHLORIDE 50 ML VIAL IV (14:24)
== END 2023-09-19 14:30 | disposition home or self-care (01) ==
PROVIDERS: PCP Nurse Practitioner Family; Visit Provider Nurse Practitioner
DX: R94.31 Abnormal electrocardiogram [ECG] [EKG] (principal); R42 Dizziness and giddiness; I10 Essential (primary) hypertension; F17.210 Nicotine dependence, cigarettes, uncomplicated
CPT/HCPCS: 75571; 75574; Q9967

== ENCOUNTER 2023-12-02 08:58 | Outpatient (CLI) | payer OTHER, SELFPAY ==
[2023-12-02 09:33] LABS: Basophils # 0.1 K/mm3 (0-0.2); Basophils % 0.9 % (0.1-2.0); Eosinophils # 0.2 K/mm3 (0.0-0.4); Eosinophils % 2.3 % (0.1-12.0); Hematocrit 43.9 % (37.0-47.0); Hemoglobin 13.7 g/dL (12.2-16.2); Lymphocytes # 2.1 K/mm3 (0.7-4.5); Lymphocytes % 27.1 % (10-50); Mean Corpuscular HGB Conc 31.1 g/dL (31.8-35.4); Mean Corpuscular Hemoglobin 28.2 pg (27.0-31.2); Mean Corpuscular Volume 90.6 fl (81-99); Mean Platelet Volume 6.9 fl (7.4-10.4); Monocytes # 0.3 K/mm3 (0.1-1.0); Neutrophils # 5.1 K/mm3 (1.8-7.8); Neutrophils % 65.7 % (37.0-80.0); Platelet Count 316 K/mm3 (142-424); Red Blood Count 4.85 M/mm3 (4.20-5.40); White Blood Count 7.8 K/mm3 (4.8-10.8)
[2023-12-02 10:33] LABS: Alanine Aminotransferase 19 U/L (12-78); Albumin Level 4.6 g/dl (3.5-5.0); Albumin/Globulin Ratio 1.7 (1.1-1.8); Alkaline Phosphatase 62 U/L (38-126); Amylase 49 U/L (30-110); Anion Gap 13.6 mEq/L (5-15); Aspartate Amino Transferase 21 U/L (14-36); Bilirubin,Total 0.3 mg/dl (0.2-1.3); Blood Urea Nitrogen 12 mg/dl (7-17); Carbon Dioxide 27 mmol/L (22.0-30.0); Chloride 103 mmol/L (98-107); Estimated Glomerular Filt Rate 95 ml/min (>60); GFR (African American) 115 ML/MIN (>60); Globulin 2.7 g/dL (1.3-3.2); Glucose 109 mg/dl (74-100); Lipase 102 U/L (23-300); Potassium 4.6 mmoL/L (3.5-5.1); Sodium 139 mmol/L (136-145); Total Protein,Serum 7.3 g/dl (6.3-8.2)
[2023-12-04 16:26] LABS: H. pylori Breath Test Negative (Negative)
== END 2023-12-02 23:59 | disposition home or self-care (01) ==
LOC: LAB 09:00
PROVIDERS: PCP Nurse Practitioner Family; Visit Provider Nurse Practitioner Family
DX: R11.2 Nausea with vomiting, unspecified (principal); R10.9 Unspecified abdominal pain
CPT/HCPCS: 36415; 80053; 82150; 83013; 83690; 85025

== ENCOUNTER 2024-02-22 15:26 | Outpatient (CLI) | payer OTHER, SELFPAY ==
[2024-02-22 17:29] LABS: Basophils # 0.1 K/mm3 (0-0.2); Basophils % 0.8 % (0.1-2.0); Eosinophils # 0.3 K/mm3 (0.0-0.4); Eosinophils % 3.5 % (0.1-12.0); Hematocrit 42.4 % (37.0-47.0); Hemoglobin 14.4 g/dL (12.2-16.2); Lymphocytes # 2.6 K/mm3 (0.7-4.5); Mean Corpuscular HGB Conc 33.8 g/dL (31.8-35.4); Mean Corpuscular Hemoglobin 31.3 pg (27.0-31.2); Mean Corpuscular Volume 92.6 fl (81-99); Mean Platelet Volume 8.6 fl (7.4-10.4); Monocytes # 0.5 K/mm3 (0.1-1.0); Monocytes % 6.8 % (1.7-9.3); Neutrophils # 3.9 K/mm3 (1.8-7.8); Neutrophils % 53.9 % (37.0-80.0); Platelet Count 346 K/mm3 (142-424); Red Blood Count 4.58 M/mm3 (4.20-5.40); Red Cell Distribution Width 13.8 % (11.5-17.5); White Blood Count 7.3 K/mm3 (4.8-10.8)
[2024-02-22 18:33] LABS: Erythrocyte Sedimentation Rate 12 mm/hr (0-20)
[2024-03-08 14:28] LABS: Antinuclear Antibodies (ANA) Negative; Antinuclear Antibodies, IFA Positive
== END 2024-02-22 23:59 | disposition home or self-care (01) ==
LOC: LAB.DROPOF 02-23 11:10
PROVIDERS: PCP Nurse Practitioner Family; Visit Provider Nurse Practitioner Family
DX: M79.89 Other specified soft tissue disorders (principal)
CPT/HCPCS: 84550; 85025; 85651; 86038; 86225; 86235; 86431

== ENCOUNTER 2024-03-08 09:48 | Day surgery (SDC) | payer OTHER, SELFPAY ==
[2024-03-07 11:02] VITALS: BMI 26.1
[2024-03-08 10:02] VITALS: BP 112/75; PULSE 86; RESP 18; TEMP 36.2; O2SAT 98; BMI 26.1
--- NOTE | 2024-03-08 10:05 | EXP.ANES.CKL ---
[facility] Disclaimer: The information contained in this section may have been updated after the patient was seen, as this information can be updated by other users. Medical History TMJ (temporomandibular joint disorder) Hearing disorder of both ears Chest pain LUIS (obstructive sleep apnea) Fatigue Diarrhea UTI (urinary tract infection), uncomplicated Acute lumbar myofascial strain Anxiety and depression OCD (obsessive compulsive disorder) Attention deficit hyperactivity disorder (ADHD) Bipolar depression Alcoholism Vision loss of right eye Insomnia Right sided sciatica Anxiety Depression Vitamin D deficiency (~06/2017) Restless leg syndrome Surgical History History of placement of ear tubes History of tonsillectomy and adenoidectomy History of incision and drainage History of tubal ligation History of partial hysterectomy Family History Family/Other No significant family history Social History Smoking Status: Current every day smoker tobacco type: cigarettes packs per day: 1 second hand exposure: No alcohol intake: current alcohol intake frequency: a few times a week substance use type: marijuana current occupational status: unemployed Travel in the last 8 weeks: None household members: children housing: apartment number of children: 2 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 current occupational exposures/hazards: No caffeine: Yes [facility] Anesthesia Checklist Patient Identification Patient Identification: Verbal (Name & ) Structural Data Admitted From: Home Planned Operative Procedure/s: egd Consent for Planned Operative Procedure(s) Verified: Yes Additional verifications Anesthesia Reactions: No Hx Blood Transfusions: No Blood Transfusion Reaction: No Airway Assessment Mallampati Score:: Class II C-Spine Mobility Assessed: Yes TMJ Mobility Assessed: Yes Dentition: Good Dentition Neurological Assessment Level of Consciousness: Awake, Alert and Appropriate Anesthesia Plan Anesthesia Risk discussed: Yes Anesthesia Plan: Verified ASA Class: II Anesthesia Type: MAC
[2024-03-08 10:39] VITALS: O2SAT 98
--- NOTE | 2024-03-08 10:41 | P.HP_ITS ---
History of Present Illness *Admission Date: 03/08/24 *Reason for visit:: Nausea, vomiting, lack of appetite dyspepsia *History of present illness: Mrs. Linder is a 38-year-old female who is here for nausea, vomiting, dyspepsia. The examination is deemed medically necessary for EGD. The patient has been seen, interviewed and examined prior to the procedure by both myself and the anesthesia provider. [facility] Disclaimer: The information contained in this section may have been updated after the patient was seen, as this information can be updated by other users. Medical History TMJ (temporomandibular joint disorder) Hearing disorder of both ears Chest pain LUIS (obstructive sleep apnea) Fatigue Diarrhea UTI (urinary tract infection), uncomplicated Acute lumbar myofascial strain Anxiety and depression OCD (obsessive compulsive disorder) Attention deficit hyperactivity disorder (ADHD) Bipolar depression Alcoholism Vision loss of right eye Insomnia Right sided sciatica Anxiety Depression Vitamin D deficiency (~06/2017) Restless leg syndrome Surgical History History of placement of ear tubes History of tonsillectomy and adenoidectomy History of incision and drainage History of tubal ligation History of partial hysterectomy Family History Family/Other No significant family history Social History Smoking Status: Current every day smoker tobacco type: cigarettes packs per day: 1 second hand exposure: No alcohol intake: current alcohol intake frequency: a few times a week substance use type: marijuana current occupational status: unemployed Travel in the last 8 weeks: None household members: children housing: apartment number of children: 2 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 current occupational exposures/hazards: No caffeine: No Other Medical History Have you received the Flu Vaccine for this season: No Have you received the Pneumonia Vaccine: No Review of Systems Review of Systems Review of systems (narrative): Negative *Cardiovascular Comments: Negative *Gastrointestinal Comments: Negative *Genitourinary Comments: Negative *Musculoskeletal Comments: Negative *Neurologic Comments: Negative Meds Home Medications and Allergies Home Medications ?Medication ?Instructions ?Recorded ?Confirmed ?Type paroxetine HCl 12.5 mg 12.5 mg PO DAILY #30 tabs 02/22/24 03/07/24 Rx tablet,extended release 24 hr (Paxil CR) New Prescriptions to Start Prescriptions: Allergies Allergy/AdvReac Type Severity Reaction Status Date / Time amoxicillin Allergy Mild Rash Verified 03/08/24 10:01 Exam Data for Last 24 hours Vital signs and Labs for Last 24 Hours: Temp Pulse Resp BP Pulse Ox O2 Del Method 97.2 F L 86 18 112/75 98 Room Air 03/08/24 10:02 03/08/24 10:02 03/08/24 10:02 03/08/24 10:02 03/08/24 10:02 03/08/24 10:02 I & O for Last 24 hours: Intake & Output 03/05/24 03/06/24 03/07/24 03/08/24 23:59 23:59 23:59 23:59 Weight 172 lb 172 lb *Routine HEENT Exam Head: Present normocephalic Eye: Present EOMI and PERRL ENT: Present mucous membranes moist *Routine Neck Exam Neck: Present supple *Routine Respiratory Exam Respiratory: Present CTA bilaterally *Routine Cardiovascular Exam Cardiovascular: Present RRR *Routine Abdominal Exam Abdominal: Present soft and normoactive bowel sounds; Absent tenderness *Routine Rectal Exam Rectal:: deferred *Routine Genitalia Exam Genitalia:: deferred *Routine Extremities Exam Extremities: Absent cyanosis, clubbing or edema *Routine Skin Exam Skin: Present warm; Absent rash *Routine Neurological Exam Neurological: Present alert and oriented X3 Assessment and Plan *Assessment and plan (1) Early satiety: Status: Acute Category: Medical Code(s): R68.81 - Early satiety (2) Nausea and vomiting: Status: Acute Category: Medical Code(s): R11.2 - Nausea with vomiting, unspecified (3) Weight loss: Status: Acute Category: Medical Code(s): R63.4 - Abnormal weight loss Plan A/P: 1. Nausea/vomiting and dyspepsia is the preprocedural diagnosis. The patient will be anesthetized/sedated using MAC sedation. The patient has been seen and examined. Cardiac and lung assessment prior to the examination is stable. Proceed with planned EGD
--- NOTE | 2024-03-08 10:43 | HMH.PROCNOTE ---
[facility] Procedure Note Date: 03/08/24 Time: 10:48 Procedure Note:: Upper Endoscopy Procedure Report: Esophagogastroduodenoscopy with cold biopsies Endoscopost: Rubin Elias II, MD Referring Physician: POORNIMA Callahan Date of Procedure: March 08, 2024 Equipment: Olympus GIF 190 standard upper endoscope Sedation: MAC sedation Indications: Mrs. Linder is a 38-year-old female with nausea and weight loss. She also has had some indigestion and dyspepsia. She has had loss of appetite and early satiety. She states that she has lost 34 pounds in the last year and 18 pounds in the last 2 months. She does have a history of alcoholism and has been sober for 8 months. She did have a colonoscopy 6 or 7 years ago in [place] and had an EGD with Dr. Joseph Olson M.D. in 2021. She was diagnosed with H. pylori at that time and had improvement after antibiotic treatment. She has had an unremarkable CAT scan and gallbladder ultrasound. 3 years ago she had an intra-abdominal abscess with EBSL and was treated through infectious disease. Procedure: Prior to the procedure, a history and physical exam was performed, and patient's medications and allergies were reviewed. The risks, benefits and alternatives of the sedation and procedure were discussed with the patient. All questions were answered and informed consent was obtained. The patient was brought to the procedure room. Patient identification and proposed procedure were verified by the physician and the nurse. The patient was placed in a left lateral decubitus position and the scope was passed under direct vision. Throughout the procedure, the patient's blood pressure, pulse, and oxygen saturations were monitored continuously. The upper GI endoscopy was accomplished without difficulty. The patient tolerated the procedure well. Findings: The scope was passed directly into the upper esophagus and advanced to the third portion of the duodenum. There was mild patchy duodenitis of the duodenal bulb and the postbulbar duodenum was normal. Biopsies were taken from the bulb and first portion of the duodenum. The scope was withdrawn through a normal duodenal bulb and pylorus into the stomach. There was mild reactive gastropathy of the antrum and mild chronic gastritis of the body and fundus. The remainder of the antrum, body and fundus of the stomach were grossly normal. There were no gastric ulcerations or erosions. Upon retroflexion there was no hiatal hernia. 2 biopsies were taken in the antrum and along the lesser curvature for histology to rule out gastritis and/or H pylori. The scope was then withdrawn into the esophagus. There is no evidence of reflux esophagitis or Murray's. The remainder of the esophageal mucosa was normal. Impression: 1. Mild chronic gastritis/mild chronic duodenitis mild reactive gastropathy Plan: I will follow-up the biopsies to rule out H. pylori. 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 I would consider adding metoclopramide. If her symptoms persist I would consider treatment with buspirone for improved gastric accommodation/benefit on early satiety and weight.
[2024-03-08 10:52] VITALS: BP 101/49; PULSE 84; RESP 16; TEMP 36.2; O2SAT 95
[2024-03-08 11:02] VITALS: BP 103/61; PULSE 83; RESP 16; O2SAT 95
[2024-03-08 11:10] VITALS: BP 103/68; PULSE 73; RESP 16; O2SAT 96
[2024-03-08 11:22] VITALS: BP 107/70; PULSE 83; RESP 16; TEMP 36.4; O2SAT 98
== END 2024-03-08 11:36 | disposition home or self-care (01) ==
PROVIDERS: PCP Nurse Practitioner Family; Visit Provider Internal Medicine Gastroenterology
PROC: 0DJ08ZZ Inspection of Upper Intestinal Tract, Via Natural or Artificial Opening Endoscopic (ICD-10-PCS; CPT 43235; principal; 2024-03-08 11:30)
DX: R68.81 Early satiety (principal); R11.2 Nausea with vomiting, unspecified; R63.4 Abnormal weight loss; K30 Functional dyspepsia; K29.50 Unspecified chronic gastritis without bleeding; K29.80 Duodenitis without bleeding; K31.9 Disease of stomach and duodenum, unspecified
CPT/HCPCS: 43239; 99221

== ENCOUNTER 2024-03-19 13:57 | Outpatient (CLI) | payer OTHER, SELFPAY ==
--- NOTE | 2024-03-19 14:00 | XR_ITS ---
FINAL REPORT CLINICAL HISTORY: constipation, abd pain COMPARISON: None FINDINGS: ABDOMEN: Upright and supine views of the abdomen reveal a normal bowel gas pattern. A moderate amount of stool is present in the colon. There is no evidence of small bowel obstruction. There is a 10 mm stone overlying the lower pole of the left kidney. No acute osseous abnormalities identified. IMPRESSION: Nonspecific bowel gas pattern with a moderate stool burden. 10 mm stone overlying the lower pole of the left kidney. Reviewed, Interpreted and Dictated by Jaun Mg MD Transcribed by Vivi Arvizu Authenticated and [facility]
== END 2024-03-19 23:59 | disposition home or self-care (01) ==
LOC: RAD 13:58
PROVIDERS: PCP Nurse Practitioner Family; Visit Provider Nurse Practitioner Family
DX: R10.30 Lower abdominal pain, unspecified (principal); K59.09 Other constipation
CPT/HCPCS: 74019

== ENCOUNTER 2024-05-09 09:55 | Emergency (ER) | payer OTHER, SELFPAY ==
--- NOTE | 2024-05-09 09:59 | XR_ITS ---
FINAL REPORT CLINICAL HISTORY: pain FINDINGS: Right wrist Three views were obtained. There is no fracture or dislocation. The joint spaces appear normal. No soft tissue abnormality is identified. IMPRESSION: No acute process. Reviewed, Interpreted and Dictated by Power Jonas III, MD Transcribed by Alka Galvan Authenticated and [facility]
--- NOTE | 2024-05-09 09:59 | XR_ITS ---
FINAL REPORT CLINICAL HISTORY: pain FINDINGS: Right hand Three views were obtained. There is a lucency in the fifth middle phalanx, nondisplaced fracture is not excluded. IMPRESSION: Possible fracture of the fifth middle phalanx. Reviewed, Interpreted and Dictated by Power Jonas III, MD Transcribed by Alka Galvan Authenticated and [facility]
[2024-05-09 11:00] VITALS: BP 127/94; PULSE 134; RESP 20; TEMP 36.6; O2SAT 95; BMI 24.0
--- NOTE | 2024-05-09 11:16 | ED_ITS ---
Discharge Plan Disposition Patient Disposition: Home, Self-Care Condition: Good Prescriptions Prescriptions: New ibuprofen [IBU] 800 mg tablet 800 mg PO Q8HP PRN (Reason: Moderate Pain) Qty: 30 0RF No Action clonazepam 0.5 mg tablet 0.5 mg PO DAILY lurasidone 20 mg tablet 20 mg PO DAILY desvenlafaxine succinate 25 mg tablet extended release 24 hr 25 mg PO DAILY Referrals Follow up/Referrals: Kena Lynne APRN [Primary Care Provider] - See instructions Activity Restrictions/Add. Instructions Additional Instructions/Restrictions: Rest the extremity, Elevate the extremity as tolerated while you are resting. Take ibuprofen for pain. I sent in a prescription to your pharmacy. Follow up with Dr. Bush (orthopedics). I put in a referral but you need to call his office and schedule an appointment. Follow up with your regular doctor. GO TO THE ER FOR ANY WORSENING SYMPTOMS Clinical Impressions Clinical Impression: De Quervain's tenosynovitis, right Stand Alone Forms Stand Alone Forms: Work/School Release Instructions Patient Instructions: De Quervain Tenosynovitis, DI for Tendinitis Print Language Print Language: Micronesian Discharge ED Provider: Osito Argueta [facility] General Stated complaint: R wrist pain Time Seen by Provider: 05/09/24 11:10 Related Data Home Medications ?Medication ?Instructions ?Recorded ?Confirmed clonazepam 0.5 mg tablet 0.5 mg PO DAILY 05/09/24 05/09/24 desvenlafaxine succinate 25 mg 25 mg PO DAILY 05/09/24 05/09/24 tablet,extended release 24 hr lurasidone 20 mg tablet 20 mg PO DAILY 05/09/24 05/09/24 Previous Rx's ?Medication ?Instructions ?Recorded ibuprofen 800 mg tablet (IBU) 800 mg PO Q8HP PRN Moderate Pain 05/09/24 #30 tabs Allergies Allergy/AdvReac Type Severity Reaction Status Date / Time amoxicillin Allergy Mild Rash Verified 03/29/24 15:07 cariprazine (From Vraylar) Allergy Unknown Verified 05/09/24 11:17 allergy reaction paroxetine (From Paxil) Allergy Unknown Verified 05/09/24 11:17 allergy reaction [facility] Disclaimer: The information contained in this section may have been updated after the patient was seen, as this information can be updated by other users. Medical History Nausea TMJ (temporomandibular joint disorder) Hearing disorder of both ears Chest pain LUIS (obstructive sleep apnea) Fatigue Diarrhea UTI (urinary tract infection), uncomplicated Acute lumbar myofascial strain Anxiety and depression OCD (obsessive compulsive disorder) Attention deficit hyperactivity disorder (ADHD) Bipolar depression Alcoholism Vision loss of right eye Insomnia Right sided sciatica Anxiety Depression Vitamin D deficiency (~06/2017) Restless leg syndrome Surgical History History of placement of ear tubes History of tonsillectomy and adenoidectomy History of incision and drainage History of tubal ligation History of partial hysterectomy Family History Family/Other No significant family history Social History Smoking Status: Current every day smoker tobacco type: cigarettes packs per day: 1 second hand exposure: No alcohol intake: current alcohol intake frequency: a few times a week substance use type: marijuana current occupational status: unemployed Travel in the last 8 weeks: None household members: children housing: apartment number of children: 2 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 current occupational exposures/hazards: No caffeine: No ROS Obtained: Yes All systems reviewed & no additional complaints except as documented Constitutional Constitutional: Denies chills and Denies fever(s) Eyes Eyes: Denies eye discharge ENT Ears, Nose, Mouth, and Throat: Denies dizziness, Denies otalgia and Denies sore throat Cardiovascular Cardiovascular: Denies chest pain Respiratory Respiratory: Denies shortness of breath, Denies chest congestion, Denies cough, Denies stridor and Denies wheezing Gastrointestinal Gastrointestingal: Denies nausea or vomiting Musculoskeletal Musculoskeletal: Reports as per HPI Integumentary/Breasts Skin/Breast: Denies rash Neurologic Neurologic: Denies dizziness and Denies paresthesias Allergic/Immunologic Allergic/Immunologic: Denies wheezing Physical Exam General General appearance: alert and in no apparent distress Head Head exam: atraumatic, normocephalic and normal inspection Eye Eye exam: Present normal appearance, PERRL and EOMI ENT ENT exam: Present normal exam, normal oropharynx, mucous membranes moist, TM's normal bilaterally and normal external ear exam Neck Neck exam: Present normal inspection, full ROM and trachea midline; Absent meningismus or lymphadenopathy Chest Chest inspection: Present normal inspection and symmetric chest wall rise; Absent tenderness Respiratory Respiratory exam: Present normal lung sounds bilaterally; Absent respiratory distress Cardiovascular Cardiovascular exam: Present regular rate and normal rhythm; Absent JVD Abdominal Exam Abdominal exam: Present soft and normal bowel sounds; Absent distention, tenderness or guarding Extremities Exam Extremities exam: Present normal inspection, full ROM and normal capillary refill; Absent calf tenderness Back Exam Back exam: Present normal inspection; Absent tenderness Neurological Exam Neurological exam: Present alert and oriented X3 Psychiatric Psychiatric exam: Present normal affect and normal mood Skin Skin exam: Present warm, dry, intact and normal color Lymphatic Lymphatic Findings: no adenopathy Medical Decision Making Medical Records Medical records reviewed: No I reviewed the patient's medical records. Screening: Per USPSTF and CDC recommendations, given the prevalence of disease in our region, it is our hospital?s policy to screen for HIV and viral Hepatitis for all patients aged 18 and over and those with ongoing risk factors. Louie Inquiry Pt receiving controlled substance: No Lab Data Lab results reviewed: Yes I reviewed the patient's lab results. Orders (Tests/Meds): ORDERS Category Date Time Status Wrist XR right minimum 3 views [XR wrist RT min 3V] Exams 05/09/24 09:59 Taken Stat XR hand RT min 3V Stat Exams 05/09/24 09:59 Taken
[2024-05-09 12:14] VITALS: BP 127/94; PULSE 134; RESP 20; TEMP 36.6; O2SAT 95
== END 2024-05-09 12:33 | disposition home or self-care (01) ==
PROVIDERS: Emergency Provider Nurse Practitioner Family; PCP Nurse Practitioner Family
DX: M65.4 Radial styloid tenosynovitis [de Quervain] (principal); M25.531 Pain in right wrist
CPT/HCPCS: 73110; 73130; 99212; G0381

== ENCOUNTER 2024-05-21 11:27 | Day surgery (SDC) | payer OTHER, SELFPAY ==
[2024-05-21] MEDS: LACTATED RINGERS 1000ML 1,000 ML 25 ML IV (12:06)
[2024-05-21 12:07] VITALS: BP 121/71; PULSE 85; RESP 16; TEMP 36.4; O2SAT 98; BMI 24.0
--- NOTE | 2024-05-21 13:48 | EXP.ANES.CKL ---
[facility] Disclaimer: The information contained in this section may have been updated after the patient was seen, as this information can be updated by other users. Medical History Acute lumbar myofascial strain Alcoholism Anxiety Anxiety and depression Attention deficit hyperactivity disorder (ADHD) Bipolar depression Chest pain Depression Diarrhea Fatigue Hearing disorder of both ears Insomnia Nausea OCD (obsessive compulsive disorder) LUIS (obstructive sleep apnea) Restless leg syndrome Right sided sciatica TMJ (temporomandibular joint disorder) UTI (urinary tract infection), uncomplicated Vision loss of right eye Vitamin D deficiency (~06/2017) Surgical History History of incision and drainage History of partial hysterectomy History of placement of ear tubes History of tonsillectomy and adenoidectomy History of tubal ligation Family History Family/Other No significant family history Social History Smoking Status: Current every day smoker tobacco type: cigarettes packs per day: 1 second hand exposure: No alcohol intake: current alcohol intake frequency: a few times a week substance use type: marijuana current occupational status: unemployed Travel in the last 8 weeks: None household members: children housing: apartment number of children: 2 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 current occupational exposures/hazards: No caffeine: No Have you lived/traveled outside US in past 30 days?: No Contact w/someone who lives/traveled outside US past 30 days?: No Exposure to someone with infectious disease in past 14 days?: No Do you have a fever (greater than 100.4 F or 38 C)?: No Have you tested positive for COVID-19: No Exposed to someone with COVID-19 in past 14 days?: No Do you have a sore throat?: No Do you have a cough?: No Do you have any weakness?: No Do you have any diarrhea?: No Are you experiencing any unusual bleeding?: No Do you have any muscle aches/pain?: No Do you have any abdominal pain?: No Are you experiencing loss of taste or smell?: No [facility] Anesthesia Checklist Patient Identification Patient Identification: Arm Band Structural Data Admitted From: Home Planned Operative Procedure/s: Colonoscopy Consent for Planned Operative Procedure(s) Verified: Yes Verified Documents: Surgical Consent and History and Physical NPO Status Verified Time NPO: 00:00 Additional verifications Anesthesia Reactions: No Hx Blood Transfusions: No Blood Transfusion Reaction: No Airway Assessment Mallampati Score:: Class II C-Spine Mobility Assessed: Yes TMJ Mobility Assessed: Yes Dentition: Good Dentition Neurological Assessment Level of Consciousness: Awake, Alert and Appropriate Anesthesia Plan Anesthesia Risk discussed: Yes Anesthesia Plan: Verified ASA Class: II Anesthesia Type: MAC
--- NOTE | 2024-05-21 14:10 | EXP.HP ---
History of Present Illness *Admission Date: 05/21/24 *Reason for visit:: Constipation/bloating/nausea/painful bowel movements *History of present illness: Mrs. Linder is a 38-year-old female who is here for chronic constipation, painful bowel movements, bloating, nausea and abdominal discomfort. The examination is deemed medically necessary for diagnostic colonoscopy. The patient has been seen, interviewed and examined prior to the procedure by both myself and the anesthesia provider. [facility] Disclaimer: The information contained in this section may have been updated after the patient was seen, as this information can be updated by other users. Medical History Acute lumbar myofascial strain Alcoholism Anxiety Anxiety and depression Attention deficit hyperactivity disorder (ADHD) Bipolar depression Chest pain Depression Diarrhea Fatigue Hearing disorder of both ears Insomnia Nausea OCD (obsessive compulsive disorder) LUIS (obstructive sleep apnea) Restless leg syndrome Right sided sciatica TMJ (temporomandibular joint disorder) UTI (urinary tract infection), uncomplicated Vision loss of right eye Vitamin D deficiency (~06/2017) Surgical History History of incision and drainage History of partial hysterectomy History of placement of ear tubes History of tonsillectomy and adenoidectomy History of tubal ligation Family History Family/Other No significant family history Social History Smoking Status: Current every day smoker tobacco type: cigarettes packs per day: 1 second hand exposure: No alcohol intake: current alcohol intake frequency: a few times a week substance use type: marijuana current occupational status: unemployed Travel in the last 8 weeks: None household members: children housing: apartment number of children: 2 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 current occupational exposures/hazards: No caffeine: No Have you lived/traveled outside US in past 30 days?: No Contact w/someone who lives/traveled outside US past 30 days?: No Exposure to someone with infectious disease in past 14 days?: No Do you have a fever (greater than 100.4 F or 38 C)?: No Have you tested positive for COVID-19: No Exposed to someone with COVID-19 in past 14 days?: No Do you have a sore throat?: No Do you have a cough?: No Do you have any weakness?: No Do you have any diarrhea?: No Are you experiencing any unusual bleeding?: No Do you have any muscle aches/pain?: No Do you have any abdominal pain?: No Are you experiencing loss of taste or smell?: No Other Medical History Have you received the Flu Vaccine for this season: No Have you received the Pneumonia Vaccine: No Review of Systems Review of Systems Review of systems (narrative): Negative *Cardiovascular Comments: Negative *Gastrointestinal Comments: Negative *Genitourinary Comments: Negative *Musculoskeletal Comments: Negative *Neurologic Comments: Negative Meds Home Medications and Allergies Home Medications ?Medication ?Instructions ?Recorded ?Confirmed ?Type ibuprofen 800 mg tablet (IBU) 800 mg PO Q8HP PRN Moderate Pain 05/09/24 05/21/24 Rx #30 tabs desvenlafaxine succinate 25 mg 50 mg PO DAILY 05/16/24 05/21/24 History tablet,extended release 24 hr divalproex 500 mg tablet,delayed 500 mg PO BID 05/16/24 05/21/24 History release New Prescriptions to Start Prescriptions: Allergies Allergy/AdvReac Type Severity Reaction Status Date / Time amoxicillin Allergy Mild Rash Verified 05/21/24 12:06 cariprazine (From Vraylar) Allergy Unknown Verified 05/21/24 12:06 allergy reaction paroxetine (From Paxil) Allergy Unknown Verified 05/21/24 12:06 allergy reaction Exam Data for Last 24 hours Vital signs and Labs for Last 24 Hours: Temp Pulse Resp BP Pulse Ox O2 Del Method 97.6 F 85 16 121/71 98 Room Air 05/21/24 12:07 05/21/24 12:07 05/21/24 12:07 05/21/24 12:07 05/21/24 12:07 05/21/24 12:07 I & O for Last 24 hours: Intake & Output 05/18/24 05/19/24 05/20/24 05/21/24 23:59 23:59 23:59 23:59 Weight 158 lb *Routine HEENT Exam Head: Present normocephalic Eye: Present EOMI and PERRL ENT: Present mucous membranes moist *Routine Neck Exam Neck: Present supple *Routine Respiratory Exam Respiratory: Present CTA bilaterally *Routine Cardiovascular Exam Cardiovascular: Present RRR *Routine Abdominal Exam Abdominal: Present soft and normoactive bowel sounds; Absent tenderness *Routine Rectal Exam Rectal:: deferred *Routine Genitalia Exam Genitalia:: deferred *Routine Extremities Exam Extremities: Absent cyanosis, clubbing or edema *Routine Skin Exam Skin: Present warm; Absent rash *Routine Neurological Exam Neurological: Present alert and oriented X3 Assessment and Plan *Assessment and plan (1) Lower abdominal pain: Status: Acute Category: Medical Code(s): R10.30 - Lower abdominal pain, unspecified (2) Chronic constipation: Status: Acute Category: Medical Code(s): K59.09 - Other constipation (3) Pain with bowel movements: Status: Acute Category: Medical Code(s): R19.8 - Other specified symptoms and signs involving the digestive system and abdomen Plan A/P: 1. Painful bowel movements with lower abdominal pain and constipation is the preprocedural diagnosis. The patient will be anesthetized/sedated using MAC sedation. The patient has been seen and examined. Cardiac and lung assessment prior to the examination is stable. Proceed with planned diagnostic colonoscopy
[2024-05-21 14:18] VITALS: O2SAT 100
--- NOTE | 2024-05-21 14:18 | P.PCN_ITS ---
[facility] Procedure Note Date: 05/21/24 Time: 14:34 Procedure Note:: Colonoscopy Procedure Report: Colonoscopy with cold snare polypectomy Endoscopist: Rubin Elias II, MD Referring physician: POORNIMA Callahan Date of Procedure: May 21, 2024 Equipment: Olympus 190 variable stiffness pediatric colonoscope Sedation: MAC sedation Indication: Mrs. Linder is a 38-year-old female who has had persistent nausea. She did have EGD with me in March and had some mild chronic gastroduodenitis and reactive gastropathy. I did recommend continuing MiraLAX with fiber twice a day and Iberogast. After that, she developed more significant constipation and Ibsrela was added. She only got samples and this was not covered. She continues to have bloating and right sided abdominal pain. She has obstipation with incomplete defecation. She did have Linzess 290 mcg samples for short time which did not help. She does have painful bowel movements. She has had moderate weight loss over the last year. Procedure: Prior to the procedure, a history and physical exam was performed, and patient's medications and allergies were reviewed. The risks, benefits and alternatives of the sedation and procedure were discussed with the patient. All questions were answered and informed consent was obtained. The patient was brought to the procedure room. Patient identification and proposed procedure were verified by the physician and the nurse. The patient was placed in a left lateral decubitus position and the scope was passed under direct vision. Throughout the procedure, the patient's blood pressure, pulse, and oxygen saturations were monitored continuously. The colonoscopy was accomplished without difficulty. The patient tolerated the procedure well. Findings: On digital rectal examination there was normal rectal tone. There were no external hemorrhoids. There was an anterior rectocele. The colonoscope was introduced through the anal canal to the rectum and advanced to the cecum. The ileocecal valve and appendiceal orifice were identified. The scope was advanced a short distance into the ileum which appeared grossly normal. The scope was then withdrawn into the colon. There was a single 5 mm transverse colon polyp removed via cold snare polypectomy. The remaining cecum, ascending, transverse, descending, sigmoid and rectum were grossly normal. There were no other mucosal abnormalities identified. Upon retroflexion within the rectum there were grade 2 internal hemorrhoids.The preparation was excellent throughout with [place] Preparation Score of 9. The cecal time was 12 minutes. Impression: 1. Transverse colon polyp (5 mm) 2. Anterior rectocele 3. Grade 2 internal hemorrhoids Plan: I will follow-up the polyp histology and based upon young age for adenomatous polyp, would recommend repeat surveillance colonoscopy in 5 years. I do feel the patient has outlet dysfunction constipation and pelvic floor dyssynergia. She may benefit from pelvic floor physical therapy. 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 The pain can be excruciating and debilitating. We will discuss treatment options.
[2024-05-21 14:40] VITALS: BP 95/55; PULSE 85; RESP 16; O2SAT 97
[2024-05-21 14:50] VITALS: BP 97/61; PULSE 85; RESP 16; O2SAT 96
[2024-05-21 14:58] VITALS: BP 101/64; PULSE 85; RESP 16; O2SAT 97
[2024-05-21 15:09] VITALS: BP 105/65; PULSE 88; RESP 16; O2SAT 98
== END 2024-05-21 15:11 | disposition home or self-care (01) ==
PROVIDERS: PCP Nurse Practitioner Family; Visit Provider Internal Medicine Gastroenterology
PROC: (CPT 45385; principal; 2024-05-21 14:00)
DX: R10.30 Lower abdominal pain, unspecified (principal); K59.09 Other constipation; R19.8 Other specified symptoms and signs involving the digestive system and abdomen; K59.89 Other specified functional intestinal disorders; R10.9 Unspecified abdominal pain; K58.1 Irritable bowel syndrome with constipation; R11.0 Nausea; K63.5 Polyp of colon; N81.6 Rectocele; K64.1 Second degree hemorrhoids
CPT/HCPCS: 45385; J2704; J7120

== ENCOUNTER 2024-06-08 10:19 | Outpatient (CLI) | payer OTHER, SELFPAY ==
--- NOTE | 2024-06-08 10:22 | CT_ITS ---
FINAL REPORT TECHNIQUE: Thin section axial images are obtained through the abdomen and pelvis after intravenous contrast. Reconstruction images were obtained from the axial data. Exam was performed using dose reduction techniques. CLINICAL HISTORY: abd pain, fever, umbilical discharge COMPARISON: 04/21/2023 FINDINGS: LUNG BASES: Lung bases are clear. Heart size is normal. LIVER: There are focal fatty changes adjacent to the falciform ligament. GALLBLADDER/BILIARY SYSTEM: Gallbladder is present. No gallstones. No biliary dilatation. SPLEEN: Unremarkable. PANCREAS: Unremarkable. ADRENALS: Unremarkable. KIDNEYS/URETERS/BLADDER: No hydronephrosis, or renal mass. There is a nonobstructing left renal stone, stable since the prior CT. Unremarkable urinary bladder. GI TRACT: No small bowel obstruction or dilatation. Normal appendix. No acute colon abnormality. PELVIC ORGANS: The uterus is absent. LYMPH NODES/RETROPERITONEUM/MESENTERY: No lymphadenopathy. No abdominal aortic aneurysm. ABDOMINAL WALL: There is soft tissue density in the region of the umbilicus, that does not represent fluid but may be inflammatory in nature. FREE FLUID: No ascites. BONES: No acute osseous abnormality. IMPRESSION: There is a nonobstructing left renal stone, stable since the prior CT of 2022. There is soft tissue density in the region of the umbilicus, that does not represent fluid but may be inflammatory in nature. No focal abscess is identified. Reviewed, Interpreted and Dictated by Julieta Wynne MD Transcribed by Vivi Arvizu Authenticated and [facility]
[2024-06-08] MEDS: SODIUM CHLORIDE 0.9% 10ML SYR (RAD ONLY) 10 ML IV (10:52)
[2024-06-08] MEDS: IOPAMIDOL-370 (76%);100ML BOTTLE 75 ML IV (10:52)
[2024-06-08 13:30] LABS: Microscopic, Urine URINE MICROSCOPIC (MICROSCOPIC)
[2024-06-08 13:49] LABS: Basophils # 0.1 K/mm3 (0-0.2); Basophils % 0.6 % (0.1-2.0); Eosinophils # 0.3 K/mm3 (0.0-0.4); Eosinophils % 3.6 % (0.1-12.0); Hematocrit 40.9 % (37.0-47.0); Hemoglobin 14.2 g/dL (12.2-16.2); Lymphocytes # 3.2 K/mm3 (0.7-4.5); Lymphocytes % 41.4 % (10-50); Mean Corpuscular HGB Conc 34.7 g/dL (31.8-35.4); Mean Corpuscular Hemoglobin 30.5 pg (27.0-31.2); Mean Corpuscular Volume 87.8 fl (81-99); Mean Platelet Volume 10.5 fl (7.4-10.4); Monocytes # 0.4 K/mm3 (0.1-1.0); Monocytes % 5.6 % (1.7-9.3); Neutrophils # 3.7 K/mm3 (1.8-7.8); Neutrophils % 48.5 % (37.0-80.0); Platelet Count 277 K/mm3 (142-424); Red Blood Count 4.66 M/mm3 (4.20-5.40); Red Cell Distribution Width 11.9 % (11.5-17.5); White Blood Count 7.7 K/mm3 (4.8-10.8)
[2024-06-08 13:53] LABS: Appearance,Urine CLEAR (Clear); Blood, Urine Negative (Negative); Color,Urine YELLOW (Yellow); Glucose,Urine (UA) Negative (Negative); Ketones,Urine Negative (Negative); Leukocyte Esterase,Urine Negative (Negative); Nitrate,Urine Negative (Negative); Protein,Urine Negative (Negative); Specific Gravity, Urine >= 1.030 (1.005-1.030); Urobilinogen,Urine 0.2 EU/dl (0.2)
[2024-06-08 14:27] LABS: Bacteria,Urine 2+ /lpf; Bilirubin,Urine 1+ (Negative); Calcium Oxalate Crystals,Urine 2+ /lpf; Mucus,Urine Trace /lpf; Squamous Epithelial Cell,Urine Occasional #/hpf (0-5); WBC,Urine Occasional #/hpf (0-3)
[2024-06-08 14:45] LABS: 25-OH Vitamin D, Total 35.7 ng/mL (30-100)
[2024-06-08 15:17] LABS: Albumin Level 4.2 g/dl (3.5-5.0); Chloride 105 mmol/L (98-107)
[2024-06-08 15:18] LABS: Sodium 140 mmol/L (136-145)
[2024-06-08 15:20] LABS: Alanine Aminotransferase 19 U/L (12-78); Alkaline Phosphatase 54 U/L (38-126); Aspartate Amino Transferase 24 U/L (14-36); Bilirubin,Total 0.4 mg/dl (0.2-1.3); Blood Urea Nitrogen 15 mg/dl (7-17); Carbon Dioxide 26 mmol/L (22.0-30.0); Estimated Glomerular Filt Rate 95 ml/min (>60); GFR (African American) 115 ML/MIN (>60)
[2024-06-08 15:21] LABS: Albumin/Globulin Ratio 1.8 (1.1-1.8); Calcium 9.5 mg/dl (8.4-10.2); Globulin 2.4 g/dL (1.3-3.2); Glucose 83 mg/dl (74-100); Total Protein,Serum 6.6 g/dl (6.3-8.2)
[2024-06-08 15:51] LABS: Thyroid Stimulating Hormone 4.41 uIU/mL (0.465-4.68)
== END 2024-06-08 23:59 | disposition home or self-care (01) ==
LOC: RAD 10:20
PROVIDERS: PCP Nurse Practitioner Family; Visit Provider Nurse Practitioner Family
DX: R50.9 Fever, unspecified (principal); R10.9 Unspecified abdominal pain; R19.7 Diarrhea, unspecified; F41.9 Anxiety disorder, unspecified; R11.2 Nausea with vomiting, unspecified; B95.62 Methicillin resistant Staphylococcus aureus infection as the cause of diseases classified elsewhere; R19.8 Other specified symptoms and signs involving the digestive system and abdomen; R79.89 Other specified abnormal findings of blood chemistry
CPT/HCPCS: 74177; 80053; 81001; 82306; 83735; 84443; 85025; 87070; 87077; 87086; 87186; 87205; Q9967

== ENCOUNTER 2024-06-18 08:27 | Outpatient (CLI) | payer OTHER, SELFPAY ==
--- NOTE | 2024-06-18 08:30 | NM_ITS ---
FINAL REPORT CLINICAL HISTORY: Right upper abdominal pain, nausea, vomiting 9:10AM 8.05 MCI TC CHOLETEC 1.4 MCG CCK MILD PAIN WITH CCK COMPARISON: None FINDINGS: Sequential anterior projection images of the abdomen were obtained after the intravenous injection of 8.05 mCi technetium 99m Choletec. There is normal uptake of radiotracer by the liver. Bile ducts, gallbladder, and bowel are seen in a normal timely fashion. After 1 hour, 1.4 ?g of CCK was injected intravenously for calculation of gallbladder ejection fraction. The gallbladder ejection fraction is 86%, which is within normal limits. IMPRESSION: No evidence of cystic duct or bile duct obstruction. Normal gallbladder ejection fraction of 86%. Reviewed, Interpreted and Dictated by Jett Pimentel MD Transcribed by Adamaris Cole Authenticated and [facility] [place]
--- NOTE | 2024-06-18 08:30 | US_ITS ---
FINAL REPORT TECHNIQUE: Multiple transverse and longitudinal images CLINICAL HISTORY: ruq abdominal pain COMPARISON: 02/08/2023 FINDINGS: The gallbladder shows no wall thickening, distention or stone disease. No biliary ductal dilatation is appreciated. No fluid collections are seen. Limited portions of the right liver are unremarkable. Limited portions of the right kidney are unremarkable. IMPRESSION: 1. No evidence of cholelithiasis 2. No evidence of biliary obstruction Reviewed, Interpreted and Dictated by Jett Pimentel MD Transcribed by Cheryl Rivera Authenticated and [facility]
[2024-06-18] MEDS: ISOTOPE CHOLETECH;1 DOSE (UP TO 15 MCI) IV (10:55)
[2024-06-18] MEDS: SODIUM CHLORIDE 0.9% 10ML SYR (RAD ONLY) 10 ML IV (10:55)
[2024-06-18] MEDS: SINCALIDE 1.4 MCG in 0.9 % SODIUM CHLORIDE 50 ML 100 MCG IV (10:55)
== END 2024-06-18 23:59 | disposition home or self-care (01) ==
LOC: RAD 08:28
PROVIDERS: PCP Nurse Practitioner Family; Visit Provider Nurse Practitioner Family
DX: R10.11 Right upper quadrant pain (principal); R19.7 Diarrhea, unspecified; R50.9 Fever, unspecified; R11.2 Nausea with vomiting, unspecified
CPT/HCPCS: 76705; 78227; A9537; J2805

== ENCOUNTER 2024-06-28 13:28 | Outpatient (CLI) | payer OTHER, SELFPAY ==
--- NOTE | 2024-06-28 13:39 | XR_ITS ---
FINAL REPORT CLINICAL HISTORY: RT RIB PAIN COMPARISON: None FINDINGS: A single view of the chest with 3 views of the right ribs were obtained. There is no acute cardiopulmonary process. No pneumothorax is identified. No displaced right rib fracture identified. IMPRESSION: No right rib fracture identified. Reviewed, Interpreted and Dictated by Jaun Mg MD Transcribed by Vivi Arvizu Authenticated and [facility]
[2024-06-28 14:11] LABS: Magnesium 1.8 mg/dl (1.6-2.3)
[2024-06-29 15:09] LABS: Antinuclear Antibodies (ANA) Negative (Negative)
== END 2024-06-28 23:59 | disposition home or self-care (01) ==
LOC: LAB 13:29
PROVIDERS: PCP Nurse Practitioner Family; Visit Provider Nurse Practitioner Family
DX: M79.10 Myalgia, unspecified site (principal); R76.8 Other specified abnormal immunological findings in serum; R07.81 Pleurodynia
CPT/HCPCS: 36415; 71101; 83735; 86038

== ENCOUNTER 2024-09-07 12:05 | Outpatient (CLI) | payer OTHER, SELFPAY | END 2024-09-07 23:59 | disposition home or self-care (01) | LOC: LAB.DROPOF 09-08 10:59 | PROVIDERS: PCP Nurse Practitioner Family; Visit Provider Nurse Practitioner Family | DX: L08.82 Omphalitis not of newborn (principal); B95.7 Other staphylococcus as the cause of diseases classified elsewhere | CPT/HCPCS: 87070; 87077; 87186; 87205 ==

== ENCOUNTER 2024-10-02 09:52 | Outpatient (CLI) | payer OTHER, SELFPAY ==
--- NOTE | 2024-10-02 10:00 | US_ITS ---
FINAL REPORT CLINICAL HISTORY: Rule out umbilical abscess COMPARISON: None FINDINGS: Limited sonographic images were obtained of the soft tissues in the abdomen at the area of interest. There is no evidence of mass or abnormal fluid collection at the area of interest. IMPRESSION: No evidence of mass or abnormal fluid collection at the area of interest.} Reviewed, Interpreted and Dictated by Jaun Mg MD Transcribed by Cheryl Rivera Authenticated and [facility]
== END 2024-10-02 23:59 | disposition home or self-care (01) ==
LOC: RAD 09:52
PROVIDERS: PCP Nurse Practitioner Family; Visit Provider Nurse Practitioner Family
DX: L08.82 Omphalitis not of newborn (principal)
CPT/HCPCS: 76705

== ENCOUNTER 2025-01-15 11:37 | Emergency (ER) | payer OTHER, SELFPAY ==
--- OUTSIDE RECORDS SUMMARY | 2024-06-01 07:05 | XMS_ITS ---
Author Organization [address] [place] [address] [address] [facility] Address [address] [place], [place] [id number] Care Team Providers Care Plant Etiologist Name Role Phone KARIS HAIDER [phone] REASON FOR VISIT fyi Encounters Encounter Location Date Provider Diagnosis [id number] [facility] [address] [place], [place] [id number] 06/01/2024 KARIS HAIDER Plan Of Treatment No Information Progress Notes * LEIDYLyly ZaidiDOB:[birth year] (38 yo F)Acc No.[id number]:06/01/2024 Patient: Lyly LOCKE :1985 A ge:38 Y S ex:Female Address:[address] [place] [address] Subjective: * Chief Complaints: * F chinese * Medical History: * Surgical History: * Hospitalization/Major Diagno stic Procedure: * Medications: Objective: * Vitals: * Physical Examination: Assessment: Plan: * Treatment: * Procedure Codes: * true * Date: Generated for Printi ng/Faxing/eTransmitting on: 0 01/15/2025 11:50 AM EDT
--- OUTSIDE RECORDS SUMMARY | 2024-08-07 09:00 | XMS_ITS ---
Author Organization [id number] [facility] Address [address] [place], [place] [id number] Care Team Providers Care Research Geneticist Name Role Phone ANNEMARIE BANGURA Unavailable [phone] REASON FOR VISIT NAUSEA VOMITING/ABD PAIN/WT LOSS/BMJ Encounters Encounter Location Date Provider Diagnosis [id number] [facility] [address] [place], [place] [id number] 08/07/2024 ANNEMARIE BANGURA Plan Of Treatment No Information Progress Notes * Lyly FORBESDOB:[birth year] (39 yo F)Acc No.[id number]:08/07/2024 PROGRESS NOTE Patient: Lyly LOCKE Provider: Josephine BANGURA APRN :1985 A ge:38 Y S ex:Female Date:08/07/2024 C HN#:[id number] Address:[address] [place], [place] [id number] Subjective: * Chief Complaints: * 1 . NAUSEA VOMITING/ABD PAIN/WT LOSS/BMJ. * Medical History: Objective: * Vitals: Assessment: Plan: * Treatment: * Care Plan Details* * This progress note has not b een verified nor is it considered complete until locked and signed by the provider. Sign off status: Pending * Provider: Josephine BANGURA APRN Date: 0 08/07/2024 Generated for Printi ng/Faxing/eTransmitting on: 0 01/15/2025 11:50 AM EDT
--- NOTE | 2025-01-15 11:43 | US_ITS ---
FINAL REPORT TECHNIQUE: Sonographic images of the right upper quadrant were obtained. CLINICAL HISTORY: ruq pain FINDINGS: PANCREAS: Tail of the pancreas is obscured. Head of the pancreas is normal.. LIVER: Homogeneous. No focal hepatic lesion. No intrahepatic biliary ductal dilatation. GALLBLADDER: No gallstones. No gallbladder wall thickening or pericholecystic fluid. COMMON DUCT: 3 mm. Normal for age. RIGHT KIDNEY: The right kidney measures 10.3 cm. There is no hydronephrosis, mass, or stone. FREE FLUID: None. IMPRESSION: Unremarkable ultrasound of the right upper quadrant. Reviewed, Interpreted and Dictated by Julieta Wynne MD Transcribed by Melba Barahona Authenticated and . [facility]
--- NOTE | 2025-01-15 11:43 | XR_ITS ---
FINAL REPORT CLINICAL HISTORY: cp soa COMPARISON: 06/28/2024 FINDINGS: A portable view of the chest was obtained. Cardiac and mediastinal silhouettes are within normal limits. The lungs are clear. There is no pleural effusion or pneumothorax. IMPRESSION: No acute process on this portable exam. Reviewed, Interpreted and Dictated by Julieta Wynne MD Transcribed by Melba Barahona Authenticated and [facility]
--- NOTE | 2025-01-15 11:44 | ECG_ITS ---
APPROVED REPORT Exam: Resting ECG HR:81 bpm ECG Measurements Heart Rate 81 AXES OH 156 P 47 QRSd 89 QRS 70 QT 366 T 46 QTc 403 Conclusion SINUS RHYTHM NORMAL ECG UNCONFIRMED REPORT Electronically signed by : Osito Ivey, 01/16/2025 15:48:07
--- NOTE | 2025-01-15 11:45 | ED_ITS ---
<Statement entered by Tom Ivey MD - 01/16/25 15:42> I was consulted by the RAMAN, and we discussed the complexity of the problems being addressed. I approved the treatment and management plan for this patient's care in the emergency department, thus performing a substantive portion of the medical decision making. Tom Ivey MD, ELSIE, FACEP Discharge Plan Disposition Patient Disposition: Home, Self-Care Referrals Follow up/Referrals: Kena Lynne APRN [Primary Care Provider, Medical] - See instructions Joseph Olson MD [Staff Physician, General Surgery] - See instructions Activity Restrictions/Add. Instructions Additional Instructions/Restrictions: Today you were evaluated in the emergency department. As we discussed, I suggest that you call general surgery to have a discussion about your gallbladder. Please follow-up with your PCP within 24 to 48 hours. Please return to the ED for worsening of condition. Clinical Impressions Clinical Impression: Abdominal pain Instructions Patient Instructions: DI for Abdominal Pain-Adult Print Language Print Language: Dutch Discharge ED Provider: Tom Ivey General Adult HPI General Chief complaint: PAIN Stated complaint: tightness in chest,pressure in chest Time Seen by Provider: 01/15/25 11:40 History of Present Illness HPI narrative: patient is a 39-year-old female PMHx fibromyalgia, gastroparesis who presents to the ED with complaints of chest tightness that radiates to her back, right upper quadrant abdominal pain. Patient states that the pain woke her up from her sleep this morning around 0830, she has not taken anything for pain prior to arrival. She has not had any nausea or vomiting today. Denies any cardiac history. States she does not take any medications at baseline. Related Data Allergies Allergy/AdvReac Type Severity Reaction Status Date / Time amoxicillin Allergy Mild Rash Verified 12/18/24 09:29 cariprazine (From Vraylar) Allergy Unknown Verified 12/18/24 09:29 allergy reaction paroxetine (From Paxil) Allergy Unknown Verified 12/18/24 09:29 allergy reaction PFSH PFS Disclaimer: The information contained in this section may have been updated after the patient was seen, as this information can be updated by other users. Medical History Nausea vomiting and diarrhea Diarrhea Nausea TMJ (temporomandibular joint disorder) Hearing disorder of both ears Chest pain Fatigue UTI (urinary tract infection), uncomplicated Acute lumbar myofascial strain Anxiety and depression OCD (obsessive compulsive disorder) Attention deficit hyperactivity disorder (ADHD) Bipolar depression Alcoholism Vision loss of right eye Insomnia Right sided sciatica Anxiety Depression Vitamin D deficiency (~06/2017) Restless leg syndrome Surgical History History of placement of ear tubes History of tonsillectomy and adenoidectomy History of incision and drainage History of tubal ligation History of partial hysterectomy Family History Family/Other No significant family history Social History Smoking Status: Current every day smoker tobacco type: cigarettes packs per day: 1 second hand exposure: No alcohol intake: former year quit: 2023 substance use type: marijuana current occupational status: unemployed Travel in the last 8 weeks?: None household members: children housing: apartment number of children: 2 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 current occupational exposures/hazards: No caffeine: No Have you lived/traveled outside US in past 30 days?: No Contact w/someone who lives/traveled outside US past 30 days?: No Exposure to someone with infectious disease in past 14 days?: No Do you have a fever (greater than 100.4 F or 38 C)?: No Have you tested positive for COVID-19?: No Exposed to someone with COVID-19 in past 14 days?: No Do you have a sore throat?: No Do you have a cough?: No Do you have any weakness?: No Do you have any diarrhea?: No Are you experiencing any unusual bleeding?: No Do you have any muscle aches/pain?: No Do you have any abdominal pain?: No Are you experiencing loss of taste or smell?: No Other Medical History Have you received the Flu Vaccine for this season: No Have you received the Pneumonia Vaccine: No ROS Obtained: Yes Systems reviewed as appropriate & no additional complaints except as documented Physical Exam General General appearance: alert and in no apparent distress Head Head exam: atraumatic Eye Eye exam: Present PERRL and EOMI Neck Neck exam: Present full ROM Respiratory Respiratory exam: Present normal lung sounds bilaterally and respiratory distress Cardiovascular Cardiovascular exam: Present regular rate and normal rhythm Abdominal Exam Abdominal exam: Present soft and tenderness (epigastric & RUQ ) Extremities Exam Extremities exam: Present full ROM Back Exam Back exam: Present normal inspection and full ROM Neurological Exam Neurological exam: Present alert and oriented X3 Psychiatric Psychiatric exam: Present normal affect Skin Skin exam: Present warm and dry Medical Decision Making Medical Records Screening: Per USPSTF and CDC recommendations, given the prevalence of disease in our region, it is our hospital?s policy to screen for HIV and viral Hepatitis for all patients aged 18 and over and those with ongoing risk factors. Louie Inquiry Pt receiving controlled substance: No Vital Signs: 01/15/25 11:48 01/15/25 12:01 01/15/25 15:00 Temperature 98.7 F Temperature Source Oral Pulse Rate 86 77 Pulse Rate [Right] 92 H Respiratory Rate 16 11 L 22 Blood Pressure 120/69 114/84 Blood Pressure [Right Arm] 155/92 H Blood Pressure Mean [Right Arm] 113 Blood Pressure Source [Right Arm] Automatic Cuff Blood Pressure Position [Right Arm] Supine 02 Sat by Pulse Oximetry 99 96 97 Oxygen Delivery Method Room Air 01/15/25 15:31 Temperature 98.4 F Temperature Source Pulse Rate 87 Pulse Rate [Right] Respiratory Rate 18 Blood Pressure 118/84 Blood Pressure [Right Arm] Blood Pressure Mean [Right Arm] Blood Pressure Source [Right Arm] Blood Pressure Position [Right Arm] 02 Sat by Pulse Oximetry Oxygen Delivery Method Lab Data Lab Results 01/15/25 11:45: WBC 12.0 H, RBC 4.67, Hgb 14.4, Hct 41.4, MCV 88.7, MCH 30.8, MCHC 34.8, RDW 12.9, Plt Count 330, MPV 9.2, Neut % (Auto) 70.0, Lymph % (Auto) 23.8, [place] % (Auto) 4.6, Eos % (Auto) 0.8, Baso % (Auto) 0.5, Neut # (Auto) 8.4 H, Lymph # (Auto) 2.9, [place] # (Auto) 0.6, Eos # (Auto) 0.1, Baso # (Auto) 0.1, Sodium 140, Potassium 4.1, Chloride 106, Carbon Dioxide 24, Anion Gap 14.1, BUN 10, Creatinine 0.50 L, Estimated Creat Clear 171, Estimated GFR 139, Est GFR ( Amer) 168, Glucose 123 H, Calcium 9.5, Total Bilirubin 0.6, AST 25, ALT 26, Alkaline Phosphatase 72, Troponin I < 0.01, Total Protein 8.2, Albumin 5.0, Globulin 3.2, Albumin/Globulin Ratio 1.6, Lipase 50, Serum HCG, Qual Negative, HCV Ab WEST w/Rflx PCR Qn Negative, HIV Ag/Ab Combo Qual Negative 01/15/25 14:31: Troponin I < 0.01 01/15/25 14:35: Urine Color Yellow, Urine Appearance Clear, Urine pH 6.0, Ur Specific [place] >= 1.030, Urine Protein Trace, Urine Glucose (UA) Negative, Urine Ketones Negative, Urine Blood 2+ A, Urine Nitrate Negative, Urine Bilirubin Negative, Urine Urobilinogen 0.2, Ur Leukocyte Esterase Negative, Urine RBC 10-20, Urine WBC 3-5, Ur Squamous Epith Cells 5-10, Urine Bacteria 2+ 01/15/25 11:45 01/15/25 11:45 Orders (Tests/Meds): ED MEDICATIONS Discontinued Medications Generic Name Dose Route Start Last Admin Trade Name Freq PRN Reason Stop Dose Admin Belladonna Alkaloids 60 ml 01/15/25 11:45 01/15/25 11:56 Belladonna Alkaloids 60 Ml Ml PO 01/15/25 11:46 60 ml ONCE ONE Administration Ondansetron HCl 4 mg 01/15/25 11:45 01/15/25 11:56 Ondansetron 4mg/2ml Vial IV 01/15/25 11:46 4 mg ONCE ONE Administration ORDERS Category Date Time Status CXR --portable [XR chest portable] Stat Exams 01/15/25 11:43 Completed US RUQ [US abdomen limited] Stat Exams 01/15/25 11:43 Completed CBC w/Auto Diff [Complete Blood Count Auto Diff] Stat Lab 01/15/25 11:45 Completed CMP [Comprehensive Metabolic Panel] Stat Lab 01/15/25 11:45 Completed HCG Qualitative, Serum Stat Lab 01/15/25 11:45 Completed HIV Combo Stat Lab 01/15/25 11:45 Completed Hepatitis C Ab Qual. W/ RFX Stat Lab 01/15/25 11:45 Completed Lipase Stat Lab 01/15/25 11:45 Completed Trop I [Troponin I] Stat Lab 01/15/25 11:45 Completed Troponin I Q3H Lab 01/15/25 14:31 Completed Urinalysis and Microscopic Stat Lab 01/15/25 14:35 Completed Urine Culture Stat Micro 01/15/25 14:35 Received Medical Decision Narrative: In summary, patient is a 39-year-old female PMHx fibromyalgia, gastroparesis who presents to the ED with complaints of chest tightness that radiates to her back, right upper quadrant abdominal pain. Patient states that the pain woke her up from her sleep this morning around 0830, she has not taken anything for pain prior to arrival. She has not had any nausea or vomiting today. Reports drinking a few drinks of alcohol last night. Denies any cardiac history. States she does not take any medications at baseline. Upon initial evaluation patient is alert, oriented and cooperative. She is hemodynamically stable, afebrile. Physical exam remarkable for right upper quadrant abdominal pain, abdomen is soft. Patient states the right upper quadrant abdominal pain radiates to her right upper back. Denies any history of blood clots. Is not tachycardic. Denies fever, chills, body aches, headache, visual disturbances, posterior neck pain, dysuria. Differential diagnoses include ACS, dissection, pulmonary embolism, pneumonia, pneumothorax, infectious process, cholecystitis, cholelithiasis, among others. Discussed with patient we will proceed with cardiac workup and a right upper quadrant abdominal ultrasound. She will be symptomatically managed with Zofran and a GI cocktail. Labs reviewed. CBC mild leukocytosis, WBC 12, stable H&H. CMP unremarkable for any actionable abnormalities. First troponin < 0.01. hCG negative. Second troponin < 0.01. My informal review of the right upper quadrant abdominal ultrasound shows sludge. I discussed with patient she will need to call general surgery tomorrow for follow-up appointment to discuss having gallbladder removed. Upon reevaluation, patient states her condition has improved. She is resting comfortably. We discussed follow-up. We discussed return precautions to the ED and she verbalized understanding. Critical Care Critical Care Time Critical Care Time: No
[2025-01-15 11:48] VITALS: BP 155/92; PULSE 92; RESP 16; TEMP 37.1; O2SAT 99; BMI 23.6
--- OUTSIDE RECORDS SUMMARY | 2025-01-15 11:50 | XMS_ITS | Encounter Summary ---
[facility] Address [address] [place] [address] Care Team Providers Care Candy Spreader Name Role Phone Kena Lynne APRN Primary Care Provider + [phone] Encounter Details Date Type Department Care Team (Late st Contact Info) Description 12/05/2024 Telephone [facility] [address] [place] [address] Dion Álvarez MD [address] [place] [address] Social History Tobacco Use Types Packs/Day Years Used Date Smoking Tobacco: Every Day Cigarettes 1 5 Passive Smoke Exposure: Past Smokeless Tobacco: Never Alcohol Use Standard Drinks/Week Comments Not Currently 0 (1 standard drink = 0.6 oz pure alcohol) About once a month ill have a drink Comments Unknown Sex and Gender Information Value Date Recorded Sex Assigned at Not on file Legal Sex Female 12:44 PM EDT Gender Identity Not on file Sexual Orientation Not on file documented as of this encounter Miscellaneous Notes * Telephone Encounter - Whitney Reed MA - 12/05/2024 9:04 AM EDT I called patient and left a VM to ask patient if she was planning on coming in for her appointment today or needing to reschedule until after she has been able to complete her imaging. Asked her to give us a call back. documented in this encounter Plan of Treatment Not on file documented as of this encounter Visit Diagnoses Not on filedocumented in this encounter Care Teams Candy Spreader Relationship Specialty Start Date End Date Kena Lynne APRN [address] [place] [address] PCP - General Internal Medicine 09/10/24 documented as of this encounter
--- OUTSIDE RECORDS SUMMARY | 2025-01-15 11:50 | XMS_ITS | Clinical Summary ---
Author Organization [facility] Address [address] [place] [address] Care Team Providers Care Director Graphics Name Role Phone LynneKena DANG Primary Care Provider [phone] Allergies Active Allergy Reactions Criticality Noted Date Comments Amoxicillin Rash,Unknown (See Comments) Low 022 Aspirin Rash Low 06/20/2023 Cariprazine Other (See Comments),Hives Medium 07/18/19 25 Paroxetine Hives Medium 07/18/2024 Penicillin G Rash Low 10/10/2024 Medications oxybutynin XL (DITROPAN-XL) 5 MG 24 hr tabletIndicatio ns:Nephrolithia sis Take 1 tablet by mouth Daily. PRN BLADDER SPASM 14 tablet 10/25/2024 Active phenazopyridine (Pyridium) 200 MG tabletIndicatio ns:Nephrolithia sis Take 1 tablet by mouth 3 (Three) Times a Day As Needed for Bladder Spasms. 20 tablet 10/25/2024 Active nitrofurantoin, macrocrystal-mo nohydrate, (Macrobid) 100 MG capsuleIndicati ons:Nephrolithi asis Take 1 capsule by mouth 2 (Two) Times a Day. 14 capsule 10/25/2024 Active ketorolac (TORADOL) 10 MG tabletIndicatio ns:Nephrolithia sis Take 1 tablet by mouth Every 6 (Six) Hours As Needed for Moderate Pain. 15 tablet 10/25/2024 Active meloxicam (MOBIC) 15 MG tablet 10/15/2024 Active Active Problems Problem Noted Date Diagnosed Date Nephrolithiasis 10/16/2024 Encounters Date Type Department Care Team Description 12/05/2024 Telephone [facility] [address] [facility] [address] [place] [address] Dion Álvarez MD 10/30/2024 10:50 AM EDT Procedure visit [facility] [address] [facility] [address] [place] [address] Dion Álvarez MD Nephrolithiasis (Primary Dx) 10/30/2024 Travel 10/26/2024 Telephone [facility] [address] [facility] [address] [place] [address] Dion Álvarez MD Blood in Urine 10/25/2024 5:00 AM EDT Outside Facility Service [facility] [address] [facility] [address] [place] [address] Dion Álvarez MD Nephrolithiasis (Primary Dx) 10/25/2024 Telephone [facility] [address] [facility] [address] [place] [address] Dion Álvarez MD 10/25/2024 Documentation [facility] [address] [facility] [address] [place] [address] Dion Álvarez MD from Last 3 Months Family History Medical History Relation Name Comments Cancer Maternal Aunt Kat lind Cancer Mother Rizwana linder Relation Name Status Comments Maternal Aunt Kat lind Alive Mother Rizwana linder Alive Social History Tobacco Use Types Packs/Day Years Used Date Smoking Tobacco: Every Day Cigarettes 1 5 Passive Smoke Exposure: Past Smokeless Tobacco: Never Tobacco Cessation:Counseling Given: No Alcohol Use Standard Drinks/Week Comments Not Currently 0 (1 standard drink = 0.6 oz pure alcohol) About once a month ill have a drink Comments Unknown Sex and Gender Information Value Date Recorded Sex Assigned at Not on file Legal Sex Female 12:44 PM EDT Gender Identity Not on file Sexual Orientation Not on file Last Filed Vital Signs Vital Sign Reading Time Taken Comments Blood Pressure - - Pulse - - Temperature - - Respiratory Rate - - Oxygen Saturation - - Inhaled Oxygen Concentration - - Weight 70.3 kg (155 lb) 10/30/2024 10:13 AM EDT Height 172.7 cm (5' 7.99 ) 10/30/2024 10:13 AM E DT Body Mass Index 23.57 10/30/2024 10:13 AM EDT Plan of Treatment Health Maintenance Due Date Last Done Comments Annual Gynecologic Pelvic an d Breast Exam 1987 Pneumococcal Vaccine 0-49 (1 of 2 - PCV) 08/31/2006 TDAP/TD VACCINES (3 - Td or Tdap) 03/23/2022 012, 12/16/2003 COVID-19 Vaccine ( - 2023- season) 2024 ANNUAL PHYSICAL 10/10/2024 INFLUENZA VACCINE 03/06/2025 04/18/2018, , 03/09/2010 HEPATITIS C SCREENING Completed 03/14/2024, 023 Insurance Care Teams Director Graphics Relationship Specialty Start Date End Date Kena Lynne APRN [address] [facility] [address] [place] [address] PCP - General Internal Medicine 09/10/24
--- OUTSIDE RECORDS SUMMARY | 2025-01-15 11:50 | XMS_ITS | Clinical Summary ---
Author Organization [facility] Address [address] [place] [address] Care Team Providers Care Operations And Maintenance Specialist Name Role Phone Roney Cai MD Primary Care Provider + [phone] Chi Stone MD Unavailable [phone] Allergies Active Allergy Reactions Criticality Noted Date Comments Amoxicillin Unknown - Patient st ates they do not know rxn details Low 02/19/2022 Paroxetine Hives Medium 07/18/2024 Cariprazine Hives Medium 07/18/2024 Medications acetaminophen (Tylenol) 500 MG tablet Take 2 tablets (1,000 mg) by mouth every 6 (six) hours if needed. Active ibuprofen 800 MG tablet TAKE ONE TABLET BY MOUTH EVERY EIGHT HOURS NEEDED ABDOMINAL PAIN OR DISCOMFORT 60 tablet 2 Active Additional Information Patient not taking.Reported on 07/18/2024 cyclobenzaprine (Flexeril) 10 MG tablet 3 Active HYDROcodone-humaira taminophen (Stigler) 5-325 MG tablet 2 Active ibuprofen 600 MG tablet 2 Active ketorolac (Toradol) 10 MG tablet 3 Active levoFLOXacin (Levaquin) 750 MG tablet 2 Active meloxicam (Mobic) 15 MG tablet 3 Active methylPREDNISol one (Medrol Dospak) 4 MG tablets 3 Active metroNIDAZOLE (Flagyl) 500 MG tablet 2 Active nitrofurantoin, macrocrystal-mo nohydrate, (Macrobid) 100 MG capsule 3 Active omeprazole (PriLOSEC) [address] capsule 3 Active ondansetron (Zofran) 4 MG tablet 3 Active ondansetron (Zofran) 8 MG tablet 2 Active predniSONE (Deltasone) 20 MG tablet 3 Active zolpidem (Ambien) 10 MG tablet 2 Active metoprolol succinate XL (Toprol-XL) 25 MG 24 hr tablet 4 Active QUEtiapine (SEROquel) 50 MG tablet 4 Active QUEtiapine (SEROquel) 100 MG tablet 4 Active simvastatin (Zocor) 20 MG tablet 4 Active escitalopram (Lexapro) 10 MG tablet 4 Active busPIRone (Buspar) 7.5 MG tablet 4 Active oxybutynin (Ditropan) 5 MG tabletIndicatio ns:Urgency of urination Take 1 tablet (5 mg) by mouth 3 (three) times a day. 270 tablet 1 4 Active Additional Information Patient not taking.Reported on 07/18/2024 Active Problems No known active problems Family History Medical History Relation Name Comments No Known Problems Brother No Known Problems Daughter Diabetes Father Diabetes Father's Brother Diabetes Father's Sister No Known Problems Maternal Grandfather Breast cancer Maternal Grandmother Heart disease Maternal Grandmother Cervical cancer Mother Conversions - Other Mother malignan t neoplasm of ovary Diabetes Mother Uterine cancer Mother Heart disease Mother's Brother Heart disease Mother's Sister Diabetes Paternal Grandfather Diabetes Paternal Grandmother Parkinson Disease Paternal Grandmother No Known Problems Sister Relation Name Status Comments Brother Alive Daughter Alive Father Alive Father's Brother Alive Father's Sister Alive Maternal Grandfather Maternal Grandmother Mother Mother's Brother Mother's Sister Alive Paternal Grandfather Paternal Grandmother Sister Alive Social History Tobacco Use Types Packs/Day Years Used Date Smoking Tobacco: Every Day Cigarettes 1 12 Smokeless Tobacco: Never Tobacco Cessation:Ready to Q uit: Not Asked; Counseling Given: Not Answered Alcohol Use Standard Drinks/Week Comments Not Currently 14 (1 standard drink = 0.6 oz pu re alcohol) 2 drinks per day PHQ-2 Answer Date Recorded Patient Health Questionnaire-2 Score 0 07/18/2024 CAGE ASSESSMENT Answer Date Recorded Due to the following: Medical status 03/14/2024 Maximum number of drinks you had on a given occasion in the last month? 0 drinks 03/14/2024 How many alcoholic Beverages do you typically drink in a week? 0 - 7 per week 03/14/2024 Have you ever felt you should CUT down on your d rinking? 0 03/14/2024 Have you been ANNOYED by peo ple criticizing your drinking? 0 03/14/2024 Have you felt GUILTY about your drinking? 0 03/14/2024 Have you had a drink first t hill in the morning ([employer]) to steady your nerves or to get rid of a hangover? 0 03/14/2024 CAGE Questionnaire Score 0 024 PHQ-2A Answer Date Recorded Patient Health Questionnaire-2 Score 0 03/01/2023 Comments No Sex and Gender Information Value Date Recorded Sex Assigned at Female 03/14/2024 2:50 PM EDT Legal Sex Female 8:06 PM EDT Gender Identity Female 03/14/2024 2:50 PM EDT Sexual Orientation Not on file Last Filed Vital Signs Vital Sign Reading Time Taken Comments Blood Pressure 134/85 07/18/2024 12:02 PM EST Pulse 105 07/18/2024 12:02 PM EST Temperature 36.6 C (97.8 F) 07/18/2024 12:02 PM EST Respiratory Rate 16 07/18/2024 12:0 2 PM EST Oxygen Saturation 98% 07/18/2024 12: 02 PM EST Inhaled Oxygen Concentration - - Weight 70.2 kg (154 lb 12.2 oz) 025 12:02 PM EST Height 172.7 cm (5' 8 ) 07/18/2024 12:0 2 PM EST Body Mass Index 23.53 07/18/2024 12:02 PM EST Plan of Treatment Health Maintenance Due Date Last Done Comments [facility]-/Child/Adol SDOH Screenings 1987 [id number] Vaccine (#1) 08/31/1992 [facility]-Varicella Vaccines (1 of 2 - 13+ 2-dose series) 08/31/2000 [facility]- SDOH Screenings 08/31/2005 [facility]-Adult SDOH Screenings 08/31/2005 [facility]-Pneumococcal Vaccine: Pediatrics (0 to 5 Years) and At-Risk Patients (6 to 49 Years) (1 of 2 - PCV) 08/31/2006 [facility]-Zoster Vaccines (1 of 2) 08/31/2006 [facility]-Pap Smear 08/31/2008 HPV Vaccines (1 - 3-dose SCDM series) 08/31/2014 [facility]-Cervical Cancer Screening 08/31/2017 [facility]-HPV/Cotest 08/31/2017 [facility]-DTaP,Tdap,and Td Vaccines (3 - Td or Tdap) 03/23/2022 03/23/2012, 12/16/2003 [facility]-Influenza Vaccine (#1) 02/04/202504/18, 03/23/2012, 03/09/2010 [facility]-Depression Screening 07/18/2025 07/18/2024 [facility]-Hepatitis B Vaccines Completed 004, 10/29/1999, 09/24/1999 [facility]-HIV Screening Completed 03/14/2024, 02/22/2023 [facility]-Hepatitis C Screening Completed 2023, 02/22/2023 [facility]-HIB Vaccines Aged Out No longer e ligible based on patient's age to complete this topic [facility]-Hepatitis A Vaccines Aged Out No longer eligible based on patient's age to complete this topic [facility]-IPV Vaccines Aged Out No longer e ligible based on patient's age to complete this topic [facility]-Rotavirus Vaccines Aged Out No lo nger eligible based on patient's age to complete this topic Procedures Procedure Name Priority Date/Time Associated Diagnosis Comments HEPATITIS C ANTIBODY - ED W/REFLEX TO HCV QUANT PCR STAT 03/14/2024 2:43 PM EDT ED HIV 1/2 ANTIBODY/ANTIGEN SCREEN WITH REFLEX TO HIV I/II DIFFERENTIATION STAT 03/14/2024 2:43 PM EDT from Last 3 Months or Most Recently Relevant to Health Maintenance Results * ED HIV 1/2 Antibody/Antigen Screen w/Reflex to HIV 1/2 Differentiation (03/14/2024 2:43 PM EDT) [facility] HIV 1 & 2 Antibody/Antigen Screen Non Reactive Non Reactive 03/14/2024 3:41 PM EDT [facility] Comment:Screening for HIV 1 & 2 antibodies, and P24 antigen is NONREACTIVE. No confirmatory testing is required. Blood Venous blood specimen / Unknown Venipuncture / Unknown 03/14/2024 2:43 PM EDT 03/14/2024 2:53 PM EDT Alexander Wong MD LAB BLOOD ORDERABLES Final Res ult [facility] [address] [place] [address] * Hepatitis C Antibody - ED (03/14/2024 2:43 PM EDT) [facility] Hepatitis C Antibody Negative Negative 03/14/2024 3:41 PM EDT [facility] Blood Venous blood specimen / Unknown Venipuncture / Unknown 03/14/2024 2:43 PM EDT 03/14/2024 2:53 PM EDT Alexander Wong MD LAB BLOOD ORDERABLES Final Res ult [facility] [address] [place] [address] from Last 3 Months or Most Recently Relevant to Health Maintenance Insurance [employer] [facility] MEDICAID Care Teams Operations And Maintenance Specialist Relationship Specialty Start Date End Date Roney Cai MD [address] [place] [address] PCP - General 02/19/22 Chi Stone MD [address] [facility] [address] [place] [address] Consulting Physician Urology 08/30/23
--- OUTSIDE RECORDS SUMMARY | 2025-01-15 11:50 | XMS_ITS | Patient Health Record ---
Author Organization [id number] [facility] Address [address] [place], [place] [id number] Care Team Providers Care Valuer Name Role Phone ANNEMARIE BANGURA Unavailable [phone] KARIS HAIDER Unavailable [phone] Reason For Referral No Information Encounters Encounter Location Date Provider Diagnosis [id number] [facility] [address] [place], [place] [id number] 06/01/2024 KARIS HAIDER Plan Of Treatment No Information Insurance Providers Payer Name Payer Address Payer Phone Subscriber Number Group Number Insured Name Patient Relationship to Insured Coverage Start Date Coverage End Date [facility] [address] [place], [place] [id number] [phone] [id number] Lyly Linder Self - patient is the insured
[2025-01-15 11:53] LABS: Hematocrit 41.4 % (37.0-47.0); Hemoglobin 14.4 g/dL (12.2-16.2); Immature Granulocytes % 0.3 %; Mean Corpuscular HGB Conc 34.8 g/dL (31.8-35.4); Mean Corpuscular Hemoglobin 30.8 pg (27.0-31.2); Mean Corpuscular Volume 88.7 fl (81-99); Nucleated Red Blood Cells % 0 %; Platelet Count 330 K/mm3 (142-424); Red Blood Count 4.67 M/mm3 (4.20-5.40); Red Cell Distribution Width-SD 41.8 fL; White Blood Count 12.0 K/mm3 (4.8-10.8)
[2025-01-15] MEDS: BELLADONNA ALKALOIDS 60 ML ML PO (11:56)
[2025-01-15] MEDS: ONDANSETRON 4MG/2ML VIAL 4 MG IV (11:56)
[2025-01-15 11:58] LABS: Albumin Level 5.0 g/dl (3.5-5.0); Chloride 106 mmol/L (98-107); Potassium 4.1 mmoL/L (3.5-5.1); Sodium 140 mmol/L (136-145)
[2025-01-15 12:01] VITALS: BP 120/69; PULSE 86; RESP 11; O2SAT 96
[2025-01-15 12:01] LABS: Alanine Aminotransferase 26 U/L (12-78); Albumin/Globulin Ratio 1.6 (1.1-1.8); Alkaline Phosphatase 72 U/L (38-126); Anion Gap 14.1 mEq/L (5-15); Aspartate Amino Transferase 25 U/L (14-36); Bilirubin,Total 0.6 mg/dl (0.2-1.3); Blood Urea Nitrogen 10 mg/dl (7-17); Calcium 9.5 mg/dl (8.4-10.2); Carbon Dioxide 24 mmol/L (22.0-30.0); Creatinine Clearance Estimated 171 mL/min (50-200); Creatinine,Serum 0.50 mg/dl (0.52-1.04); Estimated Glomerular Filt Rate 139 ml/min (>60); GFR (African American) 168 ML/MIN (>60); Globulin 3.2 g/dL (1.3-3.2); Glucose 123 mg/dl (74-100); Lipase 50 U/L (23-300); Total Protein,Serum 8.2 g/dl (6.3-8.2)
[2025-01-15 12:15] LABS: Troponin I < 0.01 ng/ml (0.00-0.034)
[2025-01-15 13:03] LABS: Hepatitis C Ab Qual. W/ RFX NEGATIVE (Negative)
[2025-01-15 13:14] LABS: HCG Qualitative, Serum Negative (Negative)
[2025-01-15 14:40] LABS: Microscopic, Urine URINE MICROSCOPIC (MICROSCOPIC)
[2025-01-15 14:54] LABS: Bilirubin,Urine Negative (Negative); Color,Urine YELLOW (Yellow); Glucose,Urine (UA) Negative (Negative); Ketones,Urine Negative (Negative); Leukocyte Esterase,Urine Negative (Negative); PH,Urine 6.0 (5.0-8.5); Protein,Urine TRACE (Negative); Specific Gravity, Urine >= 1.030 (1.005-1.030); Urobilinogen,Urine 0.2 EU/dl (0.2)
[2025-01-15 15:00] VITALS: BP 114/84; PULSE 77; RESP 22; O2SAT 97
[2025-01-15 15:21] LABS: Troponin I < 0.01 ng/ml (0.00-0.034)
[2025-01-15 15:31] VITALS: BP 118/84; PULSE 87; RESP 18; TEMP 36.9; O2SAT 98
[2025-01-15 15:44] LABS: Bacteria,Urine 2+ /lpf
== END 2025-01-15 15:32 | disposition home or self-care (01) ==
PROVIDERS: Nurse Practitioner; Emergency Provider Student in an Organized Health Care Education/Training Program; PCP Nurse Practitioner Family
DX: R10.11 Right upper quadrant pain (principal); R10.13 Epigastric pain; K82.9 Disease of gallbladder, unspecified; F17.210 Nicotine dependence, cigarettes, uncomplicated
CPT/HCPCS: 71045; 76705; 80053; 81001; 83690; 84484; 84703; 85025; 86803; 87086; 87389; 93005; 96374; 99285; J2405